=== PATIENT | male | born 1955 | race Caucasian/White ===

== ENCOUNTER 2021-01-24 12:06 | Outpatient (CLI) | payer MEDICARE, SELFPAY ==
[2021-01-24 12:15] VITALS: BP 146/75; PULSE 91; RESP 24; TEMP 37.7; O2SAT 93
[2021-01-24 12:38] VITALS: BP 128/84; PULSE 89; RESP 28; TEMP 37.8; O2SAT 79; BMI 38.6
--- NOTE | 2021-01-24 13:42 | PC.NURSE ---
Pt was SOB upon arriving to [facility]. Pt states he had been SOB for several days. Vitals 99.9, 91 HR, 24 RR, 146/75 BP, 93% RA. Lungs diminished. After infusion, patient remained SOB with vitals 100.1, 28 RR, 89 HR, 128/84, 79% RA. Patient placed on 8 L oxygen mask and taken via gurney to ER. Report given to CONNER Perez charge nurse. Registration notified.
== END 2021-01-24 12:07 | disposition home or self-care (01) ==
LOC: OPS 12:09
PROVIDERS: PCP Family Medicine; Visit Provider Nurse Practitioner
DX: U07.1 COVID-19 (principal)
CPT/HCPCS: 96365

== ENCOUNTER 2021-01-24 13:15 | Inpatient (IN) | payer MEDICARE, SELFPAY ==
[2021-01-24 13:16] VITALS: BP 129/70; PULSE 82; RESP 26; TEMP 37.9; O2SAT 96; BMI 38.6
--- NOTE | 2021-01-24 13:22 | ED_ITS ---
HPI - COVID General: Chief Complaint: COVID symptoms Stated Complaint: RESP DISTRESS, COVID Time Seen by Provider: 01/24/21 13:22 History of Present Illness: HPI Narrative: Mr. Shafer is a 65-year-old gentleman without significant past medical history presents emerged department due to hypoxemia. He has had fairly typical Covid symptoms for approximately 7 days and tested positive for Covid on 01/19. He was at monoclonal antibody infusion clinic today and completed the infusion without apparent complication. Routine vital signs subsequent to this he was found to be hypoxemic with 77% oxygen saturation on room air. He has not had significant changes in his symptoms which are moderate intensity aches, pains, shortness of breath, and weakness, and generalized malaise. He denies any typical allergic reaction or anaphylaxis symptoms at this time. He denies other changes to health, history of similar, exacerbating, provoking, or alleviating factors that he identifies. He presents on 5 L of oxygen via nasal cannula. COVID Results: No Data to Display Review of Systems General: Reports: 10 or more systems reviewed and unremarkable except in HPI and below PFSH ED PFSH: Medical History Coronary artery disease History of 2 stents, does not use any medications other than aspirin No pertinent past medical history Surgical History H/O hemorrhoidectomy History of appendectomy History of heart artery stent Hx laparoscopic cholecystectomy Family History Denies family history of Diabetes Clotting disorder Dementia Social History History of recent travel: No Physical Exam Narrative: EXAM NARRATIVE: GENERAL/CONSTITUTIONAL -somewhat ill-appearing. Eyes - PERRL, no conjunctival injection ENMT - Atraumatic external nose and ears. Moist mucous membranes NECK - supple. trachea midline CARDIOVASCULAR - regular rate and rhythm. RESPIRATORY -coarse to auscultation bilaterally. Mild respiratory distress with tachypnea. Supplemental oxygen in place. ABDOMEN/GI - Nontender/Nondistended. No tenderness to percussion or evidence of peritonitis MSK - Extremities without obvious deformity or tenderness to palpation SKIN - Warm, Dry NEURO - alert and appropriately oriented. Moves all extremities equally. Course ED course: - Patient was seen and evaluated by me at bedside - Patient placed on cardiac monitors, IV access obtained - Initial evaluation notable for somewhat ill appearance, respiratory distress as noted above with supplemental oxygen in place. - Labs notable for no leukocytosis. Metabolic panel consistent with likely dehydration. ABG with compensatory respiratory alkalosis and low PO2. Procalcitonin is elevated raising concern for superimposed bacterial infection, antibiotics given. - Imaging notable for pulmonary infiltrates - Upon serial reexamination after treatment the patient was mildly improved - Based on patient history, evaluation, labs, and imaging as interpreted the most likely cause of the patient's condition is COVID-19 pneumonia with superimposed bacterial pneumonia - The results of ED evaluation were discussed with the patient including plan for admission due to requirement for level of care not available if discharged to prevent significant worsening/deterioration. -Hospitalist service contacted and agreed admit the patient. - Patient was admitted without further deterioration or significant events. Vital Signs: Vital signs: Vital Signs Temperature 98.0 F 01/27/21 20:00 Pulse Rate 59 L 01/27/21 20:00 Respiratory Rate 18 01/27/21 20:00 Blood Pressure 134/80 01/27/21 20:00 Pulse Oximetry 90 01/27/21 20:00 MDM - COVID Medical Records: Attestation: I reviewed the patient's medical records. Lab Data: Attestation: I reviewed the patient's lab results. Labs: Lab Results 01/24/21 01/24/21 01/24/21 14:08 14:11 14:11 WBC 5.3 10^3/uL 10^3/ uL (4.0-10.0) RBC 4.97 10^6/uL 10^6 /uL (4.1-5.3) Hgb 13.6 g/dL g/dL (11.7-16.6) Hct 42.4 % % (42.0-52.0) MCV 85.3 fl fl (80-94) MCH 27.4 pg L pg (28.0-34.0) MCHC 32.1 g/dL g/dL (30.0-36.0) RDW 14.3 % % (12.1-15.1) Plt Count 130 10^3/cmm 10^3 /cmm (130-400) MPV 11.6 fL H fL (7.4-10.4) Lymph % (Auto) Not Reportable [place] % (Auto) Not Reportable Lymph # (Auto) Not Reportable [place] # (Auto) Not Reportable Total Counted 100 (0-100) Atypical Lymphs % 1.0 % % (0-5) Absolute Neutrophi ls 4.0 10^3/cmm 10^3 /cmm (1.4-6.5) Segmented Neutroph ils 74 % % Abs Segm Neuts (Ma n) 3.9 10/cmm 10/cmm (1.6-7.1) Band Neutrophils 1.0 % % Abs Band Neuts (Ma n) 0.1 10^3/cmm 10^3 /cmm (0.0-1.2) Absolute Lymphocyt es 1.1 10^3/cmm L 10 ^3/cmm (1.2-3.4) Lymphocytes (Manua l) 20 % % Monocytes (Manual) 4.0 % % Absolute Monocytes 0.2 10^3/cmm 10^3 /cmm (0.1-0.6) Eosinophils (Manua l) 0 % % Absolute Eosinophi ls 0.0 10^3/cmm 10^3 /cmm (0.0-0.7) Basophils (Manual) 0.0 % % Absolute Basophils 0.0 10^3/cmm 10^3 /cmm (0.0-0.2) Platelet Estimate Normal (Normal) Specimen Type Arterial Sample Site Radial, left ABG pH 7.49 H (7.35-7.45) ABG pCO2 32.2 mmHg L mmHg (35-45) ABG pO2 72.6 mmHg L mmHg (80.0-100.0) ABG HCO3 24.6 mmol/L mmol/ L (22-26) ABG Base Excess 1.9 mmol/L mmol/L (-2.0-2.0) Tc Test Pos Hematocrit 43.6 % % (42-52) O2 Delivery Device Nc O2 Liters/Min 5.0 % % FiO2 40.0 % % Nuclear Licensing Engineer ID [place] Sodium 131 mmol/L L mmol /L (136-145) Potassium 4.1 mmol/L mmol/L (3.5-5.1) Chloride 93 mmol/L L mmol/ L (98-107) Carbon Dioxide 20 mmol/L L mmol/ L (22-29) Anion Gap 22.1 H (5-19) BUN 16 mg/dL mg/dL (8-23) Creatinine 1.2 mg/dL mg/dL (0.7-1.2) GFR Calculation 60.8 mL/min L mL/ min (90-130) Glucose 81 mg/dL mg/dL (65-115) Calculated Osmolal ity 272 mOsm/kg L mOs m/kg (285-295) Lactic Acid Calcium 7.4 mg/dL L mg/dL (8.5-10.5) Total Bilirubin 0.5 mg/dL mg/dL (0.15-1.2) AST 30 U/L U/L (0-40) ALT 13 U/L U/L (0-41) Alkaline Phosphata se 57 IU/L IU/L (40-130) Troponin T Baselin e C-Reactive Protein 127.7 mg/L H mg/L (0.0-4.9) NT-Pro-B Natriuret Pep 357 pg/mL H pg/mL (0-125) Total Protein 6.1 g/dL L g/dL (6.6-8.7) Albumin 3.5 g/dL g/dL (3.5-5.2) Globulin 2.6 g/dL g/dL (1.3-4.6) Procalcitonin 0.69 ng/mL H ng/m L (0-0.5) 01/24/21 01/24/21 14:11 14:11 WBC RBC Hgb Hct MCV MCH MCHC RDW Plt Count MPV Lymph % (Auto) [place] % (Auto) Lymph # (Auto) [place] # (Auto) Total Counted Atypical Lymphs % Absolute Neutrophi ls Segmented Neutroph ils Abs Segm Neuts (Ma n) Band Neutrophils Abs Band Neuts (Ma n) Absolute Lymphocyt es Lymphocytes (Manua l) Monocytes (Manual) Absolute Monocytes Eosinophils (Manua l) Absolute Eosinophi ls Basophils (Manual) Absolute Basophils Platelet Estimate Specimen Type Sample Site ABG pH ABG pCO2 ABG pO2 ABG HCO3 ABG Base Excess Tc Test Hematocrit O2 Delivery Device O2 Liters/Min FiO2 Nuclear Licensing Engineer ID Sodium Potassium Chloride Carbon Dioxide Anion Gap BUN Creatinine GFR Calculation Glucose Calculated Osmolal ity Lactic Acid 1.4 mmol/L mmol/L (0.5-2.2) Calcium Total Bilirubin AST ALT Alkaline Phosphata se Troponin T Baselin e 20 ng/L H ng/L (0-15) C-Reactive Protein NT-Pro-B Natriuret Pep Total Protein Albumin Globulin Procalcitonin EKG Data: EKG 1: Attestation: I personally reviewed and interpreted this EKG as follows: EKG interpretation date: 01/24/21 EKG interpretation time: 13:52 Interpretation: Twelve-lead EKG shows a regular rhythm at a rate of 83. IL interval 172, QRS duration 103, QTc 385. Normal axis. Interpretation sinus rhythm EKG 2: Attestation: I personally reviewed and interpreted this EKG as follows: EKG interpretation date: 01/24/21 EKG interpretation time: 18:12 Interpretation: Twelve-lead EKG shows a regular rhythm at a rate of 73. IL interval 191, QRS duration 90, Qtc 360 Normal axis Interpretation: Sinus rhythm. Limited interpretation due to baseline wander. COVID Results: No Data to Display Discharge Plan Discharge Admit Provider: Toñito Caldwell Coding Level of Care Code ED Upsetter Setter Up for g Edwar
--- NOTE | 2021-01-24 13:30 | XR_ITS ---
WS: [id number] Exam: XR chest 1V portable [id number] Date/Time of Exam: 01/24/2021 1:32 PM Reason For Exam: covid hypoxemia Comparison 04/18/2013. Bilateral widespread patchy infiltrates throughout both lungs suggesting pneumonia. Cardiomediastinal structures are unremarkable in appearance. No pleural effusions or pneumothorax. A right-sided opaqu e line is noted and may represent a PICC line. The line extends below the level of the diaphragm. Exa ct location is unclear. The line may extend into the IVC. Regional bony structures are intact. Surgic al clips along the left axilla. XR/XR chest 1V portable [id number] IMPRESSION: 1. Widespread bilateral pulmonary infiltrates suggesting active pneumonia.
--- NOTE | 2021-01-24 13:31 | ECG_ITS ---
[facility] Test Date: 2021-01-24 Pat Name: Darrell Shafer Department: Room: Gender: Male Manager Fire: : 1955 Requested By: Manuel Wiggins Order Number: [id number] Jony MD: Tess Silva M.D. Measurements Intervals [place] Rate: 83 P: 10 IN: 172 QRS: 3 QRSD: 103 T: -14 QT: 345 QTc: 408 Interpretive Statements SINUS RHYTHM WITH OCCASIONAL SUPRAVENTRICULAR PREMATURE COMPLEXES LOW QRS VOLTAGE IN PRECORDIAL LEADS [QRS DEFLECTION < 1.0 mV IN CHEST LEADS] POSSIBLE RIGHT VENTRICULAR CONDUCTION DELAY [RSR (QR) IN V1/V2] ANTEROLATERAL MYOCARDIAL INFARCTION , OF INDETERMINATE AGE Compared to ECG 02/16/2014 05:32:22 Low QRS voltage now present Myocardial infarct finding still present Electronically Signed On 01-25-2021 12:39:51 LADDERMAN by Tess Silva M.D. [id number]
[2021-01-24 14:22] LABS: ABG PCO2 32.2 mmHg (35-45); ABG PH Result 7.49 (7.35-7.45); Arterial Blood Gas Hematocrit 43.6 % (42-52); Base Excess ABG 1.9 mmol/L (-2.0-2.0); Blood Gas Allen Test Pos; Blood Gas Operator Identificat MONRO; Blood Gas Sample Site Radial, left; Blood Gas Sample Type Arterial; HCO3 ABG 24.6 mmol/L (22-26); Oxygen Device NC; PO2 ABG 72.6 mmHg (80.0-100.0)
[2021-01-24 14:27] LABS: Hematocrit 42.4 % (42.0-52.0); Hemoglobin 13.6 g/dL (11.7-16.6); Mean Corpuscular HGB Conc 32.1 g/dL (30.0-36.0); Mean Corpuscular Hemoglobin 27.4 pg (28.0-34.0); Mean Corpuscular Volume 85.3 fl (80-94); Mean Platelet Volume 11.6 fL (7.4-10.4); Platelet Count 130 10^3/cmm (130-400); Red Blood Count 4.97 10^6/uL (4.1-5.3); Red Cell Distribution Width 14.3 % (12.1-15.1); White Blood Count 5.3 10^3/uL (4.0-10.0)
[2021-01-24 14:48] LABS: Lactic Sepsis W/Reflex 1.4 mmol/L (0.5-2.2)
[2021-01-24 14:49] LABS: Troponin(5th) Baseline 20 ng/L (0-15)
[2021-01-24 14:58] LABS: NT Pro B Type Natriuretic Pept 357 pg/mL (0-125); Procalcitonin 0.69 ng/mL (0-0.5)
[2021-01-24 15:09] LABS: Alanine Aminotransferase 13 U/L (0-41); Albumin Level 3.5 g/dL (3.5-5.2); Alkaline Phosphatase 57 IU/L (40-130); Anion Gap 22.1 (5-19); Aspartate Amino Transferase 30 U/L (0-40); Blood Urea Nitrogen 16 mg/dL (8-23); C Reactive Protein 127.7 mg/L (0.0-4.9); Calcium 7.4 mg/dL (8.5-10.5); Carbon Dioxide 20 mmol/L (22-29); Chloride 93 mmol/L (98-107); Globulin 2.6 g/dL (1.3-4.6); Glomerular Filtration Rate 60.8 mL/min (90-130); Glucose 81 mg/dL (65-115); Osmolality Calculated 272 mOsm/kg (285-295); Potassium 4.1 mmol/L (3.5-5.1); Sodium 131 mmol/L (136-145); Total Bilirubin 0.5 mg/dL (0.15-1.2); Total Protein 6.1 g/dL (6.6-8.7)
--- NOTE | 2021-01-24 15:31 | ECG_ITS ---
[facility] Test Date: 2021-01-24 Pat Name: Darrell Shafer Department: Room: Gender: Male Associate Trainer: : 1955 Requested By: Manuel Wiggins Order Number: [id number] Jony MD: Tess Silva M.D. Measurements Intervals [place] Rate: 73 P: 26 NE: 191 QRS: -2 QRSD: 90 T: -18 QT: 334 QTc: 370 Interpretive Statements SINUS RHYTHM WITH OCCASIONAL VENTRICULAR PREMATURE COMPLEXES WITH OCCASIONAL SUPRAVENTRICULAR PREMATURE COMPLEXES LOW QRS VOLTAGE IN PRECORDIAL LEADS [QRS DEFLECTION < 1.0 mV IN CHEST LEADS] POSSIBLE ANTERIOR MYOCARDIAL INFARCTION , OF INDETERMINATE AGE [30 ms Q WAVE IN V3/V4, OR R < 0.2 mV IN V4] Compared to ECG 01/24/2021 13:49:36 Ventricular premature complex(es) now present Myocardial infarct finding still present Electronically Signed On 01-25-2021 12:57:23 TELEPHONE AD TAKER by Tess Silva M.D. [id number]
[2021-01-24 15:40] LABS: Absolute Segmented Neutrophil 3.9 10/cmm (1.6-7.1); Band Neutrophils Absolute 0.1 10^3/cmm (0.0-1.2); Eosinophils 0 %; Lymphocytes 20 %; Lymphocytes Absolute 1.1 10^3/cmm (1.2-3.4); Monocytes Absolute 0.2 10^3/cmm (0.1-0.6); Platelet Estimate Normal (Normal); Segmented Neutrophils 74 %; Total Cells Counted 100 (0-100)
[2021-01-24] MEDS: acetaminophen 325 mg Tablet 650 MG PO (15:41)
[2021-01-24] MEDS: cefTRIAXone 1,000 MG in sodium chloride 0.9% (plus) 50 ML 100 MG IV (15:41)
[2021-01-24] MEDS: doxycycline 100 MG in sodium chloride 0.9% (plus) 100 ML IV (15:46)
[2021-01-24] MEDS: sodium chloride 0.9% 500 ML 999 ML IV (15:46)
--- NOTE | 2021-01-24 16:41 | PC.PHAR ---
PT STATES HE TAKES CARE OF HIS OWN MEDICATIONS-PT STATES HE TAKES NO RX MEDICATIONS PT STATES HE ONLY TAKES OTC MEDS THAT ARE ENTERED
[2021-01-24 16:59] LABS: Troponin 5 2HR 24.34 ng/L (0-15); Troponin 5 2HR Delta 4.34 ABS# (0-10)
--- NOTE | 2021-01-24 17:52 | P.HP_ITS ---
Providers/Chief Complaint Primary Care Provider: Shadi Borja MD Chief Complaint: RESP DISTRESS, COVID History of Present Illness Darrell Shafer is a 65 year old male who has history of coronary disease, does not take any medication at home presented from monoclonal antibody infusion clinic for hypoxia. After his monoclonal antibody fusion he was sent to the ER when his pulse ox was showing saturation 77% on room air. Patient is stating that his symptoms started on Sunday with diarrhea, fatigue, lethargy chills. He has not noticed any fevers. He has been gradually getting short of breath, on Friday 01/19 he was diagnosed with COVID-19 infection. In the ER he was diagnosed with fever, hypoxia was requiring 5 nasal cannula, no leukocytosis, hypoxia evident on ABG, mild hyponatremia He was given remdesivir and Decadron loading dose Patient's brother should be notified in case of any emergencies Review of Systems Const: Reports: chills, body aches, change in appetite, fatigue, malaise and diaphoresis Eyes: Denies: change in vision ENMT: Denies: throat pain Card: Reports: dyspnea on exertion; Denies: chest pain or orthopnea Resp: Reports: dyspnea and non-productive cough GI: Reports: diarrhea; Denies: abdominal pain : Denies: flank pain Musc: Reports: muscle cramps; Denies: neck pain Skin/Breast: Denies: rash Neuro: Denies: headache(s) Psych: Denies: anxiety Endo: Denies: polyuria Arron/Lymph: Denies: easy bruising All/Imm: Denies: urticaria Medications/Allergies Home Medications Medication Instructions Recorded Confirmed Last Taken Type Fish Oil 2 cap PO DAILY 01/24/21 01/24/21 Unknown History Vitamin B-12 1 tab PO DAILY 01/24/21 01/24/21 Unknown History ascorbic acid (vitamin C) [Vitamin 500 mg PO DAILY 01/24/21 01/24/21 Unknown His tory C] aspirin [Aspir-81] 81 mg PO QAM 01/24/21 01/24/21 Unknown History cholecalciferol (vitamin D3) 25 mcg PO DAILY 01/24/21 01/24/21 Unknown History [Vitamin D3] garlic 2 tab PO DAILY 01/24/21 01/24/21 Unknown History multivitamin 1 tab PO QAM 01/24/21 01/24/21 Unknown History turmeric 400 mg PO DAILY 01/24/21 01/24/21 Unknown History zinc 50 mg PO DAILY 01/24/21 01/24/21 Unknown History Allergies Allergy/AdvReac Type Severity Reaction Status Date / Time No Known Allergies Allergy Verified 01/24/21 16:41 PFSH Acute PFSH: Medical History Coronary artery disease History of 2 stents, does not use any medications other than aspirin No pertinent past medical history Surgical History H/O hemorrhoidectomy History of appendectomy History of heart artery stent Hx laparoscopic cholecystectomy Family History Denies family history of Diabetes Clotting disorder Dementia Social History History of recent travel: No Vitals/I&O/Wt Last Vital Signs Temp 100.2 F H 01/24/21 13:16 Pulse 82 01/24/21 13:16 Resp 26 H 01/24/21 13:16 BP 129/70 01/24/21 13:16 Pulse Ox 96 01/24/21 13:16 Weight last 48 hrs Weight 129.274 kg Physical Exam Narrative: EXAM NARRATIVE: Obese male Saturating well on 4 L nasal cannula No acute respiratory distress Bilateral breath sounds with mild fusion rhonchi S1, S2 Abdomen distended with obesity Lower symmetry no edema EOMI, PERRLA Nonfocal neuro exam Does not look dehydrated or fluid overloaded Data : 01/24/21 14:11 01/24/21 14:11 A&P Assessment and plan (1) COVID-19 determined by clinical diagnostic criteria: Status: Acute Additional A&P Information COVID-19 infection Acute hypoxia Febrile, requiring 4 to 5 L of nasal cannula Start remdesivir and Decadron Start multivitamins Check inflammatory markers every 48 hours Procalcitonin 0.6 if it trends down in next 48 hours will discontinue Levaquin His symptoms started on 01/17, today came from monoclonal antibody infusion cli [facility]ad, In case of worsening of hyponatremia might benefit from gentle fluid hydration considering diarrheal episodes Regular diet DVT prophylaxis we will keep him on Eliquis for now Full code Attestations Medical Necessity Statement*: More than 2 midnights in the hospital expected due to COVID-19 infection Time Spent in Patient Care: Greater than 35 minutes Coding Level of Care Code Acute Plastics And Composites Inspector for Chg Fwd Diagnoses COVID-19 determined by clinical diagnostic criteria U07.1
[2021-01-24] MEDS: dexamethasone 10 mg/mL INJ IVP (17:55)
[2021-01-24] MEDS: remdesivir 200 MG in sodium chloride 0.9% (100 ml) 60 ML 100 MG IV (17:59)
[2021-01-24 19:23] VITALS: BP 118/76; PULSE 108; RESP 20; O2SAT 98
--- NOTE | 2021-01-24 19:31 | ECG_ITS ---
[facility] Test Date: 2021-01-24 Pat Name: Darrell Shafer Department: Room: 270 Gender: Male Surety Bond Agent: : 1955 Requested By: Manuel Wiggins Order Number: [id number] Jony MD: Wesly Bragg M.D. Measurements Intervals [place] Rate: 72 P: 19 [place]: 213 QRS: 2 QRSD: 78 T: -33 QT: 362 QTc: 399 Interpretive Statements SINUS RHYTHM WITH SINUS ARRHYTHMIA WITH FIRST DEGREE AV BLOCK LOW QRS VOLTAGE IN PRECORDIAL LEADS [QRS DEFLECTION < 1.0 mV IN CHEST LEADS] NONSPECIFIC ST & T-WAVE ABNORMALITY Compared to ECG 01/24/2021 18:03:19 First degree AV block now present T-wave abnormality now present Ventricular premature complex(es) no longer present Myocardial infarct finding no longer present Electronically Signed On 01-25-2021 22:00:22 PAIRER SUBSTANDARD by Wesly Bragg M.D. [id number]
[2021-01-24 19:48] VITALS: BMI 5253.0
[2021-01-24] MEDS: levoFLOXacin 750 mg Tablet PO (20:31)
[2021-01-24] MEDS: apixaban 5 mg Tablet 2.5 MG PO (20:31)
[2021-01-24 21:38] LABS: Troponin 5 6HR 18.37 ng/L (0-15)
[2021-01-24 21:40] LABS: Troponin 5 6HR Delta -1.63 ng/L (0-12)
[2021-01-25] VITALS (7 sets, daily range): BP systolic 118–138; BP diastolic 71–82; PULSE 66–78; RESP 16–18; TEMP 36.4–37.1; O2SAT 92–97
[2021-01-25 06:45] LABS: D Dimer 1.32 ug/mIFEU (0-0.59)
--- NOTE | 2021-01-25 06:46 | PC.NURSE ---
Patient arrived to floor via stretcher, denies pain, on sufficient oxygen at this time. VSS, AAOx4, denies being incontinent of BB, OOBTC and bathroom, voiding without difficulty but urine is tea colored. Patient rested well throughout night. Room clutter free and call light in reach.
[2021-01-25 06:53] LABS: Lactate Dehydrogenase 658 U/L (135-225); Magnesium 2.3 mg/dL (1.7-2.3); Phosphorus 2.8 mg/dL (2.5-4.5)
[2021-01-25 06:55] LABS: Procalcitonin 0.45 ng/mL (0-0.5)
[2021-01-25 07:04] LABS: Creatine Phosphokinase 625 U/L (39-308)
--- NOTE | 2021-01-25 07:20 | CT_ITS ---
WS: [id number] CTA OF THE CHEST WITH PULMONARY EMBOLISM PROTOCOL TECHNIQUE: High-resolution contrast enhanced CTA of the chest with coronal and sagittal reformatted i mages with pulmonary embolism protocol. MIP images are also reviewed. CLINICAL INFORMATION: PE hypoxia covid COMPARISON: CT 10 DLP: 617.[address] scans at [facility] use at least one of these dose optimization techniques: automated e xposure control; mA and/or kV adjustment per patient size (includes targeted exams where dose is matc hed to clinical indication); or iterative reconstruction. FINDINGS: Proximal main pulmonary arteries are normal. Normal segmental and subsegmental pulmonary arteries. No filling defects to suggest pulmonary embolus. Coronary calcification. Diffuse patchy hazy groundglas s infiltrates throughout both lungs suspicious for COVID 19 pneumonia. No focal pneumonia or pleural fluid. Reactive anterior mediastinal, hilar, and peribronchial lymph nodes. Small pericardial effusio n. No axillary lymphadenopathy. Adrenal glands are normal. Cholelithiasis. Normal GE junction. Fatty atrophy of the pancreas. CT/CT angio chest PE protcl [id number] IMPRESSION: 1. Proximal main pulmonary arteries are normal. No filling defects to suggest pulmonary embolus. 2. Diffuse patchy hazy groundglass infiltrates suspicious for COVID 19 pneumon ia. 3. Reactive mediastinal, hilar, and peribronchial lymph nodes.
--- NOTE | 2021-01-25 07:20 | USCV_ITS ---
Darrell Shafer Age: 65 Gender: M : 1955 Exam Date: 01/25/2021 12:17 Ordering Phys: Toñito Caldwell MD Technologist: GUTIERREZ Exam Location: [facility] [place] Indication: DIMER HIGH, HYPOXIA, SWELLING HISTORY: Hypoxia PROCEDURES: Venous duplex imaging was performed in bilateral lower extremities. The following venous structures were evaluated: common femoral vein, profunda vein, proximal portion of the greater saphenous vein, superficial femoral vein, and the popliteal vein. In addition, the posterior tibial and peroneal trunk were evaluated. FINDINGS: Normal 2-D Doppler and augmentation and compressibility throughout the lower extremity venous structures. Additional imaging through the proximal calf veins also reveals no thrombus. Limited evaluation of the greater saphenous vein is patent with no thrombus.. CONCLUSIONS No evidence of right lower extremity DVT. No evidence of left lower extremity DVT. Frandy Gallegos MD (Electronically Signed) Final Date: 25 January 2021 17:05 S
[2021-01-25] MEDS: iohexol 350 mg/mL 100 mL Btl IV (09:04)
[2021-01-25] MEDS: tocilizumab 800 MG in sodium chloride 0.9% (100 ml) 100 ML 100 MG IV (10:35)
[2021-01-25] MEDS: apixaban 5 mg Tablet 2.5 MG PO ×2 (10:36→21:58)
[2021-01-25] MEDS: zinc gluconate 50 mg Tablet PO (10:36)
[2021-01-25] MEDS: ascorbic acid 500 mg Tablet PO (10:36)
[2021-01-25] MEDS: cholecalciferol (vitamin D3) 1,000 unit Tablet 1000 UNIT PO (10:36)
[2021-01-25] MEDS: aspirin 81 mg EC Tablet PO (10:36)
--- NOTE | 2021-01-25 12:11 | P.PN_ITS ---
Subjective Subjective: Interval history: Patient seen and examined this morning patient is doing well on 5 L nasal cannula CTA chest requested to rule out PE Patient experiencing multiple bouts of dry cough Tried to call the next of kin listed on the chart it is stating that voicemail set up not available, patient has been updating his family on his own Patient endorsing feeling slightly better than admission Requested Actemra 01/25 Vitals/I&O/Wt Last Vital Signs Temp 97.5 F L 01/25/21 11:58 Pulse 73 01/25/21 11:58 Resp 17 01/25/21 11:58 BP 134/79 01/25/21 11:58 Pulse Ox 94 01/25/21 11:58 01/24/21 01/25/21 01/25/21 22:59 06:59 14:59 Intake Total 910 / 910 120 / 1030 480 / 480 Output Total 600 / 600 Balance 910 / 910 -480 / 430 480 / 480 Weight last 48 hrs Weight 122.016 kg Weight 129.274 kg Physical Exam Narrative: EXAM NARRATIVE: Patient was eating breakfast Multiple bouts of dry cough Bilateral breath sound with rhonchi at the bases Soft abdomen S1, S2 Nonfocal neuro exam No joint swelling Lower extremity no edema Saturating well on 5 L nasal cannula Appropriate mood and affect Data : 01/24/21 14:11 01/24/21 14:11 Micro: Microbiology 01/25/21 05:35 Bacterial Antigens - Final Urine,Clean Catch A&P Assessment and plan (1) COVID-19 determined by clinical diagnostic criteria: Status: Acute (2) Acute respiratory failure with hypoxia: Status: Acute Additional A&P Information Acute hypoxia related to COVID-19 Actemra dose 01/25 Procalcitonin 0.4 Discontinue antibiotics Negative delta troponin CTA ruled out PE Doing well on 5 L nasal cannula Continue IV Decadron and steroids and multivitamins Monitor for next 72 hours Regular diet Full code DVT prophylaxis Eliquis 2.5 twice daily Attestations Medical Necessity Statement*: Monitor for next 72 hours Time Spent in Patient Care: less than 15 minutes Coding Level of Care Code Acute Synthetic Plasterer for Chg Fwd Diagnoses COVID-19 determined by clinical diagnostic criteria U07.1 Acute respiratory failure with hypoxia J96.01
[2021-01-25] MEDS: remdesivir 100 MG in sodium chloride 0.9% (100 ml) 100 ML IV (17:29)
[2021-01-25] MEDS: guaiFENesin 100 mg/5 mL UDC 10 mL 400 MG PO (17:29)
[2021-01-25] MEDS: dexamethasone 4 mg/mL INJ 6 MG IVP (17:29)
[2021-01-26] VITALS (8 sets, daily range): BP systolic 108–137; BP diastolic 65–85; PULSE 59–87; RESP 16–20; TEMP 36.3–36.6; O2SAT 91–95
[2021-01-26 05:36] LABS: Basophils % 0.1 %; Hematocrit 44.6 % (42.0-52.0); Hemoglobin 14.5 g/dL (11.7-16.6); Lymphocytes % 12.1 %; Mean Corpuscular HGB Conc 32.5 g/dL (30.0-36.0); Mean Corpuscular Hemoglobin 27.4 pg (28.0-34.0); Mean Corpuscular Volume 84.3 fl (80-94); Monocytes # 0.4 10^3/uL (0.2-0.9); Monocytes % 4.3 %; Neutrophils # 6.85 10^3/uL (1.8-7.7); Neutrophils % 82.8 %; Nucleated Red Blood Cells % 0 %; Platelet Count 177 10^3/cmm (130-400); Red Blood Count 5.29 10^6/uL (4.1-5.3); Red Cell Distribution Width 14.2 % (12.1-15.1); White Blood Count 8.3 10^3/uL (4.0-10.0)
[2021-01-26 06:06] LABS: Alanine Aminotransferase 16 U/L (0-41); Albumin Level 3.2 g/dL (3.5-5.2); Alkaline Phosphatase 59 IU/L (40-130); Anion Gap 16.3 (5-19); Aspartate Amino Transferase 27 U/L (0-40); Blood Urea Nitrogen 24 mg/dL (8-23); Calcium 8.3 mg/dL (8.5-10.5); Carbon Dioxide 22 mmol/L (22-29); Chloride 105 mmol/L (98-107); Globulin 3.3 g/dL (1.3-4.6); Glucose 145 mg/dL (65-115); Osmolality Calculated 295 mOsm/kg (285-295); Potassium 4.3 mmol/L (3.5-5.1); Sodium 139 mmol/L (136-145); Total Bilirubin 0.3 mg/dL (0.15-1.2); Total Protein 6.5 g/dL (6.6-8.7)
[2021-01-26] MEDS: aspirin 81 mg EC Tablet PO (06:43)
[2021-01-26] MEDS: cholecalciferol (vitamin D3) 1,000 unit Tablet 1000 UNIT PO (10:50)
[2021-01-26] MEDS: apixaban 5 mg Tablet 2.5 MG PO ×2 (10:50→20:12)
[2021-01-26] MEDS: benzonatate 100 mg Capsule PO (10:51)
[2021-01-26] MEDS: zinc gluconate 50 mg Tablet PO (10:51)
[2021-01-26] MEDS: ascorbic acid 500 mg Tablet PO (10:52)
--- NOTE | 2021-01-26 13:02 | PM.PN ---
Subjective Subjective: Interval history: Patient was seen and examined this morning, he is complaining of dry cough otherwise his shortness of breath has improved, he is having regular bowel movement, afebrile no leukocytosis eager to return home Vitals/I&O/Wt Last Vital Signs Temp 97.8 F 01/26/21 12:00 Pulse 70 01/26/21 12:00 Resp 18 01/26/21 12:00 BP 137/81 01/26/21 12:00 Pulse Ox 94 01/26/21 12:00 01/25/21 01/26/21 01/26/21 22:59 06:59 14:59 Intake Total 460 / 1320 360 / 360 Output Total 1000 / 1000 Balance -540 / 320 360 / 360 Weight last 48 hrs Weight 122.016 kg Weight 129.274 kg Physical Exam Narrative: EXAM NARRATIVE: Patient came out of bathroom, he was saturating well on 5 L nasal cannula No acute respite distress no conversational dyspnea S1, S2 Clinically looks euvolemic Nonfocal neuro exam Abdomen soft Bilateral breath sounds without adventitious rhonchi Data : 01/26/21 04:59 01/26/21 04:59 Micro: Microbiology 01/25/21 05:35 Sputum Culture - Preliminary Sputum - Expectorated Sputum 01/24/21 21:35 MRSA Culture - Final Nose 01/25/21 05:35 Bacterial Antigens - Final Urine,Clean Catch A&P Assessment and plan (1) Acute respiratory failure with hypoxia: Status: Acute (2) COVID-19 determined by clinical diagnostic criteria: Status: Acute (3) Dry cough: Status: Acute Additional A&P Information Acute hypoxia related to COVID-19 D-dimer high no signs of PE or DVT Patient is saturating well on 5 L nasal cannula Regular bowel movement Eating his meals Able to walk to the bathroom, shortness of breath has not worsened I am hopeful that he might be able to go home on Sunday after home O2 evaluation Continue IV Decadron and remdesivir, he did get 1 dose of Actemra Full code DVT prophylaxis Eliquis Regular diet Attestations Medical Necessity Statement*: Continue medical management Time Spent in Patient Care: less than 15 minutes Coding Level of Care Code Acute Nutritional Assistant for [facility] Fwd Diagnoses Acute respiratory failure with hypoxia J96.01 COVID-19 determined by clinical diagnostic criteria U07.1 Dry cough R05.8
[2021-01-26] MEDS: dexamethasone 4 mg/mL INJ 6 MG IVP (18:16)
[2021-01-26] MEDS: remdesivir 100 MG in sodium chloride 0.9% (100 ml) 100 ML IV (18:59)
[2021-01-27] VITALS (8 sets, daily range): BP systolic 120–134; BP diastolic 73–80; PULSE 58–68; RESP 16–20; TEMP 36.4–36.7; O2SAT 87–95
[2021-01-27 06:19] LABS: Basophils % 0.2 %; Hematocrit 43.5 % (42.0-52.0); Hemoglobin 14.2 g/dL (11.7-16.6); Lymphocytes # 1.1 10^3/uL (0.8-4.8); Mean Corpuscular HGB Conc 32.6 g/dL (30.0-36.0); Mean Corpuscular Hemoglobin 28.1 pg (28.0-34.0); Mean Platelet Volume 11.5 fL (7.4-10.4); Monocytes # 0.4 10^3/uL (0.2-0.9); Monocytes % 3.8 %; Neutrophils # 9.14 10^3/uL (1.8-7.7); Neutrophils % 84.8 %; Nucleated Red Blood Cells % 0 %; Platelet Count 201 10^3/cmm (130-400); Red Blood Count 5.06 10^6/uL (4.1-5.3); Red Cell Distribution Width 14.5 % (12.1-15.1); White Blood Count 10.8 10^3/uL (4.0-10.0)
[2021-01-27] MEDS: aspirin 81 mg EC Tablet PO (06:24)
[2021-01-27 06:48] LABS: Slide Review Slide Review Perform
[2021-01-27 06:50] LABS: Alanine Aminotransferase 17 U/L (0-41); Albumin Level 3.2 g/dL (3.5-5.2); Alkaline Phosphatase 67 IU/L (40-130); Anion Gap 17.5 (5-19); Aspartate Amino Transferase 25 U/L (0-40); Blood Urea Nitrogen 26 mg/dL (8-23); C Reactive Protein 42.8 mg/L (0.0-4.9); Calcium 8.1 mg/dL (8.5-10.5); Carbon Dioxide 22 mmol/L (22-29); Chloride 104 mmol/L (98-107); Glucose 136 mg/dL (65-115); Osmolality Calculated 295 mOsm/kg (285-295); Potassium 4.5 mmol/L (3.5-5.1); Sodium 139 mmol/L (136-145); Total Bilirubin 0.4 mg/dL (0.15-1.2); Total Protein 6.2 g/dL (6.6-8.7)
--- NOTE | 2021-01-27 07:54 | PC.NURSE ---
patient had removed 02 and went to the bathroom and back. he was sitting in bed with out the 02 on. 89%. he then put the 02 back on.
[2021-01-27] MEDS: benzonatate 100 mg Capsule PO (08:05)
[2021-01-27] MEDS: apixaban 5 mg Tablet 2.5 MG PO ×2 (08:05→20:21)
[2021-01-27] MEDS: zinc gluconate 50 mg Tablet PO (08:05)
[2021-01-27] MEDS: ascorbic acid 500 mg Tablet PO (08:05)
[2021-01-27] MEDS: cholecalciferol (vitamin D3) 1,000 unit Tablet 1000 UNIT PO (08:05)
--- NOTE | 2021-01-27 09:05 | PC.SOCIAL ---
IMM updated, IMM dated and initialed and copy given to patient.
--- NOTE | 2021-01-27 13:00 | PM.PN ---
Subjective Subjective: Interval history: Patient was seen and examined this morning, he saturating well on 5 L cannula patient is stating that he try to walk in the room without oxygen and his O2 saturation dropped down to 89% after 5 minutes, however he is doing well on 5 L, he has been going to the bathroom on his own Feeling better, Afebrile no worsening of leukocytosis, inflammatory markers are trending down Vitals/I&O/Wt Last Vital Signs Temp 97.6 F 01/27/21 07:54 Pulse 68 01/27/21 07:54 Resp 20 H 01/27/21 07:54 BP 120/75 01/27/21 07:54 Pulse Ox 87 L 01/27/21 10:16 01/26/21 01/27/21 01/27/21 22:59 06:59 14:59 Intake Total 460 / 1300 580 / 1880 600 / 600 Balance 460 / 1300 580 / 1880 600 / 600 Physical Exam Narrative: EXAM NARRATIVE: Patient was sitting in his bed Bilateral breath sound without adventitious rhonchi or crackles Dry cough Abdomen soft S1, S2 Clinically looks euvolemic Nonfocal neuro exam Data : 01/27/21 05:33 01/27/21 05:33 Micro: Microbiology 01/25/21 05:35 Sputum Culture - Final Sputum - Expectorated Sputum A&P Assessment and plan (1) Dry cough: Status: Acute (2) Acute respiratory failure with hypoxia: Status: Acute (3) COVID-19 determined by clinical diagnostic criteria: Status: Acute Additional A&P Information COVID-19 related persistent hypoxia Doing well on 5 L nasal cannula Plan to discharge him tomorrow with home O2 evaluation, inflammatory markers trending down Doing well on 5 L nasal cannula No active shortness of breath or chest pain, for dry cough Robitussin and Tessalon Perles seem to help a little bit He does have used bedside flutter valve Continue multivitamins Full code DVT prophylaxis Eliquis Regular diet Discharge tomorrow Attestations Medical Necessity Statement*: Discharge tomorrow Time Spent in Patient Care: less than 15 minutes Coding Level of Care Code Acute Plastic Bubble Packer for Chg Fwd Diagnoses Dry cough R05.8 Acute respiratory failure with hypoxia J96.01 COVID-19 determined by clinical diagnostic criteria U07.1
[2021-01-27] MEDS: dexamethasone 4 mg/mL INJ 6 MG IVP (17:31)
[2021-01-27] MEDS: remdesivir 100 MG in sodium chloride 0.9% (100 ml) 100 ML IV (17:35)
--- NOTE | 2021-01-27 19:00 | PC.NURSE ---
Report to [facility] at this time.
[2021-01-28] VITALS: BP 138/82; PULSE 69; RESP 17; TEMP 36.6; O2SAT 92
[2021-01-28 04:00] VITALS: BP 138/78; PULSE 83; RESP 17; TEMP 36.6; O2SAT 91
[2021-01-28] MEDS: aspirin 81 mg EC Tablet PO (06:01)
[2021-01-28 06:51] LABS: Basophils % 0.1 %; Hematocrit 42.8 % (42.0-52.0); Lymphocytes # 1.4 10^3/uL (0.8-4.8); Lymphocytes % 14.4 %; Mean Corpuscular HGB Conc 32.7 g/dL (30.0-36.0); Mean Corpuscular Hemoglobin 28.1 pg (28.0-34.0); Mean Corpuscular Volume 85.9 fl (80-94); Mean Platelet Volume 11.3 fL (7.4-10.4); Monocytes # 0.4 10^3/uL (0.2-0.9); Monocytes % 4.5 %; Neutrophils # 7.76 10^3/uL (1.8-7.7); Neutrophils % 80.4 %; Nucleated Red Blood Cells % 0 %; Platelet Count 227 10^3/cmm (130-400); Red Blood Count 4.98 10^6/uL (4.1-5.3); Red Cell Distribution Width 14.5 % (12.1-15.1); White Blood Count 9.7 10^3/uL (4.0-10.0)
[2021-01-28 07:10] LABS: Alanine Aminotransferase 21 U/L (0-41); Alkaline Phosphatase 73 IU/L (40-130); Aspartate Amino Transferase 26 U/L (0-40); Chloride 104 mmol/L (98-107); Globulin 2.9 g/dL (1.3-4.6); Potassium 4.5 mmol/L (3.5-5.1); Sodium 140 mmol/L (136-145)
[2021-01-28 07:52] LABS: Albumin Level 3.3 g/dL (3.5-5.2); Anion Gap 16.5 (5-19); Blood Urea Nitrogen 24 mg/dL (8-23); Calcium 8.5 mg/dL (8.5-10.5); Carbon Dioxide 24 mmol/L (22-29); Glomerular Filtration Rate 84.7 mL/min (90-130); Glucose 121 mg/dL (65-115); Osmolality Calculated 291 mOsm/kg (285-295); Total Bilirubin 0.5 mg/dL (0.15-1.2); Total Protein 6.2 g/dL (6.6-8.7)
[2021-01-28 07:59] LABS: Slide Review Slide Review Perform
[2021-01-28 08:12] VITALS: BP 127/63; PULSE 54; RESP 16; TEMP 36.6; O2SAT 92
[2021-01-28 09:02] VITALS: PULSE 54; RESP 16; O2SAT 95
--- NOTE | 2021-01-28 09:09 | PM.DCS ---
Discharge Providers Date of Admission: 01/24/21 16:21 Date of Discharge: January 28, 2021 Attending Provider at Admission: oTñito Caldwell MD Attending Provider at Discharge: Toñito Caldwell MD Primary Care Provider: Shadi Borja MD Diagnoses at Discharge Discharge Diagnosis (1) Dry cough: Status: Acute (2) Acute respiratory failure with hypoxia: Status: Acute (3) COVID-19 determined by clinical diagnostic criteria: Status: Acute Reason for Visit Reason for Visit: RESP DISTRESS, COVID Hospital Course Hospital Course History of Present Illness Darrell Shafer is a 65 year old male who has history of coronary disease, does not take any medication at home presented from monoclonal antibody infusion clinic for hypoxia. After his monoclonal antibody fusion he was sent to the ER when his pulse ox was showing saturation 77% on room air. Patient is stating that his symptoms started on Sunday with diarrhea, fatigue, lethargy chills. He has not noticed any fevers. He has been gradually getting short of breath, on Friday 01/19 he was diagnosed with COVID-19 infection. In the ER he was diagnosed with fever, hypoxia was requiring 5 nasal cannula, no leukocytosis, hypoxia evident on ABG, mild hyponatremia He was given remdesivir and Decadron loading dos Hospital course Patient was admitted on 01/24 for management of hypoxia related to COVID-19. On 01/25 he was given Actemra. He was given multivitamins along IV Decadron and remdesivir. During his hospitalization he was able to walk in the room and go to the bathroom and keep his O2 saturation above 90% on 3 to 4 L, he did develop dry cough which improved with use of dextromethorphan and Tessalon Perles. He did use a flutter valve on a daily basis. Home O2 evaluation was done and he qualified for 3 L at the time of discharge 01/28. He will be discharged home on albuterol rescue inhaler, Medrol pack, he can continue his multivitamins. Procalcitonin unremarkable, he never spiked fever during his hospitalization.He is in negative he was counseled to get COVID-19 vaccine after 90 days of his infection. Quarantine for 20 days(till February 07). His D-dimer was high secondary to inflammation due to COVID-19 however CTA chest ruled out PE, no signs of clots on venous Dopplers. Physical Exam Narrative: EXAM NARRATIVE: Patient was sitting in his bed Bilateral breath sound without adventitious rhonchi or crackles Dry cough Abdomen soft S1, S2 Clinically looks euvolemic Nonfocal neuro exam Discharge Data Data Completed and Pending: Completed Studies During Hospitalization Category Date Time Status CT angio chest PE protcl [id number] Stat Cat Scan 01/25/21 07:20 Completed XR chest 1V kristen ble [id number] Urgent Exams 01/24/21 13:30 [place] [id number] Routin e Ultrasound 01/25/21 07:20 Completed Labs from last 24 hours 01/28/21 01/28/21 06:00 06:00 WBC 9.7 RBC 4.98 Hgb 14.0 Hct 42.8 MCV 85.9 MCH 28.1 MCHC 32.7 RDW 14.5 Plt Count 227 MPV 11.3 H Neut % (Auto) 80.4 Lymph % (Auto) 14.4 [place] % (Auto) 4.5 Eos % (Auto) 0.0 Baso % (Auto) 0.1 Neut # (Auto) 7.76 H Lymph # (Auto) 1.4 [place] # (Auto) 0.4 Eos # (Auto) 0.0 Baso # (Auto) 0.0 Nucleated RBC % (a uto) 0 Nucleated RBCs # 0.0 Sodium 140 Potassium 4.5 Chloride 104 Carbon Dioxide 24 Anion Gap 16.5 BUN 24 H Creatinine 0.9 GFR Calculation 84.7 L Glucose 121 H Calculated Osmolal ity 291 Calcium 8.5 Total Bilirubin 0.5 AST 26 ALT 21 Alkaline Phosphata se 73 Total Protein 6.2 L Albumin 3.3 L Globulin 2.9 Vitals: Last Vital Signs Temp 97.9 F 01/28/21 08:12 Pulse 54 L 01/28/21 09:02 Resp 16 01/28/21 09:02 BP 127/63 01/28/21 08:12 Pulse Ox 95 01/28/21 09:02 Discharge Plan Discharge Patient Disposition: Home Condition: Stable Prescriptions: New albuterol sulfate 90 mcg/actuation HFA aerosol inhaler 2 inh inhalation Q8H PRN (Reason: shortness of breath or wheezing) Qty: 8.5 RF: 1 Medrol (Danny) 4 mg tablets,dose pack See Rx Instructions .ROUTE .COMPLEX Qty: 21 RF: 0 Robitussin Long-Acting 1-7.5 mg/5 mL liquid 5 ml PO QID PRN (Reason: cough) Qty: 118 RF: 1 Continued multivitamin Tablet 1 tab PO QAM RF: 0 aspirin 81 mg Tablet,Delayed Release (Dr/Ec) 81 mg PO QAM RF: 0 Vitamin C 500 mg Tablet 500 mg PO DAILY RF: 0 zinc 50 mg Tablet 50 mg PO DAILY RF: 0 Vitamin D3 25 mcg (1,000 unit) Tablet 25 mcg PO DAILY RF: 0 turmeric 400 mg Capsule 400 mg PO DAILY RF: 0 Fish Oil 2 cap PO DAILY RF: 0 Vitamin B-12 1 tab PO DAILY RF: 0 garlic 2 tab PO DAILY RF: 0 Discharge Orders: Discharge Order (Routine); Ordered 01/28/21 Ordered By: Toñito Caldwell Other Ambulatory Orders: DME: Oxygen (Order) Location: None Selected Ordered By: Toñito Caldwell Referrals: Shadi Borja MD [Primary Care Provider] - 02/09/21 8:45 am Discharge Diet: Cardiac Discharge Activity: Increase activity as tolerated Patient Instructions: Albuterol (By breathing) (ProAir, AccuNeb, Proventil, Proventil..., Methylprednisolone (By mouth) (Medrol, Medrol Dosepak), COVID-19 (Coronavirus Disease 2019) (DC), Opioid Safety Discharge Attestations Time Spent in Discharge Care*: less than 30 min Quality Metrics Clinical Quality Measures During this hospital stay, did patient experience: None Coding Level of Care Code Acute g DC note Diagnoses Dry cough R05.8 Acute respiratory failure with hypoxia J96.01 COVID-19 determined by clinical diagnostic criteria U07.1
[2021-01-28] MEDS: zinc gluconate 50 mg Tablet PO (09:34)
[2021-01-28] MEDS: apixaban 5 mg Tablet 2.5 MG PO (09:34)
[2021-01-28] MEDS: cholecalciferol (vitamin D3) 1,000 unit Tablet 1000 UNIT PO (09:34)
[2021-01-28] MEDS: ascorbic acid 500 mg Tablet PO (09:34)
--- NOTE | 2021-01-28 14:13 | PC.NURSE ---
At approximately 1245, Patient was escorted out to the vehicle via wheelchair. Patient has all belongings including his three medications for [facility] pharmacy in a green bag. Patient has oxygen on at 4L via nasal cannula. He does not appear to be in acute distress. Denies any pain or sob at this time. Encouraged patient to take it easy and take frequent rests when completing chores and activities at home. IV was removed from right forearm prior to discharge. Minimal bleeding observed. Site held for five minutes. Educated patient on safety and how to use portable oxygen.
[2021-01-28 14:19] VITALS: BP 127/63; PULSE 54; RESP 16; TEMP 36.6; O2SAT 95
== END 2021-01-28 12:45 | disposition home or self-care (01) | DRG 177 ==
LOC: ER 13:49 → MEDSURG 18:13
PROVIDERS: Admitting Provider Internal Medicine; Emergency Provider Emergency Medicine; PCP Family Medicine; Visit Provider Internal Medicine
DX: U07.1 COVID-19 (principal); J96.01 Acute respiratory failure with hypoxia; E87.1 Hypo-osmolality and hyponatremia; Z99.81 Dependence on supplemental oxygen; I25.10 Atherosclerotic heart disease of native coronary artery without angina pectoris; Z95.5 Presence of coronary angioplasty implant and graft; Z79.82 Long term (current) use of aspirin
CPT/HCPCS: 36415; 36600; 71045; 71275; 80048; 80053; 82550; 82803; 83605; 83615; 83735; 83880; 84100; 84145; 84484; 85007; 85025; 85378; 86140; 86403; 87070; 87641; 93005; 93970; 94664; 96365; 96367; 96375; 99285; J0696; J1100; J3262; J3490; J7040; Q9967

== ENCOUNTER 2021-02-09 10:02 | Outpatient (CLI) | payer MEDICARE, SELFPAY ==
--- NOTE | 2021-02-09 | XR_ITS ---
WS: [id number] CHEST 2 VIEWS HISTORY: PNEUMONIA DUE TO COVID 19 COMPARISON: 01/24/2021 Lungs: Numerous scattered bilateral pulmonary opacifications without significant improvement since th e prior study. No lobar collapse. No pleural effusion or mediastinal air. Cardiac size: Normal. Mediastinum/Aorta: Normal mediastinum. Bones: Normal. XR/XR chest 2V* [id number] IMPRESSION: Moderate to severe bilateral pulmonary opacifications and pneumonia. No improve ment since 01/24/2021.
[2021-02-09 10:21] LABS: D Dimer 4.11 ug/mIFEU (0-0.59)
== END 2021-02-09 10:03 | disposition home or self-care (01) ==
LOC: RADOUTREAD 10:09
PROVIDERS: PCP Family Medicine; Visit Provider Family Medicine
DX: Z09 Encounter for follow-up examination after completed treatment for conditions other than malignant neoplasm (principal); U07.1 COVID-19; J12.82 Pneumonia due to coronavirus disease 2019
CPT/HCPCS: 85378

== ENCOUNTER 2021-02-10 14:00 | Outpatient (CLI) | payer MEDICARE, SELFPAY ==
--- NOTE | 2021-02-10 | CT_ITS ---
WS: [id number] CT CHEST ANGIOGRAPHY WITH REFORMATS HISTORY: ELEVATED D-DIMER, DYSPNEA, HX OF COVID TECHNIQUE: Contiguous axial images are obtained through the chest during arterial injection of intrav enous contrast. Images are reconstructed to evaluate the pulmonary arteries. MIP imaging also reviewe d. All CT scans at [facility] use at least one of these dose optimization techniques: automat ed exposure control; mA and/or kV adjustment per patient size (includes targeted exams where dose is matched to clinical indication); or iterative reconstruction. CONTRAST: Omnipaque 350; 95 mL IV. DLP: 909.18 mGycm COMPARISON: 01/25/2021 Excellent opacification of the pulmonary arteries. No filling defect or pulmonary emboli identified. There is extensive bilateral irregular shaped patchy opacifications throughout all lobes. The extent of the opacifications have improved although the density of the consolidations has increased. Consist ent with Covid 19 diagnosis. No pneumothorax or pleural effusions. Moderate enlargement of the LEFT h eart with no RIGHT heart strain. Mild atherosclerosis of aorta. Mediastinal and hilar lymphadenopathy is probably reactive. The largest lymph node is subcarinal with a maximum diameter of 2.7 cm. Additi onal significantly enlarged hilar and mediastinal lymph nodes. Hepatic steatosis. Cholelithiasis without acute cholecystitis. Mild hepatic steatosis. CT/CT angio chest PE protcl [id number] IMPRESSION: 1. No pulmonary embolism. 2. Continued bilateral extensive pulmonary opacifications from Covid 19. Mild improvement in the over all volume of consolidations. 3. Continued significant reactive lymphadenopathy. 4. Cholelithiasis.
== END 2021-02-10 14:01 | disposition home or self-care (01) ==
PROVIDERS: PCP Family Medicine; Visit Provider Family Medicine
DX: R79.89 Other specified abnormal findings of blood chemistry (principal); Z86.16 Personal history of COVID-19; R06.00 Dyspnea, unspecified; K80.20 Calculus of gallbladder without cholecystitis without obstruction; R59.1 Generalized enlarged lymph nodes
CPT/HCPCS: 71275; Q9967

== ENCOUNTER 2022-04-16 18:26 | Emergency (ER) | payer MEDICARE, SELFPAY ==
[2022-04-16 18:29] VITALS: BMI 39.2
[2022-04-16 18:31] VITALS: BP 149/90; PULSE 100; RESP 19; TEMP 37.2; O2SAT 90
--- NOTE | 2022-04-16 18:47 | W.ED.WEAKNES ---
HPI - Weakness General: Chief complaint: Weakness Stated complaint: WEAKNESS; HX OF GOUT Time Seen by Provider: 04/16/22 18:30 History of Present Illness: This 66-year-old male with a history of gout arthritis presents to the ER with worsening pain in both knees and both ankles making it difficult for him to stand on his feet or walk. Symptoms have been going on for few weeks now and about 3 weeks ago, patient was seen by his primary care physician who started him on colchicine and prednisone. However in the last 2 days, pain has progressively worsened patient now has difficulty ambulating. At baseline, he is able to get around without support. The last time he was able to do that was 2 days ago. He denies fever, nausea, vomiting or any new concerning symptoms. Review of Systems General: Reports: 10 or more systems reviewed and unremarkable except in HPI and below Musc: Reports: joint pain (Bilateral knee and bilateral ankle pain) and joint swelling (Bilateral ankle) PFSH ED PFSH: Medical History (Updated 04/16/22 @ 22:41 by David Engel MD) Acute respiratory failure with hypoxia Coronary artery disease History of 2 stents, does not use any medications other than aspirin COVID-19 determined by clinical diagnostic criteria History of malignant melanoma History of nonmelanoma skin cancer No pertinent past medical history Surgical History H/O hemorrhoidectomy History of appendectomy History of heart artery stent Hx laparoscopic cholecystectomy Family History Denies family history of Diabetes Clotting disorder Dementia Social History Smoking and tobacco status: never smoked History of recent travel: No Physical Exam Const: COMMON NORMALS: patient oriented x3, no limitations and alert OTHER: Moderate distress due to pain HENMT: COMMON NORMALS: normocephalic HEAD & SCALP: normocephalic Neck/C-Spine: COMMON NORMALS: full ROM and supple Chest: COMMONS NORMALS: normal inspection of the chest Resp: COMMON NORMALS: normal respiratory effort, No retractions, No use of accessory muscles and clear to auscultation bilaterally AUSCULTATION: clear to auscultation bilaterally Cardio: COMMON NORMALS: regular rate, regular rhythm and No murmurs present (Cardio) RATE: regular rate RHYTHM: regular rhythm GI: COMMON NORMALS: Normal to inspection, nondistended, normoactive bowel sounds present and non-tender : COMMON NORMALS: Yes no CVA tenderness BLADDER/KIDNEY EXAM: Yes no CVA tenderness Back/Pelvis: COMMON NORMALS: no CVA tenderness and no thoracic nor lumbar tenderness Extremity: GENERAL: Yes normal exam except as noted OTHER: Limited range of movement in both ankles and knees due to pain. Minimal swelling in both ankles. No erythema in the joints or sign of septic joint. No distal neurovascular deficit. Neuro: COMMON NORMALS: patient oriented x3 and no focal motor deficits SENSORIUM/ORIENTATION: Yes alert Psych: COMMON NORMALS: mental status grossly normal and cooperative Course Vital Signs: Vital signs: Vital Signs Temperature 98.9 F 04/16/22 18:31 Pulse Rate 83 04/16/22 21:23 Respiratory Rate 20 H 04/16/22 21:23 Blood Pressure 118/72 04/16/22 21:23 Pulse Oximetry 92 04/16/22 21:23 Oxygen Delivery Me thod 04/16/22 21:23 MDM - Weakness Medical Decision Making Medical decision making: Patient has worsening gout affecting both ankles and knees. After receiving pain medications, he felt considerably better. He will be discharged home with steroids and pain medication and was advised to take the colcichine he already has at home. He will follow-up with his primary care physician. Return instructions provided. Lab Data 04/16/22 19:00 04/16/22 19:00 Laboratory Results WBC 11.3 10^3/uL (4.0-10.0) H 04/16/22 19:00 RBC 5.17 10^6/uL (4.1-5.3) 04/16/22 19:00 Hgb 14.2 g/dL (11.7-16.6) 04/16/22 19:00 Hct 44.4 % (42.0-52.0) 04/16/22 19:00 MCV 85.9 fl (80-94) 04/16/22 19:00 MCH 27.5 pg (28.0-34.0) L 04/16/22 19:00 MCHC 32.0 g/dL (30.0-36.0) 04/16/22 19:00 RDW 13.4 % (12.1-15.1) 04/16/22 19:00 Plt Count 182 10^3/cmm (130-400) 04/16/22 19:00 MPV 10.3 fL (7.4-10.4) 04/16/22 19:00 Neut % (Auto) 81.2 % 04/16/22 19:00 Lymph % (Auto) 9.4 % 04/16/22 19:00 [place] % (Auto) 8.5 % 04/16/22 19:00 Eos % (Auto) 0.1 % 04/16/22 19:00 Baso % (Auto) 0.4 % 04/16/22 19:00 Neut # (Auto) 9.19 10^3/uL (1.8-7.7) H 04/16/22 19:00 Lymph # (Auto) 1.1 10^3/uL (0.8-4.8) 04/16/22 19:00 [place] # (Auto) 1.0 10^3/uL (0.2-0.9) H 04/16/22 19:00 Eos # (Auto) 0.0 10^3/uL (0.0-0.8) 04/16/22 19:00 Baso # (Auto) 0.0 10^3/uL (0.0-0.1) 04/16/22 19:00 Nucleated RBC % (auto) 0 % 04/16/22 19:00 Nucleated RBCs # 0.0 /100WBC 04/16/22 19:00 Sodium 134 mmol/L (136-145) L 04/16/22 19:00 Potassium 4.1 mmol/L (3.5-5.1) 04/16/22 19:00 Chloride 99 mmol/L (98-107) 04/16/22 19:00 Carbon Dioxide 24 mmol/L (22-29) 04/16/22 19:00 Anion Gap 15.1 (5-19) 04/16/22 19:00 BUN 13 mg/dL (8-23) 04/16/22 19:00 Creatinine 0.9 mg/dL (0.7-1.2) 04/16/22 19:00 GFR Calculation 84.4 mL/min (90-130) L 04/16/22 19:00 Glucose 117 mg/dL (65-115) H 04/16/22 19:00 Calculated Osmolality 279 mOsm/kg (285-295) L 04/16/22 19:00 Uric Acid 7.9 mg/dL (3.4-7.0) H 04/16/22 19:00 Calcium 9.2 mg/dL (8.5-10.5) 04/16/22 19:00 Total Bilirubin 0.7 mg/dL (0.15-1.2) 04/16/22 19:00 AST 8 U/L (0-40) 04/16/22 19:00 ALT 9 U/L (0-41) 04/16/22 19:00 Alkaline Phosphatase 69 U/L (40-130) 04/16/22 19:00 Total Protein 6.4 g/dL (6.6-8.7) L 04/16/22 19:00 Albumin 3.3 g/dL (3.5-5.2) L 04/16/22 19:00 Globulin 3.1 g/dL (1.3-4.6) 04/16/22 19:00 Discharge Plan Discharge Patient Disposition: Home Clinical Impression: Exacerbation of gout Condition: Stable Prescriptions: New prednisone 20 mg tablet 20 mg PO BID 5 Days Qty: 10 0RF hydrocodone-acetaminophen 5-325 mg tablet 1 tab PO Q6H PRN (Reason: pain) Qty: 20 0RF No Action multivitamin Tablet 1 tab PO QAM aspirin 81 mg Tablet,Delayed Release (Dr/Ec) 81 mg PO QAM Vitamin C 500 mg Tablet 500 mg PO DAILY zinc 50 mg Tablet 50 mg PO DAILY Vitamin D3 25 mcg (1,000 unit) Tablet 25 mcg PO DAILY turmeric 400 mg Capsule 400 mg PO DAILY Fish Oil 2 cap PO DAILY Vitamin B-12 1 tab PO DAILY garlic 2 tab PO DAILY Discharge Orders: Discharge ED (Routine); Ordered 04/16/22 Ordered By: David Engel Referrals: Shadi Borja MD [Primary Care Provider] - Discharge Diet: Usual diet Discharge Activity: Resume usual activity Patient Instructions: Opioid Safety, Pain Management Activity Restrictions/Additional Instructions: Continue taking Colchicine you already have. Take prednisone as prescribed. Take Wagoner as needed for pain. Follow-up with your primary care physician in 3 to 5 days for reevaluation. Return with new or worsening symptoms. Coding Level of Care Code ED Vest Front Presser for Chg Fwd Exam Comprehensive
[2022-04-16] MEDS: sodium chloride 0.9% 1,000 ML 999 ML IV (18:59)
[2022-04-16] MEDS: ketorolac 30 mg/mL INJ IVP (19:07)
[2022-04-16 19:11] LABS: Basophils % 0.4 %; Eosinophils % 0.1 %; Hematocrit 44.4 % (42.0-52.0); Hemoglobin 14.2 g/dL (11.7-16.6); Lymphocytes # 1.1 10^3/uL (0.8-4.8); Lymphocytes % 9.4 %; Mean Corpuscular Hemoglobin 27.5 pg (28.0-34.0); Mean Corpuscular Volume 85.9 fl (80-94); Mean Platelet Volume 10.3 fL (7.4-10.4); Monocytes % 8.5 %; Neutrophils # 9.19 10^3/uL (1.8-7.7); Neutrophils % 81.2 %; Nucleated Red Blood Cells % 0 %; Platelet Count 182 10^3/cmm (130-400); Red Blood Count 5.17 10^6/uL (4.1-5.3); Red Cell Distribution Width 13.4 % (12.1-15.1); White Blood Count 11.3 10^3/uL (4.0-10.0)
[2022-04-16 19:31] LABS: Alanine Aminotransferase 9 U/L (0-41); Albumin Level 3.3 g/dL (3.5-5.2); Alkaline Phosphatase 69 U/L (40-130); Chloride 99 mmol/L (98-107); Potassium 4.1 mmol/L (3.5-5.1); Sodium 134 mmol/L (136-145); Uric Acid 7.9 mg/dL (3.4-7.0)
[2022-04-16 19:50] LABS: Anion Gap 15.1 (5-19); Aspartate Amino Transferase 8 U/L (0-40); Blood Urea Nitrogen 13 mg/dL (8-23); Calcium 9.2 mg/dL (8.5-10.5); Carbon Dioxide 24 mmol/L (22-29); Globulin 3.1 g/dL (1.3-4.6); Glomerular Filtration Rate 84.4 mL/min (90-130); Glucose 117 mg/dL (65-115); Osmolality Calculated 279 mOsm/kg (285-295); Total Bilirubin 0.7 mg/dL (0.15-1.2); Total Protein 6.4 g/dL (6.6-8.7)
[2022-04-16 20:12] LABS: Slide Review Slide Review Perform
[2022-04-16 21:21] VITALS: RESP 20; O2SAT 92
[2022-04-16] MEDS: morphine 4 mg/mL SDV 1 mL IVP (21:21)
[2022-04-16 21:23] VITALS: BP 118/72; PULSE 83; RESP 20; O2SAT 92
[2022-04-16 23:46] VITALS: BP 115/76; PULSE 84; RESP 19; O2SAT 94
== END 2022-04-16 23:49 | disposition home or self-care (01) ==
PROVIDERS: Emergency Provider Family Medicine; PCP Family Medicine
DX: M10.9 Gout, unspecified (principal); Z79.82 Long term (current) use of aspirin; I25.10 Atherosclerotic heart disease of native coronary artery without angina pectoris
CPT/HCPCS: 80053; 84550; 85025; 96361; 96374; 96375; 99284; J1885; J2270; J2930; J7030

== ENCOUNTER 2022-04-21 02:28 | Inpatient (IN) | payer MEDICARE, SELFPAY ==
[2022-04-21] VITALS (11 sets, daily range): BP systolic 104–182; BP diastolic 66–97; PULSE 66–101; RESP 15–22; TEMP 36.4–36.9; O2SAT 93–97; BMI 39.2
--- NOTE | 2022-04-21 02:42 | ECG_ITS ---
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 Measurements Intervals [place] Rate: 74 P: 8 NC: 156 QRS: -14 QRSD: 117 T: -4 QT: 382 QTc: 426 Interpretive Statements SINUS RHYTHM WITH OCCASIONAL VENTRICULAR PREMATURE COMPLEXES POSSIBLE RIGHT VENTRICULAR CONDUCTION DELAY [RSR (QR) IN V1/V2] LATERAL MYOCARDIAL INFARCTION , OF INDETERMINATE AGE [40+ ms Q WAVE AND/OR ST/T ABNORMALITY IN I/aVL/V5/V6] INTERPRETATION BASED ON A DEFAULT AGE OF 40 YEARS Compared to ECG 01/24/2021 22:04:06 Ventricular premature complex(es) now present Myocardial infarct finding now present Sinus arrhythmia no longer present First degree AV block no longer present T-wave abnormality no longer present Electronically Signed On 04-21-2022 16:18:07 SENIOR WINDOWS SYSTEMS ADMINISTRATOR by Randy Reynolds M.D. [email or web address]
--- NOTE | 2022-04-21 02:42 | XRR_ITS ---
PROCEDURE INFORMATION: Exam: XR Chest Exam date and time: 04/21/2022 2:45 AM Age: 66 years old Clinical indication: Shortness of breath; Prior surgery; Surgery type: Coronary stent. Gb; Patient HX: C/O SOB; Additional info: Cp TECHNIQUE: Imaging protocol: Radiologic exam of the chest. Views: 1 view. COMPARISON: CR XR chest 2V* [id number] 06/29/2021 10:47 AM FINDINGS: Lungs: Mild COPD. Lung base atelectasis or scarring, [id number]. Pleural spaces: Unremarkable. No pleural effusion. No pneumothorax. Heart/Mediastinum: Heart is mildly enlarged. Bones/joints: Unremarkable. Soft tissues: Left axillary clips. XR/XR chest 1V portable [id number] IMPRESSION: Large heart with lung base scarring. No change from 06/29/2021.
--- NOTE | 2022-04-21 02:48 | ED_ITS ---
HPI - SOB/Dyspnea General: Chief Complaint: Shortness of Breath/Dyspnea Stated Complaint: SOB Time Seen by Provider: 04/21/22 02:32 Source: patient Mode of arrival: ambulatory Limitations: no limitations History of Present Illness: HPI Narrative: 66-year-old male who states that he has been feeling short of breath tonight. He denies any chest pain he states he just feels like he cannot get breath and that he had mild cough as well and a low-grade fever he states he is also having right knee pain with known gout he is being treated for that currently with hydrocodone and steroids. Associated symptoms: Reports extremity pain; Deny abdominal pain, chest pain, fever(s), nausea or vomiting Review of Systems Const: Denies: fever(s), chills, body aches or change in appetite Eyes: Denies: blurry vision or eye discomfort ENMT: Denies: throat pain or dental pain Card: Denies: chest pain Resp: Reports: dyspnea GI: Denies: abdominal pain, nausea, vomiting or diarrhea : Denies: dysuria Musc: Reports: extremity pain Skin/Breast: Denies: rash Neuro: Denies: headache(s) Psych: Denies: depression Arron/Lymph: Denies: easy bruising All/Imm: Denies: urticaria PFSH ED PFSH: Medical History (Updated 04/21/22 @ 04:33 by Gregorio Rodriguez MD) Acute respiratory failure with hypoxia Coronary artery disease History of 2 stents, does not use any medications other than aspirin COVID-19 determined by clinical diagnostic criteria History of malignant melanoma History of nonmelanoma skin cancer No pertinent past medical history Surgical History H/O hemorrhoidectomy History of appendectomy History of heart artery stent Hx laparoscopic cholecystectomy Family History Denies family history of Diabetes Clotting disorder Dementia Social History Smoking and tobacco status: never smoked History of recent travel: No Physical Exam Const: COMMON NORMALS: no acute distress, patient oriented x3 and healthy appearing HENMT: COMMON NORMALS: normocephalic and atraumatic HEAD & SCALP: normocephalic and atraumatic Eye: COMMON NORMALS: Equal, round and reactive pupils present and EOMs intact bilaterally PUPIL: Yes Equal, round and reactive pupils present Neck/C-Spine: COMMON NORMALS: full ROM and supple Chest: COMMONS NORMALS: normal inspection of the chest and normal palpation of entire chest wall Resp: COMMON NORMALS: normal respiratory effort, No retractions, No use of accessory muscles and clear to auscultation bilaterally AUSCULTATION: clear to auscultation bilaterally Cardio: COMMON NORMALS: regular rate, regular rhythm and No murmurs present (Cardio) RATE: regular rate RHYTHM: regular rhythm GI: COMMON NORMALS: Normal to inspection, nondistended, normoactive bowel sounds present, Soft to palpation, non-tender and no masses PALPATION: Yes Soft to palpation Extremity: COMMON NORMALS: normal to inspection and full ROM Neuro: COMMON NORMALS: patient oriented x3, moves all extremities and no focal motor deficits Psych: COMMON NORMALS: mental status grossly normal, Normal thought process present and cooperative THOUGHT PROCESS: Normal thought process present Skin: COMMON NORMALS: no rashes or lesions noted and no wounds GENERAL SKIN EXAM: no rashes or lesions noted Course Vital Signs: Vital signs: Vital Signs Temperature 97.5 F L 04/21/22 02:34 Pulse Rate 78 04/21/22 02:34 Respiratory Rate 22 H 04/21/22 02:34 Blood Pressure 165/94 04/21/22 02:34 Pulse Oximetry 97 04/21/22 02:34 Oxygen Delivery Me thod 04/21/22 02:34 MDM - SOB/Dyspnea Medical Decision Making Patient presents here with a pulmonary embolism no signs of right heart strain he is not requiring oxygen but he states he feels short of breath and does not feel comfortable going home we will give him Lovenox spoke to the hospitalist and will admit at this time. Lab Data 04/21/22 02:45 04/21/22 02:45 Labs/Radiology: Radiology Impressions Chest X-Ray 04/21/22 02:42 IMPRESSION: Large heart with lung base scarring. No change from 06/29/2021. Chest CTA 04/21/22 03:26 IMPRESSION: 1. At least mild burden bilateral PE with no strong evidence of RV strain or lung infarct. 2. Large heart with hazy areas of lung atelectasis or scarring with [id number] mediastinal and hilar lymphadenopathy. For these nodes, a six-month follow-up is reasonable. There is likely mild chronic CHF as well. 3. Multiple chronic findings above, including cholelithiasis. THIS REPORT CONTAINS FINDINGS THAT MAY BE CRITICAL TO PATIENT CARE. The findings were verbally communicated via telephone conference at 03:58 AM INSTALLATION DRAFTER on 04/21/[address] Rodriguez. The findings were acknowledged and understood. Laboratory Results WBC 9.9 10^3/uL (4.0-10.0) 04/21/22 02:45 RBC 5.47 10^6/uL (4.1-5.3) H 04/21/22 02:45 Hgb 15.0 g/dL (11.7-16.6) 04/21/22 02:45 Hct 46.3 % (42.0-52.0) 04/21/22 02:45 MCV 84.6 fl (80-94) 04/21/22 02:45 MCH 27.4 pg (28.0-34.0) L 04/21/22 02:45 MCHC 32.4 g/dL (30.0-36.0) 04/21/22 02:45 RDW 13.5 % (12.1-15.1) 04/21/22 02:45 Plt Count 210 10^3/cmm (130-400) 04/21/22 02:45 MPV 9.5 fL (7.4-10.4) 04/21/22 02:45 Neut % (Auto) 68.9 % 04/21/22 02:45 Lymph % (Auto) 22.6 % 04/21/22 02:45 [place] % (Auto) 6.0 % 04/21/22 02:45 Eos % (Auto) 0.8 % 04/21/22 02:45 Baso % (Auto) 0.3 % 04/21/22 02:45 Neut # (Auto) 6.80 10^3/uL (1.8-7.7) 04/21/22 02:45 Lymph # (Auto) 2.2 10^3/uL (0.8-4.8) 04/21/22 02:45 [place] # (Auto) 0.6 10^3/uL (0.2-0.9) 04/21/22 02:45 Eos # (Auto) 0.1 10^3/uL (0.0-0.8) 04/21/22 02:45 Baso # (Auto) 0.0 10^3/uL (0.0-0.1) 04/21/22 02:45 Nucleated RBC % (auto) 0 % 04/21/22 02:45 Nucleated RBCs # 0.0 /100WBC 04/21/22 02:45 PT 13.80 SECONDS (12.1-14.9) 04/21/22 02:45 INR 1.03 (0.8-1.2) 04/21/22 02:45 D-Dimer 6.37 ug/mIFEU (0-0.59) H 04/21/22 02:45 Sodium 137 mmol/L (136-145) 04/21/22 02:45 Potassium 4.6 mmol/L (3.5-5.1) 04/21/22 02:45 Chloride 97 mmol/L (98-107) L 04/21/22 02:45 Carbon Dioxide 26 mmol/L (22-29) 04/21/22 02:45 Anion Gap 18.6 (5-19) 04/21/22 02:45 BUN 17 mg/dL (8-23) 04/21/22 02:45 Creatinine 1.1 mg/dL (0.7-1.2) 04/21/22 02:45 GFR Calculation 67.0 mL/min (90-130) L 04/21/22 02:45 Glucose 90 mg/dL (65-115) 04/21/22 02:45 Calculated Osmolality 285 mOsm/kg (285-295) 04/21/22 02:45 Calcium 8.9 mg/dL (8.5-10.5) 04/21/22 02:45 Total Bilirubin 0.6 mg/dL (0.15-1.2) 04/21/22 02:45 AST 17 U/L (0-40) 04/21/22 02:45 ALT 28 U/L (0-41) 04/21/22 02:45 Alkaline Phosphatase 84 U/L (40-130) 04/21/22 02:45 Troponin T Baseline 22 ng/L (0-15) H 04/21/22 02:45 NT-Pro-B Natriuret Pep 1936 pg/mL (0-125) H 04/21/22 02:45 Total Protein 6.4 g/dL (6.6-8.7) L 04/21/22 02:45 Albumin 3.6 g/dL (3.5-5.2) 04/21/22 02:45 Globulin 2.8 g/dL (1.3-4.6) 04/21/22 02:45 Influenza Type A Ag negative (Negative) 04/21/22 02:45 Influenza Type B Ag negative (Negative) 04/21/22 02:45 SARS-CoV-2 Ag (Rapid) negative (Negative) 04/21/22 02:45 Discharge Plan Discharge Patient Disposition: Admitted As Inpatient Clinical Impression: Pulmonary embolism Condition: Stable Prescriptions: No Action multivitamin Tablet 1 tab PO QAM aspirin 81 mg Tablet,Delayed Release (Dr/Ec) 81 mg PO QAM Vitamin C 500 mg Tablet 500 mg PO DAILY zinc 50 mg Tablet 50 mg PO DAILY Vitamin D3 25 mcg (1,000 unit) Tablet 25 mcg PO DAILY turmeric 400 mg Capsule 400 mg PO DAILY Fish Oil 2 cap PO DAILY Vitamin B-12 1 tab PO DAILY garlic 2 tab PO DAILY hydrocodone-acetaminophen 5-325 mg tablet 1 tab PO Q6H PRN (Reason: pain) Qty: 20 0RF Referrals: Shadi Borja MD [Primary Care Provider] - Coding Level of Care Code ED Entry Engineer for Faustino Vann
[2022-04-21 02:51] LABS: Basophils % 0.3 %; Eosinophils # 0.1 10^3/uL (0.0-0.8); Eosinophils % 0.8 %; Hematocrit 46.3 % (42.0-52.0); Lymphocytes # 2.2 10^3/uL (0.8-4.8); Lymphocytes % 22.6 %; Mean Corpuscular HGB Conc 32.4 g/dL (30.0-36.0); Mean Corpuscular Hemoglobin 27.4 pg (28.0-34.0); Mean Corpuscular Volume 84.6 fl (80-94); Mean Platelet Volume 9.5 fL (7.4-10.4); Monocytes # 0.6 10^3/uL (0.2-0.9); Neutrophils % 68.9 %; Nucleated Red Blood Cells % 0 %; Platelet Count 210 10^3/cmm (130-400); Red Blood Count 5.47 10^6/uL (4.1-5.3); Red Cell Distribution Width 13.5 % (12.1-15.1); White Blood Count 9.9 10^3/uL (4.0-10.0)
[2022-04-21 03:08] LABS: Influenza A by IFA negative (Negative); Influenza B by IFA negative (Negative); SARS Covid-2 Antigen negative (Negative)
[2022-04-21 03:14] LABS: INR 1.03 (0.8-1.2)
[2022-04-21 03:24] LABS: D Dimer 6.37 ug/mIFEU (0-0.59)
--- NOTE | 2022-04-21 03:26 | CTR_ITS ---
PROCEDURE INFORMATION: Exam: CTA Chest With Contrast Exam date and time: 04/21/2022 3:35 AM Age: 66 years old Clinical indication: Abnormal findings; Abnormal diagnostic tests; Elevated d-dimer; Shortness of breath; Prior surgery; Surgery type: Coronary stent; Patient HX: SOB with tachycardia. Elevated d dimer. TECHNIQUE: Imaging protocol: Computed tomographic angiography of the chest with contrast. 3D rendering (Not supervised by radiologist): MIP and/or 3D reconstructed images were created by the technologist. Radiation optimization: All CT scans at this facility use at least one of these dose optimization techniques: automated exposure control; mA and/or kV adjustment per patient size (includes targeted exams where dose is matched to clinical indication); or iterative reconstruction. Contrast material: OMNI 350; Contrast volume: 86 ml; Contrast route: INTRAVENOUS (IV); Other protocol: This patient has received 0 known CTs and 0 known cardiac nuclear medicine studies in the 12 months prior to the current study. COMPARISON: CT angio chest PE prot [id number] 02/10/2021 2:18 PM RADIATION DOSE METRICS: Total DLP (mGy-cm): 566.81 FINDINGS: Pulmonary arteries: RUL lobar and segmental nonocclusive PE. Some lower RUL segmental occlusive PE on series 6, image 27. Small amount of JENNY segmental nonocclusive PE. Small amount of RLL segmental occlusive and nonocclusive PE. Aorta: Advanced diffuse vascular calcification noted. No aortic aneurysm. No aortic dissection. Veins: Udcr-uc-tmhvyhpj venous congestion. Lungs: Scattered areas of diffuse hazy atelectasis or scarring. This is most pronounced in the bilateral lung bases where there is some air trapping. Compared to 02/10/2021, the bilateral infiltrates have considerably improved. Pleural spaces: No pneumothorax. No pleural effusion noted. Heart: The heart is large. No pericardial effusion. Heart RV/LV ratio: The RV/LV ratio is normal at 0.7. Lymph nodes: Moderate bulky mediastinal lymphadenopathy. Mild bilateral hilar lymphadenopathy. Gallbladder and bile ducts: Partially assessed cholelithiasis. Bones/joints: Moderate spine DJD. Soft tissues: Unremarkable. Other findings: Partially assessed hepatosplenomegaly. Hepatic steatosis. Atrophic pancreas. CT/CT angio chest PE protcl [id number] IMPRESSION: 1. At least mild burden bilateral PE with no strong evidence of RV strain or lung infarct. 2. Large heart with hazy areas of lung atelectasis or scarring with avrl-xe-xvoryhae mediastinal and hilar lymphadenopathy. For these nodes, a six-month follow-up is reasonable. There is likely mild chronic CHF as well. 3. Multiple chronic findings above, including cholelithiasis. THIS REPORT CONTAINS FINDINGS THAT MAY BE CRITICAL TO PATIENT CARE. The findings were verbally communicated via telephone conference at 03:58 AM DRIVER'S EDUCATION INSTRUCTOR on 04/21/[address] Rodriguez. The findings were acknowledged and understood.
[2022-04-21 03:30] LABS: Troponin(5th) Baseline 22 ng/L (0-15)
[2022-04-21 03:32] LABS: Alanine Aminotransferase 28 U/L (0-41); Albumin Level 3.6 g/dL (3.5-5.2); Alkaline Phosphatase 84 U/L (40-130); Anion Gap 18.6 (5-19); Aspartate Amino Transferase 17 U/L (0-40); Blood Urea Nitrogen 17 mg/dL (8-23); Calcium 8.9 mg/dL (8.5-10.5); Carbon Dioxide 26 mmol/L (22-29); Chloride 97 mmol/L (98-107); Globulin 2.8 g/dL (1.3-4.6); Glucose 90 mg/dL (65-115); Osmolality Calculated 285 mOsm/kg (285-295); Potassium 4.6 mmol/L (3.5-5.1); Sodium 137 mmol/L (136-145); Total Bilirubin 0.6 mg/dL (0.15-1.2); Total Protein 6.4 g/dL (6.6-8.7)
[2022-04-21 03:37] LABS: NT Pro B Type Natriuretic Pept 1936 pg/mL (0-125)
[2022-04-21] MEDS: iohexol 350 mg/mL 500 mL Btl (per mL) IV (03:47)
--- NOTE | 2022-04-21 04:27 | ECG_ITS ---
[facility] Test Date: 2022-04-21 Pat Name: Darrell Shafer Department: Room: Gender: Male Rehabilitation Case Coordinator: : 1955 Requested By: Gregorio Rodriguez Order Number: [id number] Jony MD: Randy Reynolds M.D. Measurements Intervals [place] Rate: 67 P: 43 WI: 168 QRS: -6 QRSD: 106 T: 11 QT: 375 QTc: 397 Interpretive Statements SINUS RHYTHM WITH OCCASIONAL SUPRAVENTRICULAR PREMATURE COMPLEXES POSSIBLE LEFT ATRIAL ENLARGEMENT [-0.1mV P-WAVE IN V1/V2] POSSIBLE RIGHT VENTRICULAR CONDUCTION DELAY [RSR (QR) IN V1/V2] LATERAL MYOCARDIAL INFARCTION Compared to ECG 04/21/2022 02:45:16 Ventricular premature complex(es) no longer present Myocardial infarct finding still present Electronically Signed On 04-21-2022 16:22:26 SILVERSMITH APPRENTICE by Randy Reynolds M.D. [id number]
[2022-04-21] MEDS: enoxaparin 120 mg/0.8 mL Syringe 130 MG SUBCUT (04:28)
--- NOTE | 2022-04-21 04:38 | ECG_ITS ---
[facility] Test Date: 2022-04-21 Pat Name: Darrell Shafer Department: Room: 256 Gender: Male It Infrastructure Architect: : 1955 Requested By: Gregorio Rodriguez Order Number: [id number] Jony MD: Randy Reynolds M.D. Measurements Intervals [place] Rate: 71 P: 22 [place]: 183 QRS: -15 QRSD: 102 T: -19 QT: 359 QTc: 392 Interpretive Statements SINUS RHYTHM WITH OCCASIONAL SUPRAVENTRICULAR PREMATURE COMPLEXES POSSIBLE RIGHT VENTRICULAR CONDUCTION DELAY [RSR (QR) IN V1/V2] ANTERIOR MYOCARDIAL INFARCTION , OF INDETERMINATE AGE [40+ ms Q WAVE AND/OR ST/T ABNORMALITY IN V3/V4] Compared to ECG 04/21/2022 04:27:27 No significant changes Electronically Signed On 04-21-2022 16:22:34 BUILDING ATTENDANT by Randy Reynolds M.D. [id number]
[2022-04-21 05:20] LABS: Troponin 5 2HR 21.73 ng/L (0-15)
[2022-04-21 05:28] LABS: Troponin 5 2HR Delta -0.27 ABS# (0-10)
--- NOTE | 2022-04-21 06:02 | USCV_ITS ---
Darrell Shafer Age: 66 Gender: M : 1955 Exam Date: 04/21/2022 07:32 Ordering Phys: Shirley Fishman MD Technologist: JUAN DANIEL Exam Location: [facility] – [place], [place] Indication: pe BP: / HR: 69 Rhythm: Sinus Technical Quality: Adequate MEASUREMENTS (Male / Female) Normal Values 2D ECHO LV Diastolic Diameter PLAX 6.1 cm 4.2 - 5.9 / 3.9 - 5.3 cm LV Systolic Diameter PLAX 4.1 cm IVS Diastolic Thickness 0.7 cm 0.6 - 1.0 / 0.6 - 0.9 cm IVS Systolic Thickness 1.1 cm LVPW Diastolic Thickness 0.8 cm 0.6 - 1.0 / 0.6 - 0.9 cm LVPW Systolic Thickness 1.5 cm LVOT Diameter 2.5 cm LV Ejection Fraction 2D Teich 60.4 % LA Diameter 3.7 cm IVC Diameter 2.4 cm M-MODE Aortic Annulus Diameter 3.4 cm LA Ao Ratio MM 1.2 MV E Point Septal Separation 1.5 cm DOPPLER AV Peak Velocity 127.0 cm/s LVOT Peak Velocity 106.0 cm/s AV Area Cont Eq vti 3.8 cm squared AV Area Cont Eq pk 4.1 cm squared MV Area PHT 3.9 cm squared Mitral E to A Ratio 1.2 MV E' Velocity 50.0 cm/s Mitral E to MV E' Ratio 12.8 Mitral E to LV E' Lateral Ratio 9.7 Mitral E to LV E' Septal Ratio 19.0 TV Peak E Velocity 50.0 cm/s PV Peak Velocity 95.0 cm/s FINDINGS Left Ventricle The ventricle is not well seen. It is probably normal in size. In the apical view there appears to be some mild hypokinesis of the apex and lateral wall though this is not confirmed on other views. The overall ejection fraction is probably lower limit of normal may be 50%. Grade 1 diastolic dysfunction. Right Ventricle Normal right ventricular size and systolic function. Right Atrium Mildly increased right atrial size. Left Atrium Mildly increased left atrial size. Mitral Valve Mitral valve not well visualized. Trace mitral valve regurgitation. Aortic Valve Structurally normal aortic valve without significant sclerosis or stenosis. There is no aortic regurgitation. Tricuspid Valve Structurally normal tricuspid valve. Trace to mild tricuspid valve regurgitation. Pulmonic Valve Pulmonic valve not well visualized. Pericardium Normal pericardium without effusion. Aorta Normal ascending aorta dimension. IVC Inferior vena cava not visualized. CONCLUSIONS The ventricle is not well seen. It is probably normal in size. In the apical view there appears to be some mild hypokinesis of the apex and lateral wall though this is not confirmed on other views. The overall ejection fraction is probably lower limit of normal may be 50%. Grade 1 diastolic dysfunction. Mildly increased right atrial size. Mildly increased left atrial size. Mitral valve not well visualized. Trace mitral valve regurgitation. The previous study was done 04/01/[address] Randy Reynolds MD (Electronically Signed) Final Date: 21 April 2022 15:50 S
--- NOTE | 2022-04-21 06:04 | P.HP_ITS ---
Providers/Chief Complaint Admitting Physician: Shirley Fishman MD Primary Care Provider: Shadi Borja MD Chief Complaint: SOB History of Present Illness Darrell Shafer is a 66 year old male with a medical history significant for gout, most recently had an acute attack of gout 1 month ago involving multiple joints of the lower extremity including knees ankle and toes. He has been taking colchicine and prednisone and opiates at home with only partial relief. He has not been able to ambulate as a result of his gout attack. 2 days ago he started to experience sudden onset shortness of breath. With minimal movement within the home such as moving from bed into bedside chair or commode is causing him to be short of breath. He denies any chest pain palpitations or syncope. Presented to the emergency room with persistence of symptoms over the past 2 days. Denies any fevers or chills or cough. CT of his chest today found him to have a pulmonary embolism. He denies any past medical history of DVT or PE. Review of Systems General: Reports: 10 or more systems reviewed and unremarkable except in HPI and below Const: Denies: fever(s), chills or body aches Eyes: Denies: change in vision, blurry vision or photophobia ENMT: Reports: hoarseness; Denies: throat pain, enlarged tonsils, odynophagia or nasal congestion Card: Denies: chest pain, palpitations, irregular heart rhythm, edema, swelling of feet/ankles, lightheadedness, pre-syncope, dyspnea on exertion or orthopnea Resp: Denies: dyspnea, productive cough, non-productive cough, wheezing, stridor, pain on inspiration, change in phlegm color, hemoptysis or chest congestion GI: Denies: abdominal pain, nausea, vomiting, hematemesis, coffee ground chica sis, dysphagia, heartburn, diarrhea, constipation, GI cramping, change in stool character, hematochezia or melena : Denies: flank pain, dysuria, urinary frequency, urinary urgency, urinary hesitancy or hematuria Musc: Denies: neck pain, back pain, extremity pain, joint swelling, joint warmth or deformity Neuro: Denies: headache(s), numbness in extremities, weakness in extremities, sensory changes, difficulty walking, frequent falls, dizziness, vertigo, behavioral changes, Slurred speech present or seizure-like activity Psych: Denies: anxiety, depression, suicidal ideation or homicidal ideation Endo: Denies: polyuria, polydipsia, tired all the time, cold intolerance or hot flashes Arron/Lymph: Denies: easy bruising or easy bleeding Medications/Allergies Home Medications Medication Instructions Recorded Confirmed Last Taken Type Fish Oil 2 cap PO DAILY 01/24/21 05/17/21 Unknown History Vitamin B-12 1 tab PO DAILY 01/24/21 05/17/21 Unknown History ascorbic acid (vitamin C) 500 mg 500 mg PO DAILY 01/24/21 05/17/21 Unknown History tablet (Vitamin C) aspirin 81 mg tablet,delayed 81 mg PO QAM 01/24/21 05/17/21 Unknown History release cholecalciferol (vitamin D3) 25 25 mcg PO DAILY 01/24/21 05/17/21 Unknown History mcg (1,000 unit) tablet (Vitamin D3) garlic 2 tab PO DAILY 01/24/21 05/17/21 Unknown History multivitamin 1 tab PO QAM 01/24/21 05/17/21 Unknown History turmeric 400 mg capsule 400 mg PO DAILY 01/24/21 05/17/21 Unknown History zinc 50 mg tablet 50 mg PO DAILY 01/24/21 05/17/21 Unknown History hydrocodone 5 mg-acetaminophen 325 1 tab PO Q6H PRN pain #20 tabs 04/16/22 04/21/22 04/20/22 08:00 Rx mg tablet Allergies Allergy/AdvReac Type Severity Reaction Status Date / Time No Known Allergies Allergy Verified 04/21/22 02:37 PFSH Acute PFSH: Medical History Acute respiratory failure with hypoxia Coronary artery disease History of 2 stents, does not use any medications other than aspirin COVID-19 determined by clinical diagnostic criteria History of malignant melanoma History of nonmelanoma skin cancer No pertinent past medical history Surgical History H/O hemorrhoidectomy History of appendectomy History of heart artery stent Hx laparoscopic cholecystectomy Family History Denies family history of Diabetes Clotting disorder Dementia Social History Smoking and tobacco status: never smoked History of recent travel: No Vitals/I&O/Wt Last Vital Signs Temp 97.9 F 04/21/22 05:18 Pulse 78 04/21/22 05:18 Resp 20 H 04/21/22 05:18 BP 127/73 04/21/22 05:18 Pulse Ox 96 04/21/22 05:18 O2 Del Method 04/21/22 05:18 Weight last 48 hrs Weight 131.088 kg Physical Exam Narrative: General: No acute distress, AO x3 HEENT: PERRLA, pupils bilaterally equal and reactive, pallors not present Chest: Normal vesicular breath sounds, no added sounds, equal good air entry bilaterally CVS: S1-S2 regular, no murmurs, no tachycardia, no gallops, no rubs Abdomen: Soft, nontender, no organomegaly, bowel sounds present Neuro: No focal deficits, no facial deformity, AO x3, power 5/5 in all limbs Data 04/21/22 02:45 04/21/22 02:45 Other Labs: Radiology Impressions Chest X-Ray 04/21/22 02:42 IMPRESSION: Large heart with lung base scarring. No change from 06/29/2021. Chest CTA 04/21/22 03:26 IMPRESSION: 1. At least mild burden bilateral PE with no strong evidence of RV strain or lung infarct. 2. Large heart with hazy areas of lung atelectasis or scarring with [id number] mediastinal and hilar lymphadenopathy. For these nodes, a six-month follow-up is reasonable. There is likely mild chronic CHF as well. 3. Multiple chronic findings above, including cholelithiasis. THIS REPORT CONTAINS FINDINGS THAT MAY BE CRITICAL TO PATIENT CARE. The findings were verbally communicated via telephone conference at 03:58 AM LEAD SECTION SUPERVISOR on 04/21/[address] Rodriguez. The findings were acknowledged and understood. Laboratory Results WBC 9.9 10^3/uL (4.0-10.0) 04/21/22 02:45 RBC 5.47 10^6/uL (4.1-5.3) H 04/21/22 02:45 Hgb 15.0 g/dL (11.7-16.6) 04/21/22 02:45 Hct 46.3 % (42.0-52.0) 04/21/22 02:45 MCV 84.6 fl (80-94) 04/21/22 02:45 MCH 27.4 pg (28.0-34.0) L 04/21/22 02:45 MCHC 32.4 g/dL (30.0-36.0) 04/21/22 02:45 RDW 13.5 % (12.1-15.1) 04/21/22 02:45 Plt Count 210 10^3/cmm (130-400) 04/21/22 02:45 MPV 9.5 fL (7.4-10.4) 04/21/22 02:45 Neut % (Auto) 68.9 % 04/21/22 02:45 Lymph % (Auto) 22.6 % 04/21/22 02:45 [place] % (Auto) 6.0 % 04/21/22 02:45 Eos % (Auto) 0.8 % 04/21/22 02:45 Baso % (Auto) 0.3 % 04/21/22 02:45 Neut # (Auto) 6.80 10^3/uL (1.8-7.7) 04/21/22 02:45 Lymph # (Auto) 2.2 10^3/uL (0.8-4.8) 04/21/22 02:45 [place]ander # (Auto) 0.6 10^3/uL (0.2-0.9) 04/21/22 02:45 Eos # (Auto) 0.1 10^3/uL (0.0-0.8) 04/21/22 02:45 Baso # (Auto) 0.0 10^3/uL (0.0-0.1) 04/21/22 02:45 Nucleated RBC % (auto) 0 % 04/21/22 02:45 Nucleated RBCs # 0.0 /100WBC 04/21/22 02:45 PT 13.80 SECONDS (12.1-14.9) 04/21/22 02:45 INR 1.03 (0.8-1.2) 04/21/22 02:45 D-Dimer 6.37 ug/mIFEU (0-0.59) H 04/21/22 02:45 Sodium 137 mmol/L (136-145) 04/21/22 02:45 Potassium 4.6 mmol/L (3.5-5.1) 04/21/22 02:45 Chloride 97 mmol/L (98-107) L 04/21/22 02:45 Carbon Dioxide 26 mmol/L (22-29) 04/21/22 02:45 Anion Gap 18.6 (5-19) 04/21/22 02:45 BUN 17 mg/dL (8-23) 04/21/22 02:45 Creatinine 1.1 mg/dL (0.7-1.2) 04/21/22 02:45 GFR Calculation 67.0 mL/min (90-130) L 04/21/22 02:45 Glucose 90 mg/dL (65-115) 04/21/22 02:45 Calculated Osmolality 285 mOsm/kg (285-295) 04/21/22 02:45 Calcium 8.9 mg/dL (8.5-10.5) 04/21/22 02:45 Total Bilirubin 0.6 mg/dL (0.15-1.2) 04/21/22 02:45 AST 17 U/L (0-40) 04/21/22 02:45 ALT 28 U/L (0-41) 04/21/22 02:45 Alkaline Phosphatase 84 U/L (40-130) 04/21/22 02:45 Troponin T Baseline 22 ng/L (0-15) H 04/21/22 02:45 Troponin T 120 Minute 21.73 ng/L (0-15) H 04/21/22 05:00 Delta Troponin T -0.27 ABS# (0-10) L 04/21/22 05:00 NT-Pro-B Natriuret Pep 1936 pg/mL (0-125) H 04/21/22 02:45 Total Protein 6.4 g/dL (6.6-8.7) L 04/21/22 02:45 Albumin 3.6 g/dL (3.5-5.2) 04/21/22 02:45 Globulin 2.8 g/dL (1.3-4.6) 04/21/22 02:45 Influenza Type A Ag negative (Negative) 04/21/22 02:45 Influenza Type B Ag negative (Negative) 04/21/22 02:45 SARS-CoV-2 Ag (Rapid) negative (Negative) 04/21/22 02:45 A&P Assessment and plan (1) Pulmonary embolism: mild burden bilateral PE Suspect this may be a provoked episode related to additional DVT in the lower extremities considering that patient states he has been essentially nonambulatory over the past month due to an acute gout flare. We will obtain lower extremity duplex Start anticoagulation with Lovenox 1 mg/kg subcutaneously every 12 hours. Patient is currently saturating 94% on room air. He is able to complete sentences. Echocardiogram to assess for right heart strain (2) Exacerbation of gout: Gout exacerbation over the past month for which patient has been taking colchicine and prednisone along with opiates at home. We will continue prednisone and opiates while he is here in the hospital. Patient has been referred to orthopedics by his primary care provider to consider arthroscopy for symptomatic relief. Attestations Medical Necessity Statement*: > 2 midnight admission anticipated for above defined care Coding Level of Care Code Acute Code for Chg Fwd Moderate MDM includes number and complexity of problems actively addressed during encounter, amount and/or complexity of data reviewed/ordered and described risk of complication, morbidity or mortality of management as documented Diagnoses Pulmonary embolism I26.99 Exacerbation of gout M10.9
--- NOTE | 2022-04-21 06:43 | USCV_ITS ---
Darrell Shafer Age: 66 Gender: M : 1955 Exam Date: 04/21/2022 07:57 Ordering Phys: Shirley Fishman MD Technologist: JUAN DANIEL Exam Location: [facility] [place] Indication: pe HISTORY: PE PROCEDURES: Venous duplex imaging was performed in bilateral lower extremities. CONCLUSIONS No evidence of right lower extremity DVT. No evidence of left lower extremity DVT. Frandy Gallegos MD (Electronically Signed) Final Date: 21 April 2022 12:27 S
[2022-04-21] MEDS: pantoprazole DR 40 mg Tablet PO (08:37)
[2022-04-21] MEDS: predniSONE 20 mg Tablet 40 MG PO (08:42)
[2022-04-21] MEDS: HYDROcodone-acetaminophen 5-325 mg Tablet 1 TAB PO ×3 (08:43→23:40)
[2022-04-21 09:33] LABS: Troponin 5 6HR 21.33 ng/L (0-15)
[2022-04-21 09:34] LABS: Troponin 5 6HR Delta -0.67 ng/L (0-12)
--- NOTE | 2022-04-21 10:30 | PM.PN ---
Subjective Subjective: Patient is still experiencing pain in the joints Currently on room air Awake and alert Chest pain-free Vitals/I&O/Wt Last Vital Signs Temp 98.5 F 04/21/22 08:00 Pulse 66 04/21/22 08:00 Resp 16 04/21/22 08:00 BP 141/85 04/21/22 08:00 Pulse Ox 94 04/21/22 08:00 O2 Del Method 04/21/22 08:00 04/20/22 04/21/22 04/21/22 22:59 06:59 14:59 Output Total 525 / 525 Balance -525 / -525 Weight last 48 hrs Weight 131.088 kg Physical Exam Narrative: Fatigued and lethargic Awake and alert GCS 15 S1, S2 Doing well on room air Abdomen soft Pleasant and cooperative Appears stated age Euvolemic no Active signs of septic joint Data 04/21/22 02:45 04/21/22 02:45 A&P Assessment and plan (1) Exacerbation of gout: (2) Pulmonary embolism: (3) History of malignant melanoma: Plan Provoked pulmonary embolism We will give him Eliquis therapeutic dose at the time of discharge Currently chest pain-free No active bleed or oxygen supplementation We will follow-up with echo report No significant troponin delta High BNP noted Blood pressure is stable Exacerbation of gout Continue colchicine Patient is on prednisone taper at home which I would continue for now We will give him 1 dose of ketorolac Hypertension: Adjust antihypertensive regimen Full code Cardiac diet DVT prophylaxis covered with therapeutic anticoagulating agent Labs reviewed, high D-dimer, normal kidney function, CTA showing pulmonary embolism, test results explained to the patient Attestations Medical Necessity Statement*: Discharge tomorrow Coding Level of Care Code Acute Code for Chg Fwd Diagnoses Exacerbation of gout M10.9 Pulmonary embolism I26.99 History of malignant melanoma Z85.820
--- NOTE | 2022-04-21 11:16 | PC.CHAP ---
Pastoral Care Encounter/Spiritual Assessment Type of Contact [] Declined braiding operator visit [] Patient/Family/Request visit [] Outpatient visit [] Follow-up visit [] Physician referral [] Code/Alert [x] Routine visit [] Staff referral [] Actively dying [] Patient sleeping [x] Family support [] [] Out of room [] Palliative care [] [] Receiving care in room [] Pre-surgical visit [] Trauma [] Long length of stay [] ICU visit [] Other: Relational/Emotional Strength [x] Patient feels connected with others/family/visitors/staff [] Distress [] Loneliness/isolation [] Abandonment Spirituality of Patient [] Person of Bethany [] Attends Presybeterian of their [place] [] Believes in Prayer [] Reads Bible or Oriental Orthodox materials [] There are Spiritual issues to be addressed Radiologic Technologist Mammogram Interventions [x] Prayer [] Active listening [] Non-anxious presence [] Spiritual/emotional support [] Crisis/trauma care [] Spiritual counseling [] Bereavement support [] Provided bereavement packet [x] Provided Bible/devotional materials [] Provided toy/stuffed animal, coloring book to patient or family member [] Provided Communion [] Anointing/[place] [] Salvation [x] Completed spiritual assessment [] Other: Impact on Illness or Injury [] Angry [] Fearful [] Anxious [] Often cries [] Exhaustion [] Unable to work [] Unable to attend oriental orthodox [] Unable to walk/stand [] Unable to read [] Unable to drive [] Unable to eat/drink [] Unable to sleep [] Unable to be with family [] Patient intubated [] Other: Summary Time spent with patient 10min
[2022-04-21] MEDS: enoxaparin 150 mg/mL Syringe 130 MG SUBCUT (16:05)
[2022-04-22 03:32] VITALS: BP 144/83; PULSE 68; RESP 19; TEMP 36.9; O2SAT 95
[2022-04-22] MEDS: enoxaparin 150 mg/mL Syringe 130 MG SUBCUT (04:20)
[2022-04-22 05:11] VITALS: PULSE 64
[2022-04-22 08:00] VITALS: BP 148/85; PULSE 66; RESP 16; TEMP 36.5; O2SAT 94
[2022-04-22] MEDS: predniSONE 20 mg Tablet 40 MG PO (09:10)
[2022-04-22] MEDS: pantoprazole DR 40 mg Tablet PO (09:10)
[2022-04-22] MEDS: HYDROcodone-acetaminophen 5-325 mg Tablet 1 TAB PO (09:13)
--- NOTE | 2022-04-22 10:13 | P.DS_ITS ---
Discharge Providers Date of Admission: 04/21/22 04:21 Date of Discharge: April 22, 2022 Attending Provider at Admission: Shirley Fishman MD Attending Provider at Discharge: Toñito Caldwell MD Primary Care Provider: Shadi Borja MD Diagnoses at Discharge Discharge Diagnosis (1) Exacerbation of gout: Status: Acute (2) Pulmonary embolism: Status: Acute (3) History of malignant melanoma: Status: Acute Reason for Visit Reason for Visit: SOB Hospital Course Hospital Course 66-year-old male who was admitted for management of acute pulmonary embolism. Patient has not been very active because of flareup of gout. During hospitalization he responded very well to ketorolac, joint pains improved, he remained hemodynamically stable, no sign of right heart strain, echo did not show right ventricular strain, no significant delta troponin, EKG without signs of ischemia or infarction, patient will be discharged home on Eliquis therapeutic dose, he has been instructed to take Eliquis for at least 6 to 9 months, after repeat scans his PCP will decide on anticoagulating agent duration. Physical Exam Narrative: Awake and alert Nonfocal neuro exam Euvolemic S1, S2 Doing well on room air No active signs of septic joint Discharge Data Studies Completed and Pending Completed Studies During Hospitalization Category Date Time Status CTA chest [CT angio chest PE protcl [id number]] Stat Cat Scan 04/21/22 03:26 Completed XR chest 1V portable [id number] Stat Exams 04/21/22 02:42 [place] [id number] Routine Ultrasound 04/21/22 06:43 Completed CV. echo complete* [id number] Routine Ultrasound 04/21/22 06:02 Completed Radiology Impressions Chest X-Ray 04/21/22 02:42 IMPRESSION: Large heart with lung base scarring. No change from 06/29/2021. Chest CTA 04/21/22 03:26 IMPRESSION: 1. At least mild burden bilateral PE with no strong evidence of RV strain or lung infarct. 2. Large heart with hazy areas of lung atelectasis or scarring with [id number] mediastinal and hilar lymphadenopathy. For these nodes, a six-month follow-up is reasonable. There is likely mild chronic CHF as well. 3. Multiple chronic findings above, including cholelithiasis. THIS REPORT CONTAINS FINDINGS THAT MAY BE CRITICAL TO PATIENT CARE. The findings were verbally communicated via telephone conference at 03:58 AM CEMENT DESPATCH OPERATOR on 04/21/[address] Rodriguez. The findings were acknowledged and understood. Laboratory Results WBC 9.9 10^3/uL (4.0-10.0) 04/21/22 02:45 RBC 5.47 10^6/uL (4.1-5.3) H 04/21/22 02:45 Hgb 15.0 g/dL (11.7-16.6) 04/21/22 02:45 Hct 46.3 % (42.0-52.0) 04/21/22 02:45 MCV 84.6 fl (80-94) 04/21/22 02:45 MCH 27.4 pg (28.0-34.0) L 04/21/22 02:45 MCHC 32.4 g/dL (30.0-36.0) 04/21/22 02:45 RDW 13.5 % (12.1-15.1) 04/21/22 02:45 Plt Count 210 10^3/cmm (130-400) 04/21/22 02:45 MPV 9.5 fL (7.4-10.4) 04/21/22 02:45 Neut % (Auto) 68.9 % 04/21/22 02:45 Lymph % (Auto) 22.6 % 04/21/22 02:45 [place] % (Auto) 6.0 % 04/21/22 02:45 Eos % (Auto) 0.8 % 04/21/22 02:45 Baso % (Auto) 0.3 % 04/21/22 02:45 Neut # (Auto) 6.80 10^3/uL (1.8-7.7) 04/21/22 02:45 Lymph # (Auto) 2.2 10^3/uL (0.8-4.8) 04/21/22 02:45 [place] # (Auto) 0.6 10^3/uL (0.2-0.9) 04/21/22 02:45 Eos # (Auto) 0.1 10^3/uL (0.0-0.8) 04/21/22 02:45 Baso # (Auto) 0.0 10^3/uL (0.0-0.1) 04/21/22 02:45 Nucleated RBC % (auto) 0 % 04/21/22 02:45 Nucleated RBCs # 0.0 /100WBC 04/21/22 02:45 PT 13.80 SECONDS (12.1-14.9) 04/21/22 02:45 INR 1.03 (0.8-1.2) 04/21/22 02:45 D-Dimer 6.37 ug/mIFEU (0-0.59) H 04/21/22 02:45 Sodium 137 mmol/L (136-145) 04/21/22 02:45 Potassium 4.6 mmol/L (3.5-5.1) 04/21/22 02:45 Chloride 97 mmol/L (98-107) L 04/21/22 02:45 Carbon Dioxide 26 mmol/L (22-29) 04/21/22 02:45 Anion Gap 18.6 (5-19) 04/21/22 02:45 BUN 17 mg/dL (8-23) 04/21/22 02:45 Creatinine 1.1 mg/dL (0.7-1.2) 04/21/22 02:45 GFR Calculation 67.0 mL/min (90-130) L 04/21/22 02:45 Glucose 90 mg/dL (65-115) 04/21/22 02:45 Calculated Osmolality 285 mOsm/kg (285-295) 04/21/22 02:45 Calcium 8.9 mg/dL (8.5-10.5) 04/21/22 02:45 Total Bilirubin 0.6 mg/dL (0.15-1.2) 04/21/22 02:45 AST 17 U/L (0-40) 04/21/22 02:45 ALT 28 U/L (0-41) 04/21/22 02:45 Alkaline Phosphatase 84 U/L (40-130) 04/21/22 02:45 Troponin T Baseline 22 ng/L (0-15) H 04/21/22 02:45 Troponin T 120 Minute 21.73 ng/L (0-15) H 04/21/22 05:00 Delta Troponin T -0.27 ABS# (0-10) L 04/21/22 05:00 Troponin T Hi Sens 6Hr 21.33 ng/L (0-15) H 04/21/22 09:00 Troponin T Hi Sens 6Hr Delta -0.67 ng/L (0-12) L 04/21/22 09:00 NT-Pro-B Natriuret Pep 1936 pg/mL (0-125) H 04/21/22 02:45 Total Protein 6.4 g/dL (6.6-8.7) L 04/21/22 02:45 Albumin 3.6 g/dL (3.5-5.2) 04/21/22 02:45 Globulin 2.8 g/dL (1.3-4.6) 04/21/22 02:45 Influenza Type A Ag negative (Negative) 04/21/22 02:45 Influenza Type B Ag negative (Negative) 04/21/22 02:45 SARS-CoV-2 Ag (Rapid) negative (Negative) 04/21/22 02:45 Vitals Last Vital Signs Temp 97.7 F 04/22/22 08:00 Pulse 66 04/22/22 08:00 Resp 16 04/22/22 08:00 BP 148/85 04/22/22 08:00 Pulse Ox 94 04/22/22 08:00 O2 Del Method 04/22/22 08:00 Discharge Plan Discharge Patient Disposition: Home Condition: Stable Prescriptions: New Eliquis DVT-PE Treat 30D Start 5 mg (74 tabs) tablets,dose pack See Rx Instructions .ROUTE .COMPLEX Qty: 74 0RF Rx Instructions: orally per package directions Eliquis 5 mg tablet 5 mg PO BID Qty: 60 6RF Rx Instructions: after finish initial dvt oral pack take 5 mg bid for 6-9 months Continued hydrocodone-acetaminophen 5-325 mg tablet 1 tab PO Q6H PRN (Reason: pain) Qty: 20 0RF prednisone 20 mg tablet 20 mg PO BID Discharge Orders: Discharge Order (Routine); Ordered 04/22/22 Ordered By: Toñito Caldwell Referrals: Shadi Borja MD [Primary Care Provider] - Patient Instructions: Opioid Safety Discharge Attestations Time Spent in Discharge Care*: less than 30 min Quality Metrics Clinical Quality Measures [ No reported AMI, CVA or VTE this stay] Coding Level of Care Code Acute Code for Chg Fwd Diagnoses Exacerbation of gout M10.9 Pulmonary embolism I26.99 History of malignant melanoma Z85.820
[2022-04-22 12:00] VITALS: BP 139/87; PULSE 65; RESP 15; O2SAT 92
[2022-04-22 13:39] VITALS: BP 139/87; PULSE 65; RESP 15; TEMP 36.5; O2SAT 92
--- NOTE | 2022-04-22 13:41 | PC.NURSE ---
1230 discharge instructions given to patient and grandson. Both voiced understanding, questions answered. 1330 patient given coupon from Pharmacy for Eliquis. Discharged to home with family, patient in stable condition, taken to private car per wheel chair. Patient in stable condition
== END 2022-04-22 13:30 | disposition home or self-care (01) | DRG 176 ==
LOC: ER 04:33 → MEDSURG 04:37
PROVIDERS: Admitting Provider Student in an Organized Health Care Education/Training Program; Emergency Provider Emergency Medicine; PCP Family Medicine; Visit Provider Internal Medicine
DX: I26.99 Other pulmonary embolism without acute cor pulmonale (principal); M10.9 Gout, unspecified; Z79.891 Long term (current) use of opiate analgesic; Z79.52 Long term (current) use of systemic steroids; Z85.820 Personal history of malignant melanoma of skin; I25.10 Atherosclerotic heart disease of native coronary artery without angina pectoris; Z95.5 Presence of coronary angioplasty implant and graft; I10 Essential (primary) hypertension
CPT/HCPCS: 36415; 71045; 71275; 80053; 83880; 84484; 85025; 85378; 85610; 87426; 87804; 93005; 93306; 93970; 96372; 99285; J1650; J7512; Q9967

== ENCOUNTER → 2022-04-26 10:30 | Outpatient (BNVA) | payer MEDICARE, SELFPAY | PROVIDERS: PCP Family Medicine; Referring Provider Family Medicine; Visit Provider Orthopaedic Surgery | DX: M17.0 Bilateral primary osteoarthritis of knee (principal); M10.9 Gout, unspecified | CPT/HCPCS: 73560; 73565; 99203 ==

== ENCOUNTER 2022-06-23 10:13 | Emergency (ER) | payer MEDICARE, SELFPAY ==
--- NOTE | 2022-06-23 10:23 | CT_ITS ---
WS: [id number] CT HEAD TECHNIQUE: Noncontrast and contrast-enhanced CT of the head. CLINICAL INFORMATION: R sided weakness, L brain mass COMPARISON: 2010 DLP: [address] scans at [facility] use at least one of these dose optimization techniques: automated e xposure control; mA and/or kV adjustment per patient size (includes targeted exams where dose is matc hed to clinical indication); or iterative reconstruction. FINDINGS: Enhancing lesion in the LEFT frontal parietal junction measuring 1.8 x 1.4 CM. Moderate surrounding e luca. Moderate localized mass effect on the LEFT frontal horn and LEFT lateral ventricle. No signific ant midline shift. Additional smaller enhancing lesion today RIGHT posterior parietal lobe measuring 0.65cm with a smal l amount of surrounding edema. No other visualized enhancing lesions. No hydrocephalus. Mild small ve ssel changes with mild to moderate parenchymal volume loss. Mild mucosal thickening in the paranasal sinuses. Mastoid air cells well aerated. Vascular calcification. IMPRESSION: 1. 1.8 x 1.4 cm enhancing LEFT frontal parietal intraparenchymal lesion near the vertex with moderat e surrounding edema. Localized mass effect LEFT frontal horn and LEFT lateral ventricle. No significa nt midline shift. No hydrocephalus. 2. Additional smaller enhancing lesion RIGHT parietal lobe measuring 0.65cm with a small amount surr ounding edema. 3. No other visualized enhancing lesions. Findings suspicious for metastatic disease. MRI without an d with gadolinium would be more sensitive in further evaluation of additional lesions. 4. Lesions demonstrate a small amount of increased attenuation on the precontrast imaging due to pritesh cification or small amount of petechial hemorrhage Notified Tom Jeter DO at 06/23/2022 10:41 AM.
--- NOTE | 2022-06-23 10:24 | ED_ITS ---
HPI - Neuro Symptoms/Deficit General: Chief Complaint: Neuro Symptoms/Deficit Stated Complaint: possible stroke Time Seen by Provider: 06/23/22 10:20 Source: patient Mode of arrival: ambulatory History of Present Illness: 66-year-old male presents emergency room as a stroke alert. Around 9:00 this morning he was tying his shoes noticed some right arm weakness like sitting his chair and also began to notice some right leg weakness he denies difficulty speech swallowing or vision the arm and leg weakness have persisted. He is usually on Eliquis. No recent falls or trauma no previous stroke. He was diagnosed approximately 2 months ago with a PE and started on the Eliquis. Onset (ago): minute(s) Timing confirmed by: spouse Severity: moderate Quality: weak Relieving factors: none Exacerbating factors: none Associated symptoms: Deny chest pain, cough, diaphoresis, fevers/chills, headache(s), anorexia, malaise, nausea, seizures, short of breath, syncope, tingling, vertigo, vomiting or weakness Review of Systems Const: Denies: fever(s), chills, fatigue, malaise or diaphoresis ENMT: Denies: throat pain, ear or mastoid pain, nasal discharge or nasal congestion Card: Denies: chest pain or syncope Resp: Denies: dyspnea, productive cough or non-productive cough GI: Denies: nausea or vomiting : Denies: flank pain, dysuria, urinary frequency or urinary urgency Skin/Breast: Denies: rash or pruritus Neuro: Denies: headache(s) or vertigo PFSH ED PFSH: Medical History Acute respiratory failure with hypoxia Coronary artery disease History of 2 stents, does not use any medications other than aspirin COVID-19 determined by clinical diagnostic criteria Exacerbation of gout History of malignant melanoma History of nonmelanoma skin cancer No pertinent past medical history Pulmonary embolism Surgical History H/O hemorrhoidectomy History of appendectomy History of heart artery stent Hx laparoscopic cholecystectomy Family History Mother Malignant melanoma Denies family history of Diabetes Clotting disorder Dementia Social History Smoking and tobacco status: never smoked NIH stroke score NIHSS: Level Of Consciousness - 1a: 0 Level Of Consciousness Questions - 1b: Both Correct Level Of Consciousness Commands - 1c: Both Correct Best Gaze - 2: Normal Visual Bridges - 3: No Visual Loss Facial Palsy - 4: Normal Motor Arm Right - 5: Drift Motor Arm Left - 5: No Drift Motor Leg Right - 6: Drift Motor Leg Left - 6: No Drift Limb Ataxia - 7: Present In Two Limbs Sensory - 8: Mild To Moderate Loss Best Language - 9: No Aphasia Dysarthia - 10: Normal Extinction And Inattention - 11: 0 Score: Total Score: 5 Physical Exam Const: GENERAL APPEARANCE: cooperative and comfortable ORIENTATION/CONSCIOUSNESS: Yes awake, Yes oriented to person, Yes oriented to place and Yes oriented to time HENMT: COMMON NORMALS: normocephalic, atraumatic and hearing grossly normal bilaterally HEAD & SCALP: normocephalic and atraumatic Resp: COMMON NORMALS: normal respiratory effort, No retractions, No use of accessory muscles and clear to auscultation bilaterally AUSCULTATION: clear to auscultation bilaterally Cardio: COMMON NORMALS: regular rate, regular rhythm and No murmurs present (Cardio) RATE: regular rate RHYTHM: regular rhythm GI: COMMON NORMALS: Soft to palpation and No hepatosplenomegaly present AUSCULTATION: Yes normoactive bowel sounds PALPATION: Yes Soft to palpation, No Tenderness to palpation present (GI), No Guarding due to palpation present (GI) and Yes No hepatosplenomegaly present Extremity: COMMON NORMALS: normal to inspection, capillary refill normal, no clubbing, cyanosis or edema, no calf tenderness and no pedal edema Neuro: SENSORIUM/ORIENTATION: Yes oriented to person, Yes oriented to place and Yes oriented to time Skin: COMMON NORMALS: no rashes or lesions noted GENERAL SKIN EXAM: no rashes or lesions noted Course Vital Signs: Vital signs: Vital Signs Temperature 97.9 F 06/23/22 10:34 Pulse Rate 97 06/23/22 12:22 Respiratory Rate 14 06/23/22 10:34 Blood Pressure 149/101 06/23/22 12:22 Pulse Oximetry 69 L 06/23/22 12:22 Oxygen Delivery Me thod Room Air 06/23/22 11:48 MDM - Neuro Symptoms/Deficit Medical Decision Making Brain metastasis with small amount of petechial hemorrhaging. Patient is awake and alert his symptoms of actually improved already. Initially we had contacted neurosurgery to discuss possible transfer. Films were uploaded to [facility] and neurosurgery at [facility] discussed with me via phone after they had reviewed them. At this point he does not feel that the patient needs to be emergently transferred he does require further work-up and asked that we arrange for appropriate scan including MRI of the head and CT of the test abdomen pelvis to evaluate for primary source. Discussed with the patient. He is comfortable with going home at this point we will start him on dexamethasone 4 mg 4 times daily. If contacted case management for expedited scheduling of the testing. Note that the patient had a CT in April that showed a nonocclusive PEs for which she was started on Eliquis. He is continue his Eliquis for now discussed that with neurosurgery as well. Suspect this PEs were precipitated by his underlying tumor. If he has any worsening or recurrence of symptoms she should return. We are making arrangements for follow-up with neurosurgery as well. Also called Dr. Shadi Borja patient's primary. Was concerned there is enough follow-up that needs to be arranged on this and this should be monitored to make sure it is completed. Dr. Borja will make other outpatient arrangements and assist the patient with reestablishing with his previous oncologist. We discussed the findings of today's labs and imaging today. Medical Records I reviewed the patient's medical records. Lab Data I reviewed the patient's lab results. 06/23/22 11:11 06/23/22 11:11 Laboratory Results WBC 6.1 10^3/uL (4.0-10.0) 06/23/22 11:11 RBC 5.41 10^6/uL (4.1-5.3) H 06/23/22 11:11 Hgb 14.9 g/dL (11.7-16.6) 06/23/22 11:11 Hct 45.5 % (42.0-52.0) 06/23/22 11:11 MCV 84.1 fl (80-94) 06/23/22 11:11 MCH 27.5 pg (28.0-34.0) L 06/23/22 11:11 MCHC 32.7 g/dL (30.0-36.0) 06/23/22 11:11 RDW 14.7 % (12.1-15.1) 06/23/22 11:11 Plt Count 198 10^3/cmm (130-400) 06/23/22 11:11 MPV 9.8 fL (7.4-10.4) 06/23/22 11:11 Neut % (Auto) 66.3 % 06/23/22 11:11 Lymph % (Auto) 22.3 % 06/23/22 11:11 [place] % (Auto) 8.7 % 06/23/22 11:11 Eos % (Auto) 1.8 % 06/23/22 11:11 Baso % (Auto) 0.7 % 06/23/22 11:11 Neut # (Auto) 4.02 10^3/uL (1.8-7.7) 06/23/22 11:11 Lymph # (Auto) 1.4 10^3/uL (0.8-4.8) 06/23/22 11:11 [place] # (Auto) 0.5 10^3/uL (0.2-0.9) 06/23/22 11:11 Eos # (Auto) 0.1 10^3/uL (0.0-0.8) 06/23/22 11:11 Baso # (Auto) 0.0 10^3/uL (0.0-0.1) 06/23/22 11:11 Nucleated RBC % (auto) 0 % 06/23/22 11:11 Nucleated RBCs # 0.0 /100WBC 06/23/22 11:11 Sodium 137 mmol/L (136-145) 06/23/22 11:11 Potassium 4.7 mmol/L (3.5-5.1) 06/23/22 11:11 Chloride 105 mmol/L (98-107) 06/23/22 11:11 Carbon Dioxide 21 mmol/L (22-29) L 06/23/22 11:11 Anion Gap 15.7 (5-19) 06/23/22 11:11 BUN 16 mg/dL (8-23) 06/23/22 11:11 Creatinine 1.0 mg/dL (0.7-1.2) 06/23/22 11:11 GFR Calculation 74.8 mL/min (90-130) L 06/23/22 11:11 Glucose 94 mg/dL (65-115) 06/23/22 11:11 POC Glucose 96 mg/dL (70-110) 06/23/22 10:35 Calculated Osmolality 285 mOsm/kg (285-295) 06/23/22 11:11 Calcium 8.6 mg/dL (8.5-10.5) 06/23/22 11:11 Total Bilirubin 0.5 mg/dL (0.15-1.2) 06/23/22 11:11 AST 18 U/L (0-40) 06/23/22 11:11 ALT 14 U/L (0-41) 06/23/22 11:11 Alkaline Phosphatase 74 U/L (40-130) 06/23/22 11:11 Total Protein 6.9 g/dL (6.6-8.7) 06/23/22 11:11 Albumin 4.0 g/dL (3.5-5.2) 06/23/22 11:11 Globulin 2.9 g/dL (1.3-4.6) 06/23/22 11:11 Discharge Plan Discharge Patient Disposition: Home Clinical Impression: Brain tumor, Pulmonary embolism, History of malignant melanoma Condition: Stable Prescriptions: New dexamethasone 4 mg tablet 4 mg PO QID Qty: 120 0RF ondansetron HCl 4 mg tablet 4 mg PO Q6H PRN (Reason: nausea and vomiting) Qty: 20 0RF No Action ibuprofen 200 mg Tablet 400 mg PO BID Eliquis 5 mg tablet 5 mg PO BID Discharge Orders: Discharge ED (Routine); Ordered 06/23/22 Ordered By: Tom Jeter Referrals: Shadi Borja MD [Primary Care Provider] - Discharge Diet: Usual diet Discharge Activity: Increase activity as tolerated Patient Instructions: Opioid Safety, Pain Management Activity Restrictions/Additional Instructions: You were seen today for concern of stroke CT shows masses in the brain with some adjacent swelling. Recommend he continue Eliquis, do not take any nonsteroidal anti-inflammatories. We also recommend he start on Decadron 4 mg 4 times a day. We will make arrangements for outpatient testing to include a CT of your chest abdomen pelvis as well and MRI of your head. Dr. Lubin the neurosurgeon will see you in [place] we also recommend that you reestablish with a previous oncologist that took care of your malignant melanoma several years ago to complete help complete the work-up for these masses in the brain. If you have any recurrence of symptoms return to the emergency room. Coding Level of Care Code ED Data Entry Assistant for Faustino Vann
[2022-06-23] MEDS: iohexol 350 mg/mL 500 mL Btl (per mL) IV (10:30)
[2022-06-23 10:34] VITALS: BP 154/102; PULSE 63; RESP 14; TEMP 36.6; O2SAT 96; BMI 36.6
[2022-06-23 10:40] LABS: Glucose Point of Care 96 mg/dL (70-110)
--- NOTE | 2022-06-23 11:11 | PM.CONSULT ---
Providers/Reason For Consult Consulting Physician/Specialty*: Gutierrez hampton MD Neurology Reason for Consult*: Right upper and right lower extremity weakness, focal motor seizure involving the right arm and right leg and metastatic brain lesions Primary Care Provider: Shadi Borja MD History of Present Illness History of Present Illness Darrell Shafer is a 66 year old male with a history of coronary atherosclerotic heart disease status post stent placements with recurrent clotting of the cardiac stents despite being on Plavix, Brilinta and heparin drip. Patient was recently diagnosed with a pulmonary embolus and was started on Eliquis less than 60 days prior to this emergency room visit. The patient also has a history of melanoma involving the left forearm treated and removed in 2014. He also has a history of gouty arthritis. The patient reports that along with the Eliquis he has been taking ibuprofen for his arthritic pain. The patient reports being in his usual state of health until approximately 9 AM this morning. He was getting ready to go fishing and stated that he leaned over to put on his sandals and experienced a trembling like sensation in his hand which marched up his arm and then down the right side of his body followed by jerking of his right arm and right leg for approximately 20 minutes. The event was witnessed by family members and according to the family the patient did not experience any altered awareness, or speech difficulty or visual difficulty or headaches or nausea vomiting. The patient stated that the jerking episode was followed by weakness of the right arm and right leg and he was having trouble using his right arm and right leg. As a result he was brought to the [facility] emergency room for evaluation. Code stroke was initiated while the patient was in route. I presented to the emergency room shortly after receiving the code stroke alert. Upon arrival I spoke with the emergency room physician who informing the patient's NIH score was 5. Patient underwent head CT scan with and without contrast which revealed a left frontal brain tumor as well as most a metastatic lesion in the right hemisphere. Currently the patient remains alert. According to the patient he has been experiencing recurrent episodes described as trembling and jerking of the right arm and right leg for the past 4 years. He reports that the episodes were mild and did not last very long and therefore he ignored the symptoms. According to the patient all of the right-sided jerking episodes have been acute in onset without warning and resolve quickly with no alteration of consciousness. But today, the episode of trembling and jerking in the right arm and right leg was severe and lasted for approximately 20 minutes. According to the patient he has not experienced any altered awareness with any of the right-sided jerking episodes he also denied any speech difficulty, visual difficulty, headaches, nausea or vomiting with the episodes. In view of the brain tumors reported on CT scan with contrast and the fact the patient is on Eliquis, he was not a candidate for tPA. The patient reports that his right arm and right leg weakness has improved since he presented to the emergency room and there is concerned that his weakness may have been secondary to Aidan's paralysis from a may focal motor seizure originating in the motor strip of the left hemisphere and manifested as right upper and right lower extremity trembling and jerking. The patient and family who was present in the emergency room bed 11 were all informed of the head CT findings and the patient will be transferred to neurosurgery at another facility as well as recommendation that the patient be evaluated by oncology and that he undergo a neurological evaluation at the other facility and undergo EEG since the patient experienced what clinically sounds like a focal motor seizure originating in the left motor strip and the frontal region. Past medical history Myocardial infarct Coronary atherosclerotic heart disease status post stent placement x2 with reports of recurrent clotting of the stents Pulmonary embolus patient currently on Eliquis started less than 60 days prior to this neurological evaluation History of melanoma involving the left forearm status post surgery 2015 Gouty arthritis (patient reports that he has been taking Advil for the pain. The patient was informed today to not take any nonsteroidal anti-inflammatory medications since he is on Eliquis. The patient can speak with the other physicians regarding his cardiac stents to determine if he is a candidate for aspirin, if needed after further evaluation of the brain lesions and after hemorrhage has been ruled out) Drug allergies: None Current medications Eliquis 5 mg p.o. twice daily Ibuprofen 400 mg p.o. twice daily Habits: None Family history: Remarkable for a mother who experienced a myocardial infarct. There is no family history of seizures, or cancer Review of Systems General: Reports: 10 or more systems reviewed and unremarkable except in HPI and below and Other (Trembling and jerking of the right upper and right lower extremities) Card: Reports: other (Cardiac stent placements x2) Resp: Reports: other (Pulmonary embolus on Eliquis) Musc: Reports: joint pain and muscle weakness Neuro: Reports: numbness in extremities, weakness in extremities and other (Numbness in the left hand and left arm since the melanoma surgery) Medications/Allergies Home Medications Medication Instructions Recorded Confirmed Last Taken Type apixaban 5 mg tablet (Eliquis) 5 mg PO BID 06/23/22 06/23/22 06/23/22 History ibuprofen 200 mg tablet 400 mg PO BID 06/23/22 06/23/22 06/23/22 History Allergies Allergy/AdvReac Type Severity Reaction Status Date / Time No Known Allergies Allergy Verified 06/23/22 11:06 PFSH Acute PFSH: Medical History Acute respiratory failure with hypoxia Coronary artery disease History of 2 stents, does not use any medications other than aspirin COVID-19 determined by clinical diagnostic criteria Exacerbation of gout History of malignant melanoma History of nonmelanoma skin cancer No pertinent past medical history Pulmonary embolism Surgical History H/O hemorrhoidectomy History of appendectomy History of heart artery stent Hx laparoscopic cholecystectomy Family History Denies family history of Diabetes Clotting disorder Dementia Social History Smoking and tobacco status: never smoked Vitals/I&O/Wt Last Vital Signs Temp 97.9 F 06/23/22 10:34 Pulse 63 06/23/22 10:34 Resp 14 06/23/22 10:34 BP 154/102 06/23/22 10:34 Pulse Ox 96 06/23/22 10:34 O2 Del Method Room Air 06/23/22 10:34 Weight last 48 hrs Weight 270 lb Physical Exam Narrative: NIH stroke score NIHSS:?? Level Of Conscious ness - 1a: 0? Leve l Of Consciousness Questions - 1b: B oth Correct? Level Of Consciousness Commands - 1c: Bot h Correct? Best Ga ze - 2: Normal? Vi sual Bridges - 3: N o Visual Loss? Fac ial Palsy - 4: Nor mal? Motor Arm Rig ht - 5: Drift? Mot or Arm Left - 5: N o Drift? Motor Leg Right - 6: Drift? Motor Leg Left - 6: No Drift? Limb Ataxia - 7: Presen t In Two Limbs? Se nsory - 8: Mild To Moderate Loss? Be st Language - 9: N o Aphasia? Dysarth ia - 10: Normal? E xtinction And Inat tention - 11: 0 Score:?? Total Score: 5 Currently the patient is alert and oriented x3. Speech is fluent. Head atraumatic. Neck supple. Cranial nerves II through XII intact pupils 3 mm round and reactive to light and accommodation. Extraocular movements intact. There were no nystagmus. Disc appeared to be sharp. Visual bridges appear to be full via confrontation. Neck supple without bruits. Motor testing reveals 3/5 strength in the right upper extremity and right lower extremity. Motor testing of the left arm and left leg were 5/5 bilaterally. Sensory examination revealed decreased pinprick in the hands and fingers of the left hand up to his proximal arm since the melanoma surgery in 2014. Proprioception was intact in all extremities. Deep tendon reflexes 1-2+ bilaterally. Plantar responses were flexor bilaterally there was no clonus. Gait was not tested secondary to the right-sided weakness. Throat clear. Lungs clear. Heart regular rhythm and rate extremities were negative for clubbing cyanosis or edema. There were signs of surgery from his melanoma on the left forearm. There was no sign of infection Data 06/23/22 11:11 06/23/22 11:11 A&P Assessment and plan (1) Brain tumor: (2) Seizure disorder, focal motor: (3) Weakness: Plan Assessment: 1. Left frontal brain lesion and reports of questionable right hemisphere lesion suggestive of possible metastatic cancer 2. 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 Right arm and right leg weakness most likely related to the left hemispheric brain lesion with reported edema as well as the possibility of superimposed symptoms secondary to Aidan's paralysis related to the focal motor seizure involving the right arm and right leg that occurred today lasting for 20 minutes witnessed by the family. 4. History of pulmonary embolus patient started on Eliquis less than 60 days prior to this emergency room evaluation 5. History of coronary atherosclerotic heart disease status post stent placements x2 in the past 6. Ibuprofen use for chronic pain 7. History of melanoma involving the left forearm requiring surgery in 2014 Plan: 1. Recommend transfer to neurosurgery for brain lesions with some mass effect 2. Agree with starting Decadron for reported edema/mass effect 3. Recommend patient be evaluated by neurology when he arrives at the other facility regarding the clinical history suggestive of focal motor jacksonian march seizures involving the right upper and right lower extremity suggestive of left frontal hemisphere lesion involving the left motor and to have patient undergo EEG to assess for any subclinical seizure activity and to assist in determining if anticonvulsant medications are required. 4. While in the emergency room the patient was instructed to stop using nonsteroidal anti-inflammatory medications (other than the possibility of aspirin if needed) since nonsteroidal anti-inflammatory medications have been reported to be associated with increased risk for strokes and myocardial infarctions as well as blood clots Consult Attestations Medical Necessity Statement: Patient was evaluated by neurology since code stroke was initiated and patient was experiencing right-sided weakness involving his arm and leg as well as reports of focal motor seizures involving the right side of his body and findings of brain lesions on noncontrast and contrast head CT Time Spent in Patient Care: Time: 10:15 AM to 11:05 AM Coding Level of Care Code 58936 Diagnoses Brain tumor D49.6 Seizure disorder, focal motor G40.109 Weakness R53.1 Time Spent (min) 50
[2022-06-23] MEDS: dexamethasone 10 mg/mL INJ IVP (11:15)
[2022-06-23 11:25] LABS: Basophils % 0.7 %; Eosinophils # 0.1 10^3/uL (0.0-0.8); Eosinophils % 1.8 %; Hematocrit 45.5 % (42.0-52.0); Hemoglobin 14.9 g/dL (11.7-16.6); Lymphocytes # 1.4 10^3/uL (0.8-4.8); Lymphocytes % 22.3 %; Mean Corpuscular HGB Conc 32.7 g/dL (30.0-36.0); Mean Corpuscular Hemoglobin 27.5 pg (28.0-34.0); Mean Corpuscular Volume 84.1 fl (80-94); Mean Platelet Volume 9.8 fL (7.4-10.4); Monocytes # 0.5 10^3/uL (0.2-0.9); Monocytes % 8.7 %; Neutrophils # 4.02 10^3/uL (1.8-7.7); Neutrophils % 66.3 %; Nucleated Red Blood Cells % 0 %; Platelet Count 198 10^3/cmm (130-400); Red Blood Count 5.41 10^6/uL (4.1-5.3); Red Cell Distribution Width 14.7 % (12.1-15.1); White Blood Count 6.1 10^3/uL (4.0-10.0)
[2022-06-23 11:38] LABS: Alanine Aminotransferase 14 U/L (0-41); Alkaline Phosphatase 74 U/L (40-130); Anion Gap 15.7 (5-19); Aspartate Amino Transferase 18 U/L (0-40); Blood Urea Nitrogen 16 mg/dL (8-23); Calcium 8.6 mg/dL (8.5-10.5); Carbon Dioxide 21 mmol/L (22-29); Chloride 105 mmol/L (98-107); Globulin 2.9 g/dL (1.3-4.6); Glomerular Filtration Rate 74.8 mL/min (90-130); Glucose 94 mg/dL (65-115); Osmolality Calculated 285 mOsm/kg (285-295); Potassium 4.7 mmol/L (3.5-5.1); Sodium 137 mmol/L (136-145); Total Bilirubin 0.5 mg/dL (0.15-1.2); Total Protein 6.9 g/dL (6.6-8.7)
[2022-06-23 11:48] VITALS: BP 168/101; PULSE 68; O2SAT 96
[2022-06-23 12:22] VITALS: BP 149/101; PULSE 97; O2SAT 69
--- NOTE | 2022-06-23 13:53 | DCPLANNER ---
Addendum entered by Kailyn Fierro 06/28/22 07:38: Patient had an MRI head and CT abd/pelvis scheduled - patient did attend appointments. Original Note: credit analysis manager had message to schedule an outpatient MRI head and CT abd/pelvis. credit analysis manager faxed signed order to centralized scheduling, who will call patient with appointment information.
== END 2022-06-23 12:25 | disposition home or self-care (01) ==
PROVIDERS: Emergency Provider Family Medicine; PCP Family Medicine
DX: D49.6 Neoplasm of unspecified behavior of brain (principal); I26.99 Other pulmonary embolism without acute cor pulmonale; Z85.820 Personal history of malignant melanoma of skin
CPT/HCPCS: 36415; 36416; 70470; 80053; 82962; 85025; 96374; 99285; J1100; Q9967

== ENCOUNTER 2022-06-24 09:23 | Outpatient (CLI) | payer MEDICARE, SELFPAY ==
--- NOTE | 2022-06-24 | CT_ITS ---
WS: [id number] CT CHEST, ABDOMEN AND PELVIS WITH CONTRAST HISTORY: MELANOMA WITH METS TECHNIQUE: Contiguous 5 mm axial imaging performed through the chest, abdomen and pelvis with IV cont rast, oral contrast has been provided. Coronal and sagittal reformats chest. Coronal and sagittal ref ormats through the abdomen and pelvis. All CT scans at [facility] use at least one of these d ose optimization techniques: automated exposure control; mA and/or kV adjustment per patient size (in cludes targeted exams where dose is matched to clinical indication); or iterative reconstruction. CONTRAST: Omnipaque 350; 100 mL IV. DLP: 1601.63 mGy.cm COMPARISON: Chest CT 04/21/[address]: There are scattered irregular shaped opacities throughout the lungs. 3 mm nodule along the RIGHT major fissure. Additional nodule measuring 7 mm LEFT lower lobe. Mild interstitial thickening. 7 mm nodule in the anterior medial RIGHT upper lobe. Overall improvement in aeration since 04/21/2022. There is less hazy attenuation throughout both lungs. No significant axillary adenopathy. There is extensive mediastinal and hilar lymphadenopathy. Largest cluster of lymph nodes at the RIGHT hilum measures 2.9 x 3.5 cm. Bilateral hilar and proximal interl obar lymphadenopathy. Subcarinal lymph node is enlarged at 2.6 cm in diameter. Heart size is normal. Coronary artery calcifications. Abdomen CT: No liver metastases identified. Gallbladder is contracted. No bile duct dilatation. Fatty replacement and atrophy of the pancreas. Spleen is normal size but contains a mixed attenuation mass centrally measuring 6.4 x 7.0 cm. No adrenal metastasis. Mild atrophy of each kidney with a few area s of cortical thinning. No solid mass or change or obstruction. Atherosclerosis aorta. Stomach is well distended with oral contrast. No small bowel obstruction. No mesenteric implants. Lisa or appendectomy. There are a few scattered diverticula without acute diverticulitis. No ascites or adenopathy within the abdomen. Pelvic CT: No free fluid. No adenopathy. Urinary bladder is only minimally distended. Mild prominence of the seminal vesicles. No metastatic lymph nodes in the inguinal regions. Partial fusion RIGHT SI joint. No osteoblastic or osteolytic bone disease is appreciated. CT/CT chest abdpel w/*[id number] IMPRESSION: 1. Overall improvement in pulmonary aeration since the prior study of 3. There are a few scattered opacifications and a few nodules which are very no nspecific. Could represent early metastatic lesions or post inflammatory. 2. There is significant lymphadenopathy within the thorax including the hilar and mediastinal regions. Largest cluster of lymph nodes at the RIGHT hilum jigna ures 2.9 x 3.5 cm. Lymphadenopathy was also described on the prior study of 04/12. Neoplastic versus reactive. 3. Splenic mass suspicious for metastatic disease. Metastatic mass measures 6. 4 x 7.0 cm. 4. No hepatic or adrenal metastasis. 5. No significant adenopathy in the abdomen or pelvis. There are a few scatter ed small mesenteric and iliac chain lymph nodes but these are benign in appeara nce.
[2022-06-24] MEDS: iohexol 350 mg/mL 500 mL Btl (per mL) IV (09:54)
[2022-06-24] MEDS: iohexol 350 mg/mL 500 mL Btl (per mL) PO (09:54)
== END 2022-06-24 09:24 | disposition home or self-care (01) ==
PROVIDERS: PCP Family Medicine; Visit Provider Family Medicine
DX: C79.31 Secondary malignant neoplasm of brain (principal); Z85.820 Personal history of malignant melanoma of skin
CPT/HCPCS: 71260; 74177; Q9967

== ENCOUNTER 2022-06-27 11:29 | Outpatient (CLI) | payer MEDICARE, SELFPAY ==
--- NOTE | 2022-06-27 11:37 | MR_ITS ---
WS: [id number] MRI HEAD WITH CONTRAST TECHNIQUE: Sagittal T1, T2 axial, T2 axial FLAIR, axial susceptibility weighted imaging, axial diffus ion weighted images, and coronal T2 images were obtained. Pre and post-T1 axial and post T1 coronal i mages. ADC and FSPGR images. CLINICAL INFORMATION: DISORDER OF BRAIN COMPARISON: None. FINDINGS: No evidence restricted diffusion to suggest acute ischemia. Ventricular system and basal cisterns are patent. Enhancing LEFT posterior parietal lesion measuring 1.5 x 1.2 cm with moderate surrounding ed jennifer. Mild mass effect on the LEFT frontal horn and LEFT lateral ventricle. Mass effect is similar to the recent CT. No hydrocephalus. Additional enhancing lesion in the RIGHT parietal lobe posteriorly m easuring 7 x 8 mm. Mild surrounding edema. No other visualized enhancing parenchymal lesions. No visu alized infratentorial lesions. Normal visualized dural venous sinuses. Normal posterior fossa. Normal vascular flow voids at the skull base. No extra-axial fluid collection s. Paranasal sinuses are well aerated. Mastoid air cells well aerated. Hemosiderin associated with th e LEFT parietal lesion. Normal optic chiasm and pituitary infundibulum. Temporal lobes and hippocampal formations are normal in appearance. MR/MR head wo/w con [id number] IMPRESSION: 1. Enhancing intraparenchymal LEFT parietal lesion with hemosiderin and modera te surrounding edema suspicious for metastatic disease. This is stable since th e recent CT. 2. Stable mass effect on the LEFT posterior lateral ventricle and LEFT frontal horn. No hydrocephalus. 3. Smaller RIGHT posterior parietal lesion is stable since the recent CT measu ring 7 x 8 mm. Mild surrounding edema. 4. No other visualized enhancing intracranial lesions. 5. Mild small vessel changes. Mild parenchymal volume loss. 6. Paranasal sinuses and mastoid air cells well aerated. 7. No other acute findings.
[2022-06-27] MEDS: gadobenate dimeglumine 20 mL vial IV (13:08)
== END 2022-06-27 11:30 | disposition home or self-care (01) ==
LOC: RAD 11:32
PROVIDERS: PCP Family Medicine; Visit Provider Family Medicine
DX: G93.9 Disorder of brain, unspecified (principal)
CPT/HCPCS: 70553; A9577

== ENCOUNTER → 2022-07-12 14:28 | Outpatient (BNVA) | payer MEDICARE, SELFPAY | PROVIDERS: PCP Family Medicine; Visit Provider Dermatology | DX: L57.0 Actinic keratosis (principal); C79.89 Secondary malignant neoplasm of other specified sites; L81.4 Other melanin hyperpigmentation; L82.1 Other seborrheic keratosis; L57.8 Other skin changes due to chronic exposure to nonionizing radiation | CPT/HCPCS: 17004; 99213 ==

== ENCOUNTER 2022-07-31 17:43 | Emergency (ER) | payer MEDICARE, SELFPAY ==
[2022-07-31 17:54] VITALS: BP 160/99; PULSE 86; RESP 18; TEMP 36.4; O2SAT 98; BMI 37.0
[2022-07-31 18:00] LABS: Glucose Point of Care 520 mg/dL (70-110)
--- NOTE | 2022-07-31 18:15 | W.ED.RECABL ---
HPI - Recheck/Abnormal Lab/Rx General: Chief Complaint: Recheck/Abnormal Lab/Rx Stated Complaint: abnormal labs, glucose high Time Seen by Provider: 07/31/22 18:03 Source: patient Mode of arrival: ambulatory Limitations: no limitations History of Present Illness: 67-year-old male has a history of recent diagnosis of a brain tumor 6 weeks ago he has been on steroids ever since then he states that he has been having high blood sugar over the last week he saw his PCP last week was started on 10 units of insulin daily but states it is continue to be high and he has had some weakness fatigue and increased thirst blood sugar here is 520 denies any fevers denies any worsening improving factors. Review of Systems Const: Reports: fatigue; Denies: fever(s), chills, body aches or change in appetite Eyes: Denies: blurry vision ENMT: Denies: throat pain or dental pain Card: Denies: chest pain Resp: Denies: dyspnea GI: Denies: abdominal pain, nausea, vomiting or diarrhea : Denies: dysuria Musc: Denies: neck pain or back pain Skin/Breast: Denies: rash Neuro: Denies: headache(s) Psych: Denies: depression Arron/Lymph: Denies: easy bruising All/Imm: Denies: urticaria PFSH ED PFSH: Medical History Acute respiratory failure with hypoxia Coronary artery disease History of 2 stents, does not use any medications other than aspirin COVID-19 determined by clinical diagnostic criteria Exacerbation of gout History of malignant melanoma History of nonmelanoma skin cancer No pertinent past medical history Pulmonary embolism Surgical History H/O hemorrhoidectomy History of appendectomy History of heart artery stent Hx laparoscopic cholecystectomy Family History Mother Malignant melanoma Denies family history of Diabetes Clotting disorder Dementia Social History Smoking and tobacco status: never smoked Physical Exam Const: COMMON NORMALS: no acute distress, patient oriented x3 and healthy appearing HENMT: COMMON NORMALS: normocephalic and atraumatic HEAD & SCALP: normocephalic and atraumatic Eye: COMMON NORMALS: Equal, round and reactive pupils present and EOMs intact bilaterally PUPIL: Yes Equal, round and reactive pupils present Neck/C-Spine: COMMON NORMALS: full ROM and supple Chest: COMMONS NORMALS: normal inspection of the chest and normal palpation of entire chest wall Resp: COMMON NORMALS: normal respiratory effort, No retractions, No use of accessory muscles and clear to auscultation bilaterally AUSCULTATION: clear to auscultation bilaterally Cardio: COMMON NORMALS: regular rate, regular rhythm and No murmurs present (Cardio) RATE: regular rate RHYTHM: regular rhythm GI: COMMON NORMALS: Normal to inspection, nondistended, normoactive bowel sounds present, Soft to palpation, non-tender and no masses PALPATION: Yes Soft to palpation Extremity: COMMON NORMALS: normal to inspection and full ROM Neuro: COMMON NORMALS: patient oriented x3, moves all extremities and no focal motor deficits Psych: COMMON NORMALS: mental status grossly normal, Normal thought process present and cooperative THOUGHT PROCESS: Normal thought process present Skin: COMMON NORMALS: no rashes or lesions noted and no wounds GENERAL SKIN EXAM: no rashes or lesions noted Course Vital Signs: Vital signs: Vital Signs Temperature 97.5 F L 07/31/22 17:54 Pulse Rate 71 07/31/22 20:00 Respiratory Rate 18 07/31/22 17:54 Blood Pressure 135/91 07/31/22 20:00 Pulse Oximetry 96 07/31/22 20:00 Oxygen Delivery Me thod Nasal Cannula 07/31/22 20:00 MDM - Recheck/Abnormal Lab/Rx Medical Decision Making Patient presents with hyperglycemia likely due to his steroids his blood sugars came down here he is to continue the insulin but we will start him on metformin as well he is to follow-up with his PCP and 47 days and return if worsening he understands agrees to plan. Medical Records I reviewed the patient's medical records. Lab Data I reviewed the patient's lab results. 07/31/22 18:39 07/31/22 18:39 Laboratory Results WBC 9.1 10^3/uL (4.0-10.0) 07/31/22 18:39 RBC 5.11 10^6/uL (4.1-5.3) 07/31/22 18:39 Hgb 14.2 g/dL (11.7-16.6) 07/31/22 18:39 Hct 42.0 % (42.0-52.0) 07/31/22 18: MCV 82.2 fl (80-94) 07/31/22 18:39 MCH 27.8 pg (28.0-34.0) L 07/31/22 18: MCHC 33.8 g/dL (30.0-36.0) 07/31/22 18: RDW 14.2 % (12.1-15.1) 07/31/22 18: Plt Count 148 10^3/cmm (130-400) 07/31/22 18: MPV 9.7 fL (7.4-10.4) 07/31/22 18:39 Neut % (Auto) 79.3 % 07/31/22 18:39 Lymph % (Auto) 11.1 % 07/31/22 18:39 [place] % (Auto) 6.1 % 07/31/22 18: Eos % (Auto) 0.0 % 07/31/22 18:39 Baso % (Auto) 0.3 % 07/31/22 18:39 Neut # (Auto) 7.23 10^3/uL (1.8-7.7) 07/31/22 18:39 Lymph # (Auto) 1.0 10^3/uL (0.8-4.8) 07/31/22 18:39 [place] # (Auto) 0.6 10^3/uL (0.2-0.9) 07/31/22 18:39 Eos # (Auto) 0.0 10^3/uL (0.0-0.8) 07/31/22 18: Baso # (Auto) 0.0 10^3/uL (0.0-0.1) 07/31/22 18: Nucleated RBC % (auto) 0 % 07/31/22 18: Nucleated RBCs # 0.0 /100WBC 07/31/22 18:39 Sodium 132 mmol/L (136-145) L 07/31/22 18: Potassium 4.1 mmol/L (3.5-5.1) 07/31/22 18: Chloride 92 mmol/L (98-107) L 07/31/22 18:39 Carbon Dioxide 21 mmol/L (22-29) L 07/31/22 18:39 Anion Gap 23.1 (5-19) H 07/31/22 18:39 BUN 32 mg/dL (8-23) H 07/31/22 18:39 Creatinine 0.9 mg/dL (0.7-1.2) 07/31/22 18:39 GFR Calculation 84.2 mL/min (90-130) L 07/31/22 18:39 Glucose 535 mg/dL (65-115) H* 07/31/22 18:39 POC Glucose 295 mg/dL (70-110) H 07/31/22 20:47 Estimat Average Glucose 226 07/31/22 18:39 Hemoglobin A1c 9.5 % (4.0-6.0) H 07/31/22 18:39 Calculated Osmolality 305 mOsm/kg (285-295) H 07/31/22 18:39 Calcium 8.3 mg/dL (8.5-10.5) L 07/31/22 18:39 Total Bilirubin 0.5 mg/dL (0.15-1.2) 07/31/22 18:39 AST 35 U/L (0-40) 07/31/22 18:39 ALT 126 U/L (0-41) H 07/31/22 18:39 Alkaline Phosphatase 86 U/L (40-130) 07/31/22 18:39 Total Protein 5.1 g/dL (6.6-8.7) L 07/31/22 18:39 Albumin 3.4 g/dL (3.5-5.2) L 07/31/22 18:39 Globulin 1.7 g/dL (1.3-4.6) 07/31/22 18:39 Urine Color Yellow (Yellow) 07/31/22 18:44 Urine Appearance Clear (CLEAR) 07/31/22 18:44 Urine pH 5 (5-7) 07/31/22 18:44 Ur Specific [place] 1.015 (1.005-1.030) 07/31/22 18:44 Urine Protein Neg (Negative) 07/31/22 18:44 Urine Glucose (UA) 4+ (Normal) H 07/31/22 18:44 Urine Ketones 1+ (Negative) H 07/31/22 18:44 Urine Blood Neg (Negative) 07/31/22 18:44 Urine Nitrate Negative (Negative) 07/31/22 18:44 Urine Bilirubin Neg (Negative) 07/31/22 18:44 Urine Urobilinogen Norm mg/dL (Negative) 07/31/22 18:44 Ur Leukocyte Esterase Negative (Negative) 07/31/22 18:44 Discharge Plan Discharge Patient Disposition: Home Clinical Impression: Hyperglycemia Condition: Stable Prescriptions: New metformin 500 mg tablet 500 mg PO BID Qty: 60 0RF No Action ibuprofen 200 mg Tablet 400 mg PO BID Eliquis 5 mg tablet 5 mg PO BID dexamethasone 4 mg tablet 4 mg PO QID Qty: 120 0RF ondansetron HCl 4 mg tablet 4 mg PO Q6H PRN (Reason: nausea and vomiting) Qty: 20 0RF Discharge Orders: Discharge ED (Routine); Ordered 07/31/22 Ordered By: Gregorio Rodriguez Referrals: Shadi Borja MD [Primary Care Provider] - 1-3 days Discharge Diet: Advance as tolerated Discharge Activity: Resume usual activity Patient Instructions: Hyperglycemia Coding Level of Care Code ED [employer]
[2022-07-31] MEDS: sodium chloride 0.9% 1,000 ML 999 ML IV (18:31)
[2022-07-31] MEDS: insulin regular-human 100 units/1 mL 10 UNIT IVP (18:35)
[2022-07-31 18:39] LABS: Glucose Point of Care 499 mg/dL (70-110)
[2022-07-31 18:47] LABS: Add Urine Microscopic? NO; Charge for UA Resulting for Rev
[2022-07-31 18:48] LABS: Bilirubin Urine Neg (Negative); Blood Urine Neg (Negative); Glucose Urine UA 4+ (Normal); Ketones Urine 1+ (Negative); Leukocyte Esterase Urine Negative (Negative); Nitrate Urine Negative (Negative); Protein Urine Neg (Negative); Specific Gravity, Urine 1.015 (1.005-1.030); Urine Appearance Clear (CLEAR); Urine Color Yellow (Yellow); Urobilinogen Urine Norm (Negative); pH Urine 5 (5-7)
[2022-07-31 18:49] LABS: Basophils % 0.3 %; Hemoglobin 14.2 g/dL (11.7-16.6); Lymphocytes % 11.1 %; Mean Corpuscular HGB Conc 33.8 g/dL (30.0-36.0); Mean Corpuscular Hemoglobin 27.8 pg (28.0-34.0); Mean Corpuscular Volume 82.2 fl (80-94); Mean Platelet Volume 9.7 fL (7.4-10.4); Monocytes # 0.6 10^3/uL (0.2-0.9); Monocytes % 6.1 %; Neutrophils # 7.23 10^3/uL (1.8-7.7); Neutrophils % 79.3 %; Nucleated Red Blood Cells % 0 %; Platelet Count 148 10^3/cmm (130-400); Red Blood Count 5.11 10^6/uL (4.1-5.3); Red Cell Distribution Width 14.2 % (12.1-15.1); White Blood Count 9.1 10^3/uL (4.0-10.0)
[2022-07-31 19:00] VITALS: BP 157/106; PULSE 88; O2SAT 97
[2022-07-31 19:00] LABS: Total Bilirubin 0.5 mg/dL (0.15-1.2)
[2022-07-31 19:16] LABS: Alanine Aminotransferase 126 U/L (0-41); Albumin Level 3.4 g/dL (3.5-5.2); Alkaline Phosphatase 86 U/L (40-130); Anion Gap 23.1 (5-19); Aspartate Amino Transferase 35 U/L (0-40); Blood Urea Nitrogen 32 mg/dL (8-23); Calcium 8.3 mg/dL (8.5-10.5); Carbon Dioxide 21 mmol/L (22-29); Chloride 92 mmol/L (98-107); Osmolality Calculated 305 mOsm/kg (285-295); Potassium 4.1 mmol/L (3.5-5.1); Sodium 132 mmol/L (136-145); Total Protein 5.1 g/dL (6.6-8.7)
[2022-07-31 19:17] LABS: Globulin 1.7 g/dL (1.3-4.6); Glomerular Filtration Rate 84.2 mL/min (90-130); Glucose 535 mg/dL (65-115)
[2022-07-31 19:26] LABS: Glucose Point of Care 357 mg/dL (70-110)
[2022-07-31 19:30] VITALS: BP 139/97; PULSE 85; O2SAT 96
[2022-07-31 20:00] VITALS: BP 135/91; PULSE 71; O2SAT 96
[2022-07-31 20:01] LABS: Glucose Point of Care 332 mg/dL (70-110)
[2022-07-31 20:32] LABS: Estmated Average Glucose 226; Hemoglobin A1C 9.5 % (4.0-6.0)
[2022-07-31] MEDS: insulin regular-human 100 units/1 mL 5 UNIT IVP (20:48)
[2022-07-31 20:54] LABS: Glucose Point of Care 295 mg/dL (70-110)
[2022-07-31 21:06] VITALS: BP 138/89; PULSE 80; RESP 20; O2SAT 97
== END 2022-07-31 21:09 | disposition home or self-care (01) ==
PROVIDERS: Emergency Provider Emergency Medicine; PCP Family Medicine
DX: R73.9 Hyperglycemia, unspecified (principal); I25.10 Atherosclerotic heart disease of native coronary artery without angina pectoris; Z86.711 Personal history of pulmonary embolism
CPT/HCPCS: 36416; 80053; 81003; 82962; 83036; 85025; 96361; 96374; 96376; 99284; J1815; J7030

== ENCOUNTER 2022-08-31 08:25 | Oncology outpatient (recurring) (ONCR) | payer MEDICARE, SELFPAY | END 2022-09-08 23:59 | disposition home or self-care (01) | PROVIDERS: PCP Family Medicine; Visit Provider Internal Medicine Hematology & Oncology | DX: C79.31 Secondary malignant neoplasm of brain (principal); C77.8 Secondary and unspecified malignant neoplasm of lymph nodes of multiple regions; C78.01 Secondary malignant neoplasm of right lung; C78.02 Secondary malignant neoplasm of left lung; C79.89 Secondary malignant neoplasm of other specified sites; Z85.820 Personal history of malignant melanoma of skin; I82.401 Acute embolism and thrombosis of unspecified deep veins of right lower extremity; Z79.01 Long term (current) use of anticoagulants; Z87.891 Personal history of nicotine dependence | CPT/HCPCS: 99204 ==

== ENCOUNTER 2022-09-19 13:42 | Outpatient (CLI) | payer MEDICARE, SELFPAY ==
--- NOTE | 2022-09-19 14:09 | CTR_ITS ---
PROCEDURE INFORMATION: Exam: CT Chest With Contrast; Diagnostic Exam date and time: 09/19/2022 3:14 PM Age: 67 years old Clinical indication: Condition or disease; Other: Melanoma left arm; known metastasis. The Prior surgery; Surgery date: 6+ months; Surgery type: Appy; Additional info: Follow up TECHNIQUE: Imaging protocol: Diagnostic computed tomography of the chest with contrast. Radiation optimization: All CT scans at this facility use at least one of these dose optimization techniques: automated exposure control; mA and/or kV adjustment per patient size (includes targeted exams where dose is matched to clinical indication); or iterative reconstruction. Contrast material: OMNI 350; Contrast volume: 95 ml; Contrast route: INTRAVENOUS (IV); REPORTING DATA: Count of CT and Cardiac NM exams in prior 12 months: This patient has received 3 known CTs and 0 known cardiac nuclear medicine studies in the 12 months prior to the current study. COMPARISON: CT chest abdpel w/*[id number] 06/24/2022 10:38 AM RADIATION DOSE METRICS: Total DLP (mGy-cm): 1711.26 FINDINGS: Lungs: Few small pulmonary nodules decreased in size from previous exam some of which are likely metastatic in nature. Minimal subpleural interstitial lung changes intermixed with scattered linear atelectasis improved from previous exam, nonspecific and may in part be secondary to drug induced pulmonary toxicity. Pleural spaces: Unremarkable. No pneumothorax. No pleural effusion. Heart: Heart is not enlarged. Moderate calcification of coronary arteries. Minimal pericardial effusion, stable. Lymph nodes: Mild mediastinal and hilar lymphadenopathy measuring up to 2 cm decreased in size from previous exam and presumed metastatic. No significant axillary lymphadenopathy. Vasculature: Unremarkable. No aortic aneurysm. Bones/joints: Mild degenerative changes throughout the thoracic spine. No suspicious bone lesions detected. Soft tissues: Unremarkable. PROCEDURE INFORMATION: Exam: CT Abdomen And Pelvis With Contrast Exam date and time: 09/19/2022 3:14 PM Age: 67 years old Clinical indication: Condition or disease; Other: Melanoma left arm; Prior surgery; Surgery date: 6+ months; Surgery type: Appy; Additional info: TECHNIQUE: Imaging protocol: Computed tomography of the abdomen and pelvis with contrast. Radiation optimization: All CT scans at this facility use at least one of these dose optimization techniques: automated exposure control; mA and/or kV adjustment per patient size (includes targeted exams where dose is matched to clinical indication); or iterative reconstruction. Contrast material: OMNI 350; Contrast volume: 95 ml; Contrast route: INTRAVENOUS (IV); REPORTING DATA: Count of CT and Cardiac NM exams in prior 12 months: This patient has received 3 known CTs and 0 known cardiac nuclear medicine studies in the 12 months prior to the current study. COMPARISON: CT chest abdpel w/*[id number] 06/24/2022 10:38 AM RADIATION DOSE METRICS: Total DLP (mGy-cm): 1711.26 FINDINGS: Lungs: Lung bases are clear. Liver: Liver is unremarkable. No mass or enlargement detected. Gallbladder and bile ducts: Gallbladder is again noted to be contracted with solitary small gallstone. Bile ducts not dilated. Pancreas: Unremarkable. Main pancreatic duct is not significantly dilated. Spleen: 7.4 x 6.0 cm circumscribed hypodense splenic mass inferior aspect of the spleen, stable. Adrenal glands: Normal. No mass. Kidneys and ureters: Tiny nonobstructing renal calculi bilaterally otherwise kidneys are unremarkable. Stomach and bowel: Unremarkable. No obstruction. No mucosal thickening. Appendix: No evidence of appendicitis. Intraperitoneal space: Unremarkable. No free air. No significant fluid collection. Vasculature: Unremarkable. No abdominal aortic aneurysm. Lymph nodes: Unremarkable. No enlarged lymph nodes. Urinary bladder: Unremarkable as visualized. Reproductive: Prostate gland is mildly enlarged. Bones/joints: Unremarkable. No acute fracture. Soft tissues: Unremarkable. CT/CT chest abdpel w/*[id number] IMPRESSION: 1. Improved mediastinal and bilateral hilar lymphadenopathy likely metastatic in nature and suggesting favorable response to therapy. 2. Few small pulmonary nodules decreased in size and also presumed metastatic in nature. 3. Mild interstitial changes and scattered linear atelectasis improved from earlier study. Follow up IMPRESSION: 1. Stable solitary splenic mass measuring 7.4 x 6.0 cm in diameter presumed metastatic in nature. 2. No other evidence of metastatic disease in the abdomen or pelvis. 3. Chronically contracted gallbladder with solitary gallstone unchanged.
[2022-09-19] MEDS: iohexol 350 mg/mL 500 mL Btl (per mL) PO (15:20)
[2022-09-19] MEDS: iohexol 350 mg/mL 500 mL Btl (per mL) IV (15:20)
== END 2022-09-19 13:43 | disposition home or self-care (01) ==
PROVIDERS: PCP Family Medicine; Visit Provider Internal Medicine Hematology & Oncology
DX: C79.31 Secondary malignant neoplasm of brain (principal); Z85.820 Personal history of malignant melanoma of skin; R59.0 Localized enlarged lymph nodes; R91.8 Other nonspecific abnormal finding of lung field; J98.11 Atelectasis; R16.1 Splenomegaly, not elsewhere classified; K80.20 Calculus of gallbladder without cholecystitis without obstruction
CPT/HCPCS: 71260; 74177; Q9967

== ENCOUNTER 2022-09-29 13:26 | Outpatient (CLI) | payer MEDICARE, SELFPAY ==
--- NOTE | 2022-09-29 13:45 | USCV_ITS ---
Darrell Shafer Age: 67 Gender: M : 1955 Exam Date: 09/29/2022 13:53 Ordering Phys: Vasquez New MD Technologist: Exam Location: [facility] [place] Indication: rt leg swelling PROCEDURES: Venous duplex imaging was performed in only the right lower extremity. The following venous structures were evaluated: common femoral vein, profunda vein, proximal portion of the greater saphenous vein, superficial femoral vein, and the popliteal vein. In addition, the posterior tibial and peroneal trunk were evaluated. FINDINGS: Normal 2-D Doppler and augmentation and compressibility throughout the lower extremity venous structures. Additional imaging through the proximal calf veins also reveals no thrombus. Limited evaluation of the greater saphenous vein is patent with no thrombus. CONCLUSIONS No DVT right lower extremity. Dr. Matilde Anderson DO (Electronically Signed) Final Date: 30 September 2022 09:08 S
== END 2022-09-29 13:27 | disposition home or self-care (01) ==
PROVIDERS: PCP Family Medicine; Visit Provider Internal Medicine Hematology & Oncology
DX: I82.401 Acute embolism and thrombosis of unspecified deep veins of right lower extremity (principal)
CPT/HCPCS: 93971

== ENCOUNTER 2022-10-03 13:19 | Oncology outpatient (recurring) (ONCR) | payer MEDICARE, SELFPAY ==
[2022-10-03 14:06] VITALS: BP 144/91; PULSE 64; RESP 18; TEMP 36.8; O2SAT 98
[2022-10-03 14:15] LABS: Basophils # 0.1 10^3/uL (0.0-0.1); Basophils % 0.8 %; Eosinophils # 0.2 10^3/uL (0.0-0.8); Eosinophils % 2.6 %; Hemoglobin 13.1 g/dL (11.7-16.6); Lymphocytes # 2.6 10^3/uL (0.8-4.8); Lymphocytes % 33.6 %; Mean Corpuscular HGB Conc 31.2 g/dL (30.0-36.0); Mean Corpuscular Hemoglobin 26.8 pg (28.0-34.0); Mean Corpuscular Volume 85.9 fl (80-94); Mean Platelet Volume 9.2 fL (7.4-10.4); Monocytes # 0.7 10^3/uL (0.2-0.9); Monocytes % 8.6 %; Neutrophils # 4.16 10^3/uL (1.8-7.7); Nucleated Red Blood Cells % 0 %; Platelet Count 277 10^3/cmm (130-400); Red Blood Count 4.89 10^6/uL (4.1-5.3); Red Cell Distribution Width 17.2 % (12.1-15.1); White Blood Count 7.7 10^3/uL (4.0-10.0)
[2022-10-03 14:28] LABS: D Dimer 1.58 ug/mIFEU (0-0.59)
[2022-10-03 14:37] LABS: Alanine Aminotransferase 10 U/L (0-41); Albumin Level 3.7 g/dL (3.5-5.2); Alkaline Phosphatase 70 U/L (40-130); Aspartate Amino Transferase 12 U/L (0-40); Blood Urea Nitrogen 12 mg/dL (8-23); Calcium 9.4 mg/dL (8.5-10.5); Carbon Dioxide 25 mmol/L (22-29); Chloride 104 mmol/L (98-107); Globulin 3.1 g/dL (1.3-4.6); Glomerular Filtration Rate 84.2 mL/min (90-130); Glucose 86 mg/dL (65-115); Osmolality Calculated 289 mOsm/kg (285-295); Sodium 140 mmol/L (136-145); Total Bilirubin 0.6 mg/dL (0.15-1.2); Total Protein 6.8 g/dL (6.6-8.7)
== END 2022-10-09 23:59 | disposition home or self-care (01) ==
PROVIDERS: PCP Family Medicine; Visit Provider Internal Medicine Hematology & Oncology
DX: I82.401 Acute embolism and thrombosis of unspecified deep veins of right lower extremity (principal); Z85.820 Personal history of malignant melanoma of skin
CPT/HCPCS: 36415; 80053; 85025; 85378; 99214

== ENCOUNTER → 2022-11-21 15:31 | Outpatient (BNVA) | payer MEDICARE, SELFPAY | PROVIDERS: PCP Family Medicine; Visit Provider Dermatology | DX: C79.89 Secondary malignant neoplasm of other specified sites (principal); L81.4 Other melanin hyperpigmentation; L82.1 Other seborrheic keratosis; L57.8 Other skin changes due to chronic exposure to nonionizing radiation; Z85.820 Personal history of malignant melanoma of skin; L57.0 Actinic keratosis | CPT/HCPCS: 17000; 17003; 99213 ==

== ENCOUNTER 2022-12-27 10:12 | Outpatient (CLI) | payer MEDICARE, SELFPAY ==
[2022-12-27] MEDS: iohexol 350 mg/mL 500 mL Btl (per mL) PO (10:50)
[2022-12-27 10:58] LABS: Blood Urea Nitrogen 14 mg/dL (8-23); Glomerular Filtration Rate 74.5 mL/min (90-130)
--- NOTE | 2022-12-27 11:00 | CT_ITS ---
WS: [id number] CT CHEST AND ABDOMEN TECHNIQUE: Contrast-enhanced CT of the chest and abdomen with coronal and sagittal reformatted images . CLINICAL INFORMATION: Follow up COMPARISON: CT 09/19/2022 DLP: 1344.[address] scans at [facility] use at least one of these dose optimization techniques: automated e xposure control; mA and/or kV adjustment per patient size (includes targeted exams where dose is matc hed to clinical indication); or iterative reconstruction. CT CHEST: Chronic emphysematous changes. No acute pulmonary infiltrates. Normal caliber thoracic aorta. Proxima l main pulmonary arteries are normal. LEFT hilar masslike lymphadenopathy appears slightly more promi nent today measuring 2.5 x 1.9 cm. Normal size anterior mediastinal and parabronchial lymph nodes. St able appearing subcarinal lymph nodes. A few prominent axillary lymph nodes not pathologically enlarg ed unchanged. Tiny pericardial effusion. No progressed or suspicious pulmonary parenchymal opacities. Interstitial thickening and parenchymal scarring in the lung bases. Largest nodule inferior LEFT upper lobe laterally measures 4 mm is unchan ged. CT ABDOMEN: Previously described metastatic splenic lesion has increased in size today measuring 7.2 x 8.4 x 6.1 cm. Adjacent tiny satellite nodule in the posterior spleen appears new from previous. Diffuse fatty filtration of the liver. Normal portal vein and splenic vein. Cholelithiasis. Normal GE junction. Fatty atrophy of the pancreas. Adrenal glands are normal. Normal renal parenchymal enhance ment. No hydronephrosis. Tiny LEFT renal cyst. Normal caliber abdominal aorta. Slightly aneurysmal di stal abdominal aorta measuring 2.5 x 2.7 cm unchanged. IMPRESSION: 1. Slightly progressed LEFT suprahilar lymphadenopathy today measuring 2.5 x 1.9 cm compared to prev ious measuring approximately 2.1 x 1.6 cm 2. Previously described metastatic splenic lesion has increased in size today measuring 7.2 x 8.4 x 6.1 cm. Adjacent tiny satellite nodule in the posterior spleen appears new from previous 3. No other significant changes.
[2022-12-27] MEDS: iohexol 350 mg/mL 500 mL Btl (per mL) IV (11:05)
== END 2022-12-27 10:13 | disposition home or self-care (01) ==
LOC: RAD 10:13
PROVIDERS: Internal Medicine Medical Oncology; PCP Family Medicine; Visit Provider Internal Medicine Hematology & Oncology
DX: Z85.820 Personal history of malignant melanoma of skin (principal); R59.0 Localized enlarged lymph nodes; C78.89 Secondary malignant neoplasm of other digestive organs
CPT/HCPCS: 71260; 74160; 82565; 84520; Q9967

== ENCOUNTER 2023-01-03 11:33 | Oncology outpatient (recurring) (ONCR) | payer MEDICARE, SELFPAY ==
[2023-01-03 11:55] VITALS: BP 117/75; PULSE 76; RESP 16; TEMP 36.3; O2SAT 96
[2023-01-03 12:14] LABS: Basophils % 0.4 %; Eosinophils % 0.3 %; Hematocrit 45.4 % (37-53); Lymphocytes # 1.5 10^3/uL (0.8-4.8); Lymphocytes % 14.4 %; Mean Corpuscular HGB Conc 31.7 g/dL (30-55); Mean Corpuscular Hemoglobin 25.3 pg (27-33); Mean Corpuscular Volume 79.8 fl (82-101); Mean Platelet Volume 9.8 fL (7.4-10.4); Monocytes # 0.7 10^3/uL (0.2-0.9); Monocytes % 7.1 %; Neutrophils # 8.12 10^3/uL (1.8-7.7); Neutrophils % 77.5 %; Nucleated Red Blood Cells % 0 %; Platelet Count 281 10^3/cmm (157-399); Red Blood Count 5.69 10^6/uL (3.85-5.65); Red Cell Distribution Width 15.2 % (12.1-15.1); White Blood Count 10.47 10^3/uL (3.29-11.43)
[2023-01-03 12:34] LABS: Alanine Aminotransferase 6 U/L (0-41); Albumin Level 3.9 g/dL (3.5-5.2); Alkaline Phosphatase 72 U/L (40-130); Anion Gap 18.2 (5-19); Aspartate Amino Transferase 7 U/L (0-40); Blood Urea Nitrogen 17 mg/dL (8-23); Calcium 9.6 mg/dL (8.5-10.5); Carbon Dioxide 21 mmol/L (22-29); Chloride 104 mmol/L (98-107); Globulin 3.5 g/dL (1.3-4.6); Glomerular Filtration Rate 84.2 mL/min (90-130); Glucose 112 mg/dL (65-115); Osmolality Calculated 290 mOsm/kg (285-295); Potassium 4.2 mmol/L (3.5-5.1); Sodium 139 mmol/L (136-145); Total Bilirubin 0.6 mg/dL (0.15-1.2); Total Protein 7.4 g/dL (6.6-8.7)
== END 2023-01-09 23:59 | disposition home or self-care (01) ==
PROVIDERS: Internal Medicine Hematology & Oncology; PCP Family Medicine; Visit Provider Internal Medicine Medical Oncology
DX: Z85.820 Personal history of malignant melanoma of skin (principal); I82.401 Acute embolism and thrombosis of unspecified deep veins of right lower extremity; Z79.899 Other long term (current) drug therapy
CPT/HCPCS: 36415; 80053; 85025; 99214

== ENCOUNTER 2023-02-06 14:22 | Outpatient (CLI) | payer MEDICARE, SELFPAY ==
--- NOTE | 2023-02-06 12:30 | PETR_ITS ---
PROCEDURE INFORMATION: Exam: PET/CT Skull Base to Mid-thigh Exam date and time: 02/06/2023 1:20 PM Age: 67 years old Clinical indication: Abnormal findings; Slightly progressed left suprahilar lymphadenopathy today measuring 2.5 x 1.9 cm compared to. Previous measuring approximately 2.1 x 1.6 cm; Prior surgery; Surgery date: 6+ months; Surgery type: Heart appy; Patient HX: HX of melanoma left arm; Additional info: Adenopathy progression LABS AND CLINICAL REPORTS: Glucose: 92 mg/dl Treatment strategy for malignancy (PET staging): Restaging (PS) TECHNIQUE: Imaging protocol: Following at least four-hour fasting and following the injection of radiopharmaceutical, low dose CT images were obtained. Then, PET images were obtained. Attenuation corrected images were constructed using the CT scan. Fused images of PET and CT were reviewed. The standardized uptake values (SUV) reported below are maximum values within a region of interest, expressed in gm/ml. Exam includes orbital meatal line to mid-thigh. Radiopharmaceutical: 12.84 mCi F-18 FDG (Fluorodeoxyglucose), IV. Time of imaging post radiopharmaceutical administration: 1 hour Injection site: site COMPARISON: CT chest abdomen w con* 12/27/2022 11:02 AM FINDINGS: Brain: There is hypodensity in the right frontal lobe surrounding a 2.8 cm hyperdense lesion for example on series 3, image 24. There is minimal mass effect with partial effacement of the right lateral ventricle. There is uptake in the hyperdense lesion with SUV maximum of 9.4. The region of hypodensity surrounding the lesion is photopenic on PET. Paranasal sinuses: There is moderate mucosal thickening right maxillary sinus with associated uptake likely inflammatory SUV max measures 3.6. No air-fluid level seen. Pharynx: Asymmetric uptake is seen in the right tonsillar pillar with SUV maximum of 4.6. There is no definite mass in this region. Larynx: No abnormal uptake. Lungs, pleura and trachea: Left suprahilar region mass measures 2.5 x 1.9 cm on series 3, image 117, unchanged. SUV maximum measures 11.5. Unchanged 4 mm left upper lobe nodule in the lingula on series 3, image 123 without uptake likely below resolution. Chronic interstitial changes are similar. Heart: Stable heart size. Stable small pericardial effusion. Coronary arteries: Stable coronary artery atherosclerosis. Mediastinal space: No abnormal uptake. Liver: No abnormal uptake. Gallbladder and bile ducts: Gallstones are unchanged. Pancreas: No abnormal uptake. Spleen: Mass in the spleen inferiorly better seen on prior study with contrast measuring approximately 8 x 9 cm not significant changed when measured in the same fashion. This has uptake on PET with SUV maximum of 10.7. Adrenal glands: No abnormal uptake. Kidneys and ureters: 2 mm nonobstructing left renal stone. Stomach and bowel: No abnormal uptake. Urinary bladder: The bladder wall is thickened with incomplete distention Reproductive: The prostate gland is enlarged. Vasculature: Ectatic distal abdominal aorta to 2.6 cm is unchanged. Lymph nodes: Subcentimeter additional mediastinal lymph nodes are unchanged without significant uptake on PET. Bones/joints: No abnormal uptake in the visualized axial and appendicular skeleton. Soft tissues: Unchanged surgical clips left axilla. There is a small fat containing umbilical hernia present. PET/PET skulltothigh SUBSEQ [id number] IMPRESSION: 1. Left suprahilar lymphadenopathy is unchanged with uptake on PET suspicious for metastasis. Lesion in the inferior spleen is similar with uptake on PET suspicious for metastasis as well. 2. There is a hypermetabolic mass in the right frontal lobe suspicious for intracranial metastasis with surrounding hypodensity likely from vasogenic edema. There is minimal mass effect without significant midline shift. Recommend follow-up MRI brain with and without contrast material for further assessment. 3. Asymmetric uptake right tonsillar pillar without definite mass on CT. This is nonspecific and may be inflammatory. Recommend attention on follow-up.
== END 2023-02-06 14:23 | disposition home or self-care (01) ==
LOC: RAD 14:22
PROVIDERS: PCP Family Medicine; Visit Provider Nurse Practitioner Family
DX: R59.0 Localized enlarged lymph nodes (principal); R93.89 Abnormal findings on diagnostic imaging of other specified body structures; Z85.820 Personal history of malignant melanoma of skin; D73.89 Other diseases of spleen; G93.9 Disorder of brain, unspecified
CPT/HCPCS: 78815; A9552

== ENCOUNTER 2023-02-08 13:14 | Outpatient (CLI) | payer MEDICARE, SELFPAY ==
--- NOTE | 2023-02-08 13:30 | MR_ITS ---
WS: [id number] MRI BRAIN WITH AND WITHOUT CONTRAST HISTORY: difficulty with gait, grasping objects COMPARISON: 06/27/2022 TECHNIQUE: Multiplanar imaging performed through the brain with [employer] IV. Significant adverse change in appearance of the brain since the prior study. There are now numerous m etastatic lesions scattered throughout the brain. The largest metastatic lesion with hemorrhagic comp onent in the posterior RIGHT frontal lobe measures 2.4 x 2.2 cm with a large amount of surrounding va sogenic edema. There are additional bilateral and multi lobar metastatic lesions of various sizes in both the supratentorial and infratentorial brain. These are predominantly at the pacheco-white matter ju nction. The previously described hemorrhagic lesion in the posterior LEFT parietal lobe has decreased in size although there is still some edema present. Mild cerebral atrophy and small vessel disease. No midline shift. There is very slight mass effect up on the RIGHT lateral ventricle due to the RIGHT frontal lobe metastatic lesion. Visualized edi and b rainstem are negative. Paranasal sinuses: Mucoperiosteal thickening RIGHT maxillary sinus. No air-fluid levels. Mastoid air cells: Normal. Calvarium and scalp: Normal. IMPRESSION: 1. Significant progression of metastatic disease throughout the brain since 06/27/2022. Some of these metastatic sites are hemorrhagic. The largest is now in the RIGHT frontal lobe measuring 2.4 x 2.2 c m. There are innumerable lesions in the supratentorial and infratentorial white matter. 2. Large amount of vasogenic edema in the RIGHT frontal lobe with slight mass effect upon the RIGHT lateral ventricle. No hydrocephalus.
[2023-02-08] MEDS: gadobenate dimeglumine 20 mL vial IV (15:24)
== END 2023-02-08 13:15 | disposition home or self-care (01) ==
LOC: RAD 13:14
PROVIDERS: PCP Family Medicine; Visit Provider Nurse Practitioner Family
DX: C79.31 Secondary malignant neoplasm of brain (principal); G93.6 Cerebral edema; R26.81 Unsteadiness on feet; Z85.820 Personal history of malignant melanoma of skin
CPT/HCPCS: 70553; A9577

== ENCOUNTER 2023-03-09 10:37 | Oncology outpatient (recurring) (ONCR) | payer MEDICARE, SELFPAY ==
--- NOTE | 2023-02-26 16:11 | ONCRAD TMN_ITS ---
Radiation Oncology Weekly Treatment Management Patient: Darrell Shafer MR#: [id number] : 1955 Attending Physician: Rickie Jansen Date of Service: 02/26/2023 Referring Physician(s) : Diagnosis: C79.31 - Secondary malignant neoplasm of brain, Diagnosed 02/08/2023 (Active) Radiotherapy to date: Course: WholeBrain 2022, Treatment Site: [id number], Ref. ID: [id number], Energy: 15X, Dose/Fx (cGy): 300, #Fx: , Dose Correction (cGy): 0, Total Dose (cGy): 300, Start Date: 02/26/2023, Elapsed Days: 0 Reason for visit: The patient is being seen today as part of their regularly scheduled weekly on treatment visits to assess for acute toxicities from radiotherapy. Review of Systems: Patient is intolerant of DXM. Now on prednisone 5 mg a day Now with some headache, recurrent depression and panic attacks. Vital Signs: Performed on 02/26/2023 3:38 PM BMI - 36.619 kg/m2 (high), Height - 72 in, Weight - 270.0 lbs, Temperature - 97.5 f, Pulse - 64 /min, Respiration - 16 /min, O2 Sat - 97 %, Pain - 7, Fatigue - 2 and BP - 131/ 90 mm(hg). Physical Exam: Imaging: Radiation therapy imaging related to accurate target localization (i.e. KV, MV and CBCT) was reviewed. Appropriate changes, if any, were made to ensure treatment accuracy. Plan: Continue radiation. Increase prednisone to 40 mg a day, resume Zoloft 50 mg a day. Prescriptions sent via EMR ([employer]) Signed by: Rickie Jansen 02/26/2023 4:09:29 PM
--- NOTE | 2023-02-27 16:24 | ONCRAD TMN_ITS ---
Radiation Oncology Weekly Treatment Management Patient: Darrell Shafer MR#: [id number] : 1955 Attending Physician: Rickie Jansen Date of Service: 02/27/2023 Referring Physician(s) : Diagnosis: C79.31 - Secondary malignant neoplasm of brain, Diagnosed 02/08/2023 (Active) Radiotherapy to date: Course: WholeBrain 2022, Treatment Site: [id number], Ref. ID: [id number], Energy: 15X, Dose/Fx (cGy): 300, #Fx: 2 / 10, Dose Correction (cGy): 0, Total Dose (cGy): 600, Start Date: 02/26/2023, Elapsed Days: 1 Reason for visit: The patient is being seen today as part of their regularly scheduled weekly on treatment visits to assess for acute toxicities from radiotherapy. Review of Systems: Just began 30 mg prednisone and Zoloft. Some headaches and queeziness Vital Signs: Physical Exam: omitted Imaging: Radiation therapy imaging related to accurate target localization (i.e. KV, MV and CBCT) was reviewed. Appropriate changes, if any, were made to ensure treatment accuracy. Plan: Good tolerance of treatment. Will add HC/APAP 5/325 mg for WILLARD, Zofran 4 mg for nausea. Continue treatment as planned. Signed by: Rickie Jansen 02/27/2023 4:22:49 PM
--- NOTE | 2023-03-06 15:10 | ONCRAD TMN_ITS ---
Radiation Oncology Weekly Treatment Management Patient: Darrell Shafer MR#: [id number] : 1955 Attending Physician: Ramesh Francois Date of Service: 03/06/2023 Referring Physician(s) : Dr. Min Rodriguez Diagnosis: C79.31 - Secondary malignant neoplasm of brain, Diagnosed 02/08/2023 (Active) Radiotherapy to date: Course: WholeBrain 2022, Treatment Site: [id number], Ref. ID: [id number], Energy: 15X, Dose/Fx (cGy): 300, #Fx: 6 10, Dose Correction (cGy): 0, Total Dose (cGy): 1,800, Start Date: 02/26/2023, Elapsed Days: 8 Reason for visit: The patient is being seen today as part of their regularly scheduled weekly on treatment visits to assess for acute toxicities from radiotherapy. Review of Systems: He cannot take dexamethasone, which apparently produced multiple problems. He is on prednisone. The dose listed last week was 30 mg but his , who is a nurse, says he is on 40 mg now. He is unsteady on his feet and had a fall this morning though no injury occurred. He is eating well but fluid intake is poor. He is very sedentary. He has mild headaches. No recent seizures. He is noticing slight skin irritation of the scalp. Vital Signs: Performed on 03/06/2023 2:21 PM BMI - 36.51 kg/m2 (high), Height - 72 in, Weight - 269.2 lbs, Temperature - 97.6 f, Pulse - 60 /min, Respiration - 16 /min, O2 Sat - 96 %, Pain - 0, Fatigue - 8 and BP - 121/ 80 mm(hg). Physical Exam: Cranial nerves intact. Motor strength is good bilaterally but there is subtle weakness in the right arm and leg compared to the left. Finger-nose exam intact but very slow. Dxhj-ga-[id number] exam normal. In conversation he answers questions appropriately but at times has word searching. The scalp has moderate erythema. Oral cavity exam reveals no yeast. Imaging: Radiation therapy imaging related to accurate target localization (i.e. KV, MV and CBCT) was reviewed. Appropriate changes, if any, were made to ensure treatment accuracy. Plan: Continue treatment per plan. Continue prednisone. Increase fluid intake. Ambulate with walker instead of cane if his unsteadiness on his feet persists. Signed by: Ramesh Francois 03/06/2023 3:09:29 PM
== END 2023-03-11 23:59 | disposition home or self-care (01) ==
PROVIDERS: PCP Family Medicine; Visit Provider Specialist
DX: Z51.0 Encounter for antineoplastic radiation therapy (principal); C79.31 Secondary malignant neoplasm of brain
CPT/HCPCS: 77290; 77295; 77300; 77334; 77336; 77412; 77417; 99024

== ENCOUNTER → 2023-03-27 09:28 | Outpatient (BNVA) | payer MEDICARE, SELFPAY | PROVIDERS: PCP Family Medicine; Referring Provider Internal Medicine Medical Oncology; Visit Provider Surgery | DX: C43.9 Malignant melanoma of skin, unspecified (principal) | CPT/HCPCS: 99204 ==

== ENCOUNTER 2023-03-30 09:25 | Day surgery (SDC) | payer MEDICARE, SELFPAY ==
[2023-03-30] VITALS (9 sets, daily range): BP systolic 136–179; BP diastolic 75–99; PULSE 60–68; RESP 10–21; TEMP 36.1–36.6; O2SAT 94–97; BMI 35.8
--- NOTE | 2023-03-30 09:25 | P.HPUD_ITS ---
Surgery/Procedure H&P Update DATE OF PROCEDURE: March 30, 2023 DATE H&P PERFORMED: 03/27/23 H&P UPDATE INFORMATION: I have reviewed H&P completed within last 30 days, I have examined patient prior to procedure, No changes to prior documentation and H&P is in [facility] EMR on date indicated PLANNED PROCEDURE: Operation Date: 03/30/23 11:00 Proposed Procedures p [id number] placement port-a-cath C43.9(Not Applicable) - Bairon Vazquez MD
--- NOTE | 2023-03-30 09:25 | W.PM.OPSUD ---
Surgery/Procedure H&P Update DATE OF PROCEDURE: March 30, 2023 DATE H&P PERFORMED: 03/27/23 H&P UPDATE INFORMATION: I have reviewed H&P completed within last 30 days, I have examined patient prior to procedure, No changes to prior documentation and H&P is in [facility] [place] on date indicated PLANNED PROCEDURE: Operation Date: 03/30/23 11:00 Proposed Procedures p [id number] placement port-a-cath C43.9(Not Applicable) - Bairon Vazquez MD
--- NOTE | 2023-03-30 09:29 | SC_ITS ---
WS: [id number] C-ARM RADIOGRAPHS CHEST; 2 IMAGES HISTORY: for port-a-cath COMPARISON: None available. Intraoperative imaging during Mediport placement. Tip in the distal SVC. IMPRESSION: Intraoperative imaging during Mediport placement.
[2023-03-30] MEDS: sodium chloride 0.9% 1,000 ML 30 ML IV (09:47)
--- NOTE | 2023-03-30 10:25 | P.ANESASSM_ITS ---
Pre-Anesthetic Assessment Height/Weight: Height 1.83 m Weight 119.748 kg Temp Pulse Resp BP Pulse Ox O2 Del Method 97.5 F L 67 18 153/96 95 Room Air 03/30/23 09:38 03/30/23 09:38 03/30/23 09:38 03/30/23 09:38 03/30/23 09:38 03/30/23 09:43 Operation Date: 03/30/23 11:00 Proposed Procedures p [id number] placement port-a-cath C43.9(Not Applicable) - Bairon Vazquez MD Familial anesthetic complications: None Was Beta Leandro taken within 24 hours: N/A Was Clonidine taken within 24 hours: N/A Last intake: Intake Last Liquid Date 03/29/23 Last Liquid Time 22:00 Last Solid Date 03/29/23 Last Solid Time 19:30 Social Tobacco and No alcohol Exam alert, oriented x 3, clear to auscultation bilaterally and regular rate & rhythm Airway Mallampati: Class IV Dentition: full Comments: Comments: petersen CV/HEM Coronary Artery Disease (stents > 1 year ago, no blood thinners), Deep Vein Thrombosis and Hypertension Metabolic Morbid Obesity [facility] malignant melanoma Neuropsych Seizure brain tumor s/p radiation Anesthetic Plan ASA status: 4 Anesthesia: MAC Risk of > 500 ml blood loss (7ml/kg in children): No Medications/Allergies Home Medications Medication Instructions Recorded Confirmed Last Taken Type acetaminophen 500 mg capsule 500 mg PO Q6H PRN Mild Pain (Scale 01/03/23 03/29/23 03/30/23 07:30 History Score 1-4) hydrocodone 5 mg-acetaminophen 325 1 tab PO Q6H PRN pain 7 days #28 03/06/23 03/29/23 03/20/23 Rx mg tablet tabs prednisone 20 mg tablet 40 mg (2 x 20 mg) PO DAILY Brain 03/27/23 03/29/23 03/30/23 07:30 Rx metastases, intolerant of dexamethasone #60 tabs sertraline 50 mg tablet (Zoloft) 50 mg PO DAILY depression and new 03/27/23 03/29/23 03/30/23 07:30 Rx brain metastases #30 tabs ondansetron HCl 4 mg tablet 4 mg PO Q8H PRN nausea and 03/29/23 03/30/23 03/27/23 Rx vomiting #30 tabs Allergies Allergy/AdvReac Type Severity Reaction Status Date / Time No Known Allergies Allergy Verified 03/30/23 09:34 Current Medications Generic Name Dose Route Start Last Admin Trade Name Richard PRN Reason Stop Dose Admin Sodium Chloride 1,000 mls @ 30 mls/hr 03/30/23 09:30 03/30/23 09:47 Sodium Chloride 0.9% IV 03/31/23 09:29 30 mls/hr .Q24H ODALYS Administration PFSH Anesthesia Medical History Gout History of respiratory failure (01/2021) With COVID-19 virus infection Malignant melanoma metastatic to brain Steroid-induced hyperglycemia Right leg DVT Pulmonary embolism History of nonmelanoma skin cancer Coronary artery disease History of 2 stents, does not use any medications other than aspirin COVID-19 determined by clinical diagnostic criteria Surgical History (Updated 03/27/23 @ 10:18 by Bairon Vazquez MD) Status post surgical removal of malignant neoplasm of skin Squamous cell carcinoma left forearm in 2014 and nodular basal cell carcinoma left cheek in 2020 History of melanoma excision (04/13/15) Wide excision of upper left arm melanoma with axillary sentinel lymph node biopsy H/O hemorrhoidectomy History of appendectomy History of heart artery stent Family History Mother Malignant melanoma Denies family history of Diabetes Clotting disorder Dementia Social History Smoking and tobacco/nicotine status: former use of tobacco/nicotine Quit status (tobacco/nicotine): has quit using Year quit tobacco: unknown Former quit date comment: smoked x 20 years Data Anesthesia Cardiac Studies: Echocardiogram 04/21/22
[2023-03-30] MEDS: ceFAZolin 3,000 MG in sodium chloride 0.9% (plus) 100 ML 200 MG IV (11:49)
[2023-03-30] MEDS: lidocaine-epi 1% PF 1:200,000 30 mL SDV INJECTION (12:11)
[2023-03-30] MEDS: heparin, porcine 1,000 unit/mL INJ 10 mL 10000 UNIT INJECTION (12:22)
--- NOTE | 2023-03-30 12:36 | PM.OP ---
Operative Report Date of procedure: March 30, 2023 Pre-op diagnosis: Metastatic melanoma Post-op diagnosis: Same Post-op findings: Normal vascular anatomy Procedure done: Insertion of Port-A-Cath Implants: Bard Port-A-Cath Surgeon: Bairon Vazquez MD Inside Sales Supervisor: LUCIANO Jonas Estimated blood loss: 5 Complications: none Brief History: 67-year-old male with metastatic melanoma, he is going to receive chemotherapy and therefore I was requested to place a Port-A-Cath. After discussion of all the risk and benefits as documented in my preop note to decide to proceed. Procedure: Patient was brought into the operating room. He was placed in a spine position. Mother anesthesia sedation was given. The neck and chest was prepped and draped in the usual sterile fashion. Timeout was conducted. I then proceeded to identify the right IJ vein using ultrasound, infiltrated local anesthesia over the vein and proceeded to cannulate the vein under direct use ultrasound guidance using a 18-gauge needle. A wire was advanced through the needle and the needle was removed. The position of the wire was verified with ultrasound and also with fluoroscopy. I then proceeded to inject anesthesia in the upper chest and after connecting the wire insertion site to the chest. At 3 cm incision was made in the right upper chest, the incision was deepened to subcutaneous tissue and then I proceeded to create a subcutaneous pocket to accommodate the Port-A-Cath. A 0.5 cm incision was made at the level of the wire insertion site in the neck, a hemostat was used to create a pocket in the neck and to create a tunnel from the chest to the neck wound. I then placed the Port-A-Cath in the pocket and proceeded to tunnel the catheter using the provided tunneler from the chest wound to the neck wound. The catheter was then cut to length under fluoroscopic guidance. Catheter was flushed. I then proceeded to advance introducer and peel-off sheath over the wire under direct fluoroscopic guidance, the introducer and wire were then removed leaving the peel-off sheath in place. The catheter was advanced through the peel-off sheath and the peel-off sheath was removed leaving the catheter in place. Port was accessed and good blood return and flushing was noted, I then proceeded to hep-locked the catheter. Hemostasis was verified. The wounds were closed in layers using #3-0 Vicryl for the subcutaneous tissue and #4 Monocryl for the skin. Sterile dressing was applied after placing Dermabond. At the end of the procedure all counts were correct, the patient was transferred to the PACU in stable condition.
--- NOTE | 2023-03-30 13:45 | ANE.PACU2 ---
Inpatient post-anesthesia follow up: Airway intact: Yes Vital signs: Temperature 98 F Pulse Rate 63 Respiratory Rate 18 Blood Pressure 136/96 Pulse Oximetry 96 Oxygen Delivery Me thod Room Air Oxygen Flow Rate Fraction of Inspir ed Oxygen Hydration adequate: Yes Nausea and vomiting: No Pain level: 1 Mental status: Baseline
== END 2023-03-30 13:47 | disposition home or self-care (01) ==
PROVIDERS: PCP Family Medicine; Visit Provider Surgery
PROC: (CPT 36561; principal; 2023-03-30 11:00)
DX: C43.9 Malignant melanoma of skin, unspecified (principal); C79.9 Secondary malignant neoplasm of unspecified site; I25.10 Atherosclerotic heart disease of native coronary artery without angina pectoris; Z95.5 Presence of coronary angioplasty implant and graft; I10 Essential (primary) hypertension; Z86.718 Personal history of other venous thrombosis and embolism; Z86.16 Personal history of COVID-19; Z87.891 Personal history of nicotine dependence; Z79.52 Long term (current) use of systemic steroids; Z86.711 Personal history of pulmonary embolism
CPT/HCPCS: 36561; 76000; 77001; C1788; J0690; J1644; J2250; J2704; J7030

== ENCOUNTER 2023-04-04 08:45 | Oncology outpatient (recurring) (ONCR) | payer MEDICARE, SELFPAY ==
[2023-03-13 15:00] LABS: Basophils % 0.2 %; Eosinophils % 0.2 %; Hematocrit 50.1 % (37-53); Lymphocytes % 8.1 %; Mean Corpuscular HGB Conc 31.9 g/dL (30-55); Mean Corpuscular Hemoglobin 25.8 pg (27-33); Mean Corpuscular Volume 80.9 fl (82-101); Mean Platelet Volume 9.5 fL (7.4-10.4); Monocytes # 0.4 10^3/uL (0.2-0.9); Monocytes % 3.5 %; Neutrophils # 11.09 10^3/uL (1.8-7.7); Neutrophils % 87.4 %; Nucleated Red Blood Cells % 0 %; Platelet Count 233 10^3/cmm (157-399); Red Blood Count 6.19 10^6/uL (3.85-5.65); Red Cell Distribution Width 19.2 % (12.1-15.1); White Blood Count 12.67 10^3/uL (3.29-11.43)
[2023-03-13 15:21] LABS: Alanine Aminotransferase 22 U/L (0-41); Albumin Level 3.9 g/dL (3.5-5.2); Alkaline Phosphatase 72 U/L (40-130); Anion Gap 16.5 (5-19); Aspartate Amino Transferase 17 U/L (0-40); Blood Urea Nitrogen 28 mg/dL (8-23); Calcium 9.2 mg/dL (8.5-10.5); Carbon Dioxide 23 mmol/L (22-29); Chloride 102 mmol/L (98-107); Globulin 3.4 g/dL (1.3-4.6); Glomerular Filtration Rate 60.4 mL/min (90-130); Glucose 120 mg/dL (65-115); Lactate Dehydrogenase 233 U/L (135-225); Osmolality Calculated 291 mOsm/kg (285-295); Potassium 4.5 mmol/L (3.5-5.1); Sodium 137 mmol/L (136-145); Total Bilirubin 0.7 mg/dL (0.15-1.2); Total Protein 7.3 g/dL (6.6-8.7)
--- NOTE | 2023-03-14 11:43 | N.ONRD TS_ITS ---
Radiation Oncology Treatment Summary Patient: Darrell Shafer MR#: [id number] : 1955 Age: 67 Sex: Male Dictated by: Rickie Jansen Date of Service: 03/13/2023 Referring Physician(s) : Min Rodriguez MD Diagnosis: C79.31 - Secondary malignant neoplasm of brain, Diagnosed 02/08/2023 (Active) Radiotherapy to Date: Course: WholeBrain 2022, Treatment Site: [id number], Ref. ID: [id number], Energy: 15X, Dose/Fx (cGy): 300, #Fx: 10 / 10, Dose Correction (cGy): 0, Total Dose (cGy): 3,000, Start Date: 02/26/2023, End Date: 03/13/2023, Elapsed Days: 15 Clinical Summary: The patient tolerated RT well. He did require ongoing prednisone at 40 mg/day to aid in control of aron-tumor edema. He was intolerant of dexamethasone. He also had some headaches controlled with HC/APAP. Some nausea treated with Zofran. His gait was unsteady and he did have some non-traumatic falls. He was using a cane. We recommended using a walker. He had some mild scalp erythema while on treatment. Plan: End of treatment today. Continue on the above medications. Follow up in one month to address prednisone taper if not already done by his referring physician. Signed by: Rickie Jansen>03/14/2023 11:41:04 AM <<Signature on File>>
[2023-04-04 08:51] VITALS: BP 127/80; PULSE 86; RESP 18; TEMP 36.4; O2SAT 96; BMI 36.1
[2023-04-04 09:18] LABS: Basophils % 0.3 %; Eosinophils % 0.4 %; Hematocrit 47.6 % (37-53); Lymphocytes # 2.1 10^3/uL (0.8-4.8); Lymphocytes % 23.3 %; Mean Corpuscular HGB Conc 34.9 g/dL (30-55); Mean Corpuscular Hemoglobin 28.9 pg (27-33); Mean Corpuscular Volume 82.8 fl (82-101); Mean Platelet Volume 10.1 fL (7.4-10.4); Monocytes # 0.6 10^3/uL (0.2-0.9); Monocytes % 7.2 %; Neutrophils # 6.07 10^3/uL (1.8-7.7); Neutrophils % 68.1 %; Nucleated Red Blood Cells % 0 %; Platelet Count 186 10^3/cmm (157-399); Red Blood Count 5.75 10^6/uL (3.85-5.65); Red Cell Distribution Width 17.9 % (12.1-15.1); White Blood Count 8.92 10^3/uL (3.29-11.43)
[2023-04-04 09:38] LABS: Alanine Aminotransferase 23 U/L (0-41); Albumin Level 3.7 g/dL (3.5-5.2); Alkaline Phosphatase 57 U/L (40-130); Anion Gap 17.4 (5-19); Aspartate Amino Transferase 16 U/L (0-40); Blood Urea Nitrogen 26 mg/dL (8-23); Calcium 9.6 mg/dL (8.5-10.5); Carbon Dioxide 26 mmol/L (22-29); Chloride 101 mmol/L (98-107); Glomerular Filtration Rate 74.5 mL/min (90-130); Glucose 161 mg/dL (65-115); Osmolality Calculated 298 mOsm/kg (285-295); Potassium 4.4 mmol/L (3.5-5.1); Sodium 140 mmol/L (136-145); Thyroid Stimulating Hormone 2.29 uIU/mL (0.27-4.20); Total Bilirubin 0.5 mg/dL (0.15-1.2); Total Protein 6.7 g/dL (6.6-8.7)
[2023-04-04] MEDS: acetaminophen 325 mg Tablet 650 MG PO (11:24)
[2023-04-04] MEDS: sodium chloride 0.9% 250 ML 75 ML IV (11:27)
[2023-04-04] MEDS: diphenhydrAMINE 50 mg/mL SDV 1mL IVP (11:31)
[2023-04-04] MEDS: famotidine 20 mg/2 mL INJ IVP (11:38)
[2023-04-04 14:55] VITALS: BP 128/79; PULSE 76; RESP 17; TEMP 36; O2SAT 95
== END 2023-04-04 23:59 | disposition home or self-care (01) ==
PROVIDERS: Internal Medicine Medical Oncology; PCP Family Medicine; Visit Provider Radiology Radiation Oncology
DX: C43.9 Malignant melanoma of skin, unspecified; C79.31 Secondary malignant neoplasm of brain; R53.83 Other fatigue; Z79.899 Other long term (current) drug therapy; Z51.11 Encounter for antineoplastic chemotherapy; Z53.9 Procedure and treatment not carried out, unspecified reason
CPT/HCPCS: 99215; 36415; 77336; 77412; 77427; 80053; 83615; 84443; 85025; 96375; 96413; 96415; 96417; A4222; J1200; J1642; J3490; J7050; J9228; J9299

== ENCOUNTER 2023-04-08 21:02 | Emergency (ER) | payer MEDICARE, SELFPAY ==
[2023-04-08] VITALS (16 sets, daily range): BP systolic 124–148; BP diastolic 88–106; PULSE 100–115; RESP 17–25; TEMP 36.8; O2SAT 88–96; BMI 35.8
--- NOTE | 2023-04-08 21:31 | ECG_ITS ---
[facility] Test Date: 2023-04-08 Pat Name: Darrell Shafer Department: Room: Gender: Male Train Controller: : 1955 Requested By: Sree Dc Order Number: [id number] Jony MD: Wesly Bragg M.D. Measurements Intervals [place] Rate: 108 P: 27 AR: 164 QRS: -11 QRSD: 104 T: 111 QT: 318 QTc: 427 Interpretive Statements SINUS TACHYCARDIA POSSIBLE LEFT ATRIAL ENLARGEMENT [-0.1mV P-WAVE IN V1/V2] LOW QRS VOLTAGE IN PRECORDIAL LEADS [QRS DEFLECTION < 1.0 mV IN CHEST LEADS] POSSIBLE RIGHT VENTRICULAR CONDUCTION DELAY [RSR (QR) IN V1/V2] ANTEROLATERAL MYOCARDIAL INFARCTION , OF INDETERMINATE AGE [40+ ms Q WAVE IN I/aVL/V3-V6] Compared to ECG 04/21/2022 04:38:03 Low QRS voltage now present Sinus rhythm no longer present Myocardial infarct finding still present Electronically Signed On 04-08-2023 21:41:52 SEQUINS SLINGER by Wesly Bragg M.D. [id number]
[2023-04-08 21:50] LABS: Basophils % 0.2 %; Eosinophils % 0.1 %; Hematocrit 45.8 % (37-53); Lymphocytes # 0.9 10^3/uL (0.8-4.8); Lymphocytes % 7.7 %; Mean Corpuscular HGB Conc 32.5 g/dL (30-55); Mean Corpuscular Hemoglobin 26.7 pg (27-33); Mean Corpuscular Volume 81.9 fl (82-101); Mean Platelet Volume 9.2 fL (7.4-10.4); Monocytes % 8.3 %; Neutrophils # 9.88 10^3/uL (1.8-7.7); Neutrophils % 83.1 %; Nucleated Red Blood Cells % 0 %; Platelet Count 159 10^3/cmm (157-399); Red Blood Count 5.59 10^6/uL (3.85-5.65); Red Cell Distribution Width 17.8 % (12.1-15.1); White Blood Count 11.88 10^3/uL (3.29-11.43)
[2023-04-08] MEDS: morphine 4 mg/mL SDV 1 mL IVP (21:59)
[2023-04-08] MEDS: ondansetron 2 mg/ML SDV 2 mL 4 MG IVP (21:59)
[2023-04-08 22:02] LABS: D Dimer 2.72 ug/mLFEU (0-0.59)
--- NOTE | 2023-04-08 22:06 | CTR_ITS ---
PROCEDURE INFORMATION: Exam: CTA Chest With Contrast Exam date and time: 04/08/2023 11:14 PM Age: 67 years old Clinical indication: Pain and abnormal findings; Abnormal lab test; Other: N/a; Abdominal pain; Localized; Abnormal diagnostic tests; Elevated d-dimer; Left-sided; Prior surgery; Surgery date: 3-7 days post-operative; Surgery type: Chest port 04/04/2023. Coronary stent. Appy; Patient HX: C/O left sided chest and abd pain. Currently on chemotherapy for metastatic melanoma. History of pe. ; Additional info: Left lower chest and upper abdominal pain. TECHNIQUE: Imaging protocol: Computed tomographic angiography of the chest with contrast. Exam focused on the arteries. 3D rendering (Not supervised by radiologist): MIP and/or 3D reconstructed images were created by the technologist. Radiation optimization: All CT scans at this facility use at least one of these dose optimization techniques: automated exposure control; mA and/or kV adjustment per patient size (includes targeted exams where dose is matched to clinical indication); or iterative reconstruction. Contrast material: OMNI 350; Contrast volume: 100 ml; Contrast route: INTRAVENOUS (IV); COMPARISON: CT angio chest PE protcl [id number] 04/21/2022 3:35 AM RADIATION DOSE METRICS: Total DLP (mGy-cm): 1753.81 FINDINGS: Tubes, catheters and devices: Right-sided Port-A-Cath. Pulmonary arteries: Normal. No pulmonary emboli. Aorta: Unremarkable. No aortic aneurysm. No aortic dissection. Lungs: Bibasilar left greater than right atelectasis versus infiltrate. Pleural spaces: Unremarkable. No pneumothorax. No pleural effusion. Heart: Small pericardial effusion measuring 10 mm in thickness. Cardiomegaly. Coronary arteries: Coronary artery atherosclerotic calcifications. Lymph nodes: 2.8 cm in the nodule along the left aspect of the heart concerning for a malignant process, likely reflecting adenopathy, finding noted prior PET-CT scan from 02/06/2023. Bones/joints: Unremarkable. No acute fracture. Soft tissues: Unremarkable. PROCEDURE INFORMATION: Exam: CT Abdomen And Pelvis With Contrast Exam date and time: 04/08/2023 11:14 PM Age: 67 years old Clinical indication: Pain and abnormal findings; Abnormal lab test; Other: N/a; Abdominal pain; Localized; Abnormal diagnostic tests; Elevated d-dimer; Left-sided; Prior surgery; Surgery date: 3-7 days post-operative; Surgery type: Chest port 04/04/2023. Coronary stent. Appy; Patient HX: C/O left sided chest and abd pain. Currently on chemotherapy for metastatic melanoma. History of pe. ; Additional info: Left lower chest and upper abdominal pain. TECHNIQUE: Imaging protocol: Computed tomography of the abdomen and pelvis with contrast. Radiation optimization: All CT scans at this facility use at least one of these dose optimization techniques: automated exposure control; mA and/or kV adjustment per patient size (includes targeted exams where dose is matched to clinical indication); or iterative reconstruction. Contrast material: OMNI 350; Contrast volume: 100 ml; Contrast route: INTRAVENOUS (IV); COMPARISON: CT chest abd w con*[id number] 12/27/2022 11:02 AM RADIATION DOSE METRICS: Total DLP (mGy-cm): 1753.81 FINDINGS: Liver: Hepatic steatosis. Gallbladder and bile ducts: Normal. No calcified stones. No ductal dilation. Pancreas: Normal. No ductal dilation. Spleen: Heterogeneous low-density mass in the spleen measuring up to 11 cm, somewhat more prominent compared to prior exam, concerning for metastatic disease. Adrenal glands: Normal. No mass. Kidneys and ureters: Perinephric edema bilaterally likely reflecting renal insufficiency. Stomach and bowel: Unremarkable. No obstruction. No mucosal thickening. Appendix: No evidence of appendicitis. Intraperitoneal space: Unremarkable. No free air. No significant fluid collection. Vasculature: Fusiform infrarenal abdominal aortic aneurysm measuring 2.8 cm in diameter. Lymph nodes: Unremarkable. No enlarged lymph nodes. Urinary bladder: Unremarkable as visualized. Reproductive: Unremarkable as visualized. Bones/joints: Unremarkable. No acute fracture. Soft tissues: Unremarkable. CT/CT angio chest w abd pel w con IMPRESSION: 1. Negative for pulmonary embolus. 2. Small pericardial effusion measuring 10 mm in thickness. 3. Cardiomegaly. 4. Coronary artery atherosclerotic calcifications. 5. 2.8 cm in the nodule along the left aspect of the heart concerning for a malignant process, likely reflecting adenopathy, finding noted prior PET-CT scan from 02/06/2023. 6. Bibasilar left greater than right atelectasis versus infiltrate. 7. Right-sided Port-A-Cath. IMPRESSION: 1. Negative for focal acute inflammatory process in the abdomen or pelvis. 2. Hepatic steatosis. 3. Heterogeneous low-density mass in the spleen measuring up to 11 cm, somewhat more prominent compared to prior exam, concerning for metastatic disease. 4. Perinephric edema bilaterally likely reflecting renal insufficiency. 5. Fusiform infrarenal abdominal aortic aneurysm measuring 2.8 cm in diameter.
--- NOTE | 2023-04-08 22:07 | ED_ITS ---
HPI - Abdominal Pain 2 General: Chief Complaint: Abdominal Pain Stated Complaint: cp,Side pain Time Seen by Provider: 04/08/23 21:14 History of Present Illness: 67-year-old male complaining of left low er chest and upper abdominal pain. It started yesterday. He is on a new medication for his malignant melanoma, and believes that this may be a side effect. He denies vomiting or diarrhea. He has been nauseated. No fever. No blood in the stool. Associated Symptoms: Denies chills, diarrhea, fever(s), hematochezia, nausea and vomiting Review of Systems 2 Const: Denies: fever(s), chills or body aches Eyes: Denies: change in vision Card: Reports: chest pain; Denies: palpitations Resp: Reports: dyspnea (Splinting to breeze as it hurts) and non-productive cough; Denies: productive cough or wheezing GI: Denies: abdominal pain, nausea, vomiting, diarrhea or hematochezia Skin/Breast: Denies: rash Neuro: Denies: headache(s), weakness in extremities, dizziness or confusion PFSH ED 2 PFSH: Medical History Gout History of respiratory failure (01/2021) With COVID-19 virus infection Malignant melanoma metastatic to brain Steroid-induced hyperglycemia Right leg DVT Pulmonary embolism History of nonmelanoma skin cancer Coronary artery disease History of 2 stents, does not use any medications other than aspirin COVID-19 determined by clinical diagnostic criteria Surgical History Status post surgical removal of malignant neoplasm of skin Squamous cell carcinoma left forearm in 2014 and nodular basal cell carcinoma left cheek in 2020 History of melanoma excision (04/13/15) Wide excision of upper left arm melanoma with axillary sentinel lymph node biopsy H/O hemorrhoidectomy History of appendectomy History of heart artery stent Family History Mother Malignant melanoma Denies family history of Diabetes Clotting disorder Dementia Social History Smoking and tobacco/nicotine status: former use of tobacco/nicotine Quit status (tobacco/nicotine): has quit using Year quit tobacco: unknown Former quit date comment: smoked x 20 years Physical Exam 2 Const: GENERAL APPEARANCE: cooperative and ill appearing (Mildly); not frail appearing HENMT: COMMON NORMALS: normocephalic, atraumatic and Normal external nose present HEAD & SCALP: normocephalic and atraumatic FACE & SINUS: normal facial exam and face symmetric NOSE: Normal external nose present Eye: COMMON NORMALS: Equal, round and reactive pupils present and EOMs intact bilaterally PUPIL: Yes Equal, round and reactive pupils present Neck/C-Spine: GENERAL: Yes trachea midline Chest: CHEST: Yes Symmetrical chest wall rise Resp: COMMON NORMALS: normal respiratory effort, No retractions, No use of accessory muscles and clear to auscultation bilaterally EFFORT & INSPECTION: Yes other (Splinting) AUSCULTATION: clear to auscultation bilaterally Cardio: COMMON NORMALS: regular rate and regular rhythm RATE: regular rate RHYTHM: regular rhythm GI: COMMON NORMALS: Normal to inspection, nondistended, normoactive bowel sounds present and Soft to palpation PALPATION: Yes Soft to palpation and Yes Tenderness to palpation present (GI) Details: LLQ and LUQ : COMMON NORMALS: Yes no CVA tenderness BLADDER/KIDNEY EXAM: Yes no CVA tenderness Back/Pelvis: COMMON NORMALS: no CVA tenderness Extremity: COMMON NORMALS: no pedal edema Neuro: ROSCOE COMA SCALE: document GCS findings [place]coe coma scale eye opening: Spontaneous [place] coma scale verbal response: Orientated [place] coma scale motor response: Obey commands Roscoe coma scale total score: 15 S ENSORY EXAM: Yes extremities (intact) Psych: COMMON NORMALS: speech normal SPEECH: Yes normal speech Skin: COMMON NORMALS: no rashes or lesions noted GENERAL SKIN EXAM: no rashes or lesions noted Course 2 Vital Signs: Vital signs: Vital Signs Temperature 98.3 F 04/08/23 21:08 Pulse Rate 102 H 04/09/23 02:23 Respiratory Rate 17 04/09/23 02:23 Blood Pressure 157/93 04/09/23 02:23 Pulse Oximetry 94 04/09/23 02:23 Oxygen Delivery Me thod Nasal Cannula 04/08/23 23:35 Oxygen Flow Rate 3 04/08/23 23:35 MDM - Abdominal Pain Medical Decision Making White blood cell count is elevated at 12. D-dimer is 2.72. Negative chest CTA with abdomen pelvis follow-through, save the known splenic mass he has which appears bigger. This could be causing his pain. If his chemotherapy is working on this mass, that could be a source of pain to I suppose. His hemoglobin is 15. He seems stable otherwise. Pain is better controlled after some morphine here. He will be allowed home with pain medication. Close outpatient follow-up with repeat CBC testing if he continues to hurt to ensure there is no significant splenic hemorrhage. They know to return for worsening symptoms. Lab Data 04/08/23 21:35 04/08/23 21:35 Labs/Radiology: Radiology Impressions Chest/Abdomen/Pelvis CT 04/08/23 22:06 IMPRESSION: 1. Negative for pulmonary embolus. 2. Small pericardial effusion measuring 10 mm in thickness. 3. Cardiomegaly. 4. Coronary artery atherosclerotic calcifications. 5. 2.8 cm in the nodule along the left aspect of the heart concerning for a malignant process, likely reflecting adenopathy, finding noted prior PET-CT scan from 02/06/2023. 6. Bibasilar left greater than right atelectasis versus infiltrate. 7. Right-sided Port-A-Cath. IMPRESSION: 1. Negative for focal acute inflammatory process in the abdomen or pelvis. 2. Hepatic steatosis. 3. Heterogeneous low-density mass in the spleen measuring up to 11 cm, somewhat more prominent compared to prior exam, concerning for metastatic disease. 4. Perinephric edema bilaterally likely reflecting renal insufficiency. 5. Fusiform infrarenal abdominal aortic aneurysm measuring 2.8 cm in diameter. Chest X-Ray 04/08/23 22:41 IMPRESSION: 1. Right-sided Port-A-Cath seen with tip over the right atrium. 2. Cardiomegaly. 3. Bilateral mid to lower lung field atelectasis versus minimal infiltrate. Laboratory Results WBC 11.88 10^3/uL (3.29-11.43) H 04/08/23 21:35 RBC 5.59 10^6/uL (3.85-5.65) 04/08/23 21:35 Hgb 14.90 g/dL (11.27-16.99) 04/08/23 21:35 Hct 45.8 % (37-53) 04/08/23 21:35 MCV 81.9 fl (82-101) L 04/08/23 21:35 MCH 26.7 pg (27-33) L 04/08/23 21:35 MCHC 32.5 g/dL (30-55) 04/08/23 21:35 RDW 17.8 % (12.1-15.1) H 04/08/23 21:35 Plt Count 159 10^3/cmm (157-399) 04/08/23 21:35 MPV 9.2 fL (7.4-10.4) 04/08/23 21:35 Neut % (Auto) 83.1 % 04/08/23 21:35 Lymph % (Auto) 7.7 % 04/08/23 21:35 [place] % (Auto) 8.3 % 04/08/23 21:35 Eos % (Auto) 0.1 % 04/08/23 21:35 Baso % (Auto) 0.2 % 04/08/23 21:35 Neut # (Auto) 9.88 10^3/uL (1.8-7.7) H 04/08/23 21:35 Lymph # (Auto) 0.9 10^3/uL (0.8-4.8) 04/08/23 21:35 [place] # (Auto) 1.0 10^3/uL (0.2-0.9) H 04/08/23 21:35 Eos # (Auto) 0.0 10^3/uL (0.0-0.8) 04/08/23 21:35 Baso # (Auto) 0.0 10^3/uL (0.0-0.1) 04/08/23 21:35 Nucleated RBC % (auto) 0 % 04/08/23 21: Nucleated RBCs # 0.0 /100WBC 04/08/23 21:35 D-Dimer 2.72 ug/mLFEU (0-0.59) H 04/08/23 21:35 Sodium 136 mmol/L (136-145) 04/08/23 21:35 Potassium 4.5 mmol/L (3.5-5.1) 04/08/23 21: Chloride 97 mmol/L (98-107) L 04/08/23 21:35 Carbon Dioxide 26 mmol/L (22-29) 04/08/23 21:35 Anion Gap 17.5 (5-19) 04/08/23 21:35 BUN 20 mg/dL (8-23) 04/08/23 21:35 Creatinine 1.0 mg/dL (0.7-1.2) 04/08/23 21:35 GFR Calculation 74.5 mL/min (90-130) L 04/08/23 21:35 Glucose 199 mg/dL (65-115) H 04/08/23 21:35 Calculated Osmolality 290 mOsm/kg (285-295) 04/08/23 21:35 Lactic Acid 2.4 mmol/L (0.5-2.2) H 04/08/23 21:35 Lactic Acid (Sepsis) 1.5 mmol/L (0.5-2.2) 04/08/23 23:54 Calcium 9.6 mg/dL (8.5-10.5) 04/08/23 21:35 Total Bilirubin 0.8 mg/dL (0.15-1.2) 04/08/23 21:35 AST 13 U/L (0-40) 04/08/23 21:35 ALT 18 U/L (0-41) 04/08/23 21:35 Alkaline Phosphatase 61 U/L (40-130) 04/08/23 21:35 C-Reactive Protein 210.1 mg/L (0.0-4.9) H 04/08/23 21:35 Total Protein 6.7 g/dL (6.6-8.7) 04/08/23 21:35 Albumin 3.4 g/dL (3.5-5.2) L 04/08/23 21:35 Globulin 3.3 g/dL (1.3-4.6) 04/08/23 21:35 Lipase 10 U/L (13-60) L 04/08/23 21:35 Urine Color [place] (Yellow) A 04/08/23 23:32 Urine Appearance Clear (CLEAR) 04/08/23 23:32 Urine pH 5 (5-7) 04/08/23 23:32 Ur Specific [place] 1.020 (1.005-1.030) 04/08/23 23:32 Urine Protein Neg (Negative) 04/08/23 23:32 Urine Glucose (UA) Norm (Normal) 04/08/23 23:32 Urine Ketones Negative (Negative) 04/08/23 23:32 Urine Blood 2+ (Negative) H 04/08/23 23:32 Urine Nitrate Negative (Negative) 04/08/23 23:32 Urine Bilirubin 1+ (Negative) H 04/08/23 23:32 Urine Urobilinogen Norm mg/dL (Negative) 04/08/23 23:32 Ur Leukocyte Esterase Negative (Negative) 04/08/23 23:32 Urine RBC 0-4 /hpf (0-2) H 04/08/23 23:32 Urine WBC 0-4 /hpf (0-5) H 04/08/23 23:32 Ur Squamous Epith Cells 0-4 /hpf (0-5) H 04/08/23 23:32 Amorphous Sediment Trace /hpf 04/08/23 23:32 Urine Bacteria Trace /hpf (NONE) 04/08/23 23:32 Urine Mucus Trace /hpf 04/08/23 23:32 All radiology interpretation(s) finalized by discharge Discharge Plan Discharge Patient Disposition: Home Clinical Impression: Splenic mass Condition: Stable Prescriptions: New Percocet 7.5-325 mg tablet 1 tab PO Q6H PRN (Reason: pain) Qty: 10 0RF No Action acetaminophen 500 mg capsule 500 mg PO Q6H PRN (Reason: Mild Pain (Scale Score 1-4)) hydrocodone-acetaminophen 5-325 mg tablet 1 tab PO Q6H PRN (Reason: pain) 7 Days Qty: 28 0RF sertraline [Zoloft] 50 mg tablet 50 mg PO DAILY MDD 100 mg Qty: 30 0RF prednisone 20 mg tablet 40 mg PO DAILY MDD 40 mg Qty: 60 0RF ondansetron HCl 4 mg tablet 4 mg PO Q8H PRN (Reason: nausea and vomiting) Qty: 30 0RF meloxicam 7.5 mg tablet 7.5 mg PO DAILY Qty: 5 0RF Discharge Orders: Discharge ED (Routine); Ordered 04/09/23 Ordered By: Sree Kendall Referrals: Shadi Borja MD [Primary Care Provider] - 4-7 days Darrell Raymond MD [Hospitalist] - 1-3 days Patient Instructions: Opioid Safety, Pain Management Activity Restrictions/Additional Instructions: Return for worsening shortness of breath, mental status changes, weakness, other concerning symptoms. Pain medication as directed. Call your oncologist later today and let them know you are here, and what we found. They may wish to see you. If your pain continues more than a couple of days, you should have your blood count rechecked. Coding Level of Care Code ED Superintendent [employer] for Faustino Vann
[2023-04-08 22:09] LABS: Alanine Aminotransferase 18 U/L (0-41); Albumin Level 3.4 g/dL (3.5-5.2); Alkaline Phosphatase 61 U/L (40-130); Anion Gap 17.5 (5-19); Aspartate Amino Transferase 13 U/L (0-40); Blood Urea Nitrogen 20 mg/dL (8-23); C Reactive Protein 210.1 mg/L (0.0-4.9); Calcium 9.6 mg/dL (8.5-10.5); Carbon Dioxide 26 mmol/L (22-29); Chloride 97 mmol/L (98-107); Globulin 3.3 g/dL (1.3-4.6); Glomerular Filtration Rate 74.5 mL/min (90-130); Glucose 199 mg/dL (65-115); Lipase 10 U/L (13-60); Osmolality Calculated 290 mOsm/kg (285-295); Potassium 4.5 mmol/L (3.5-5.1); Sodium 136 mmol/L (136-145); Total Bilirubin 0.8 mg/dL (0.15-1.2); Total Protein 6.7 g/dL (6.6-8.7)
[2023-04-08 22:13] LABS: Lactic Sepsis W/Reflex 2.4 mmol/L (0.5-2.2)
--- NOTE | 2023-04-08 22:41 | XRR_ITS ---
PROCEDURE INFORMATION: Exam: XR Chest Exam date and time: 04/08/2023 10:41 PM Age: 67 years old Clinical indication: Device placement; Prior surgery; Surgery date: 3-7 days post-operative; Surgery type: Chest port placed 04/04/2023; Patient HX: Verification check for CT injectable chest port. ; Additional info: Line placement TECHNIQUE: Imaging protocol: Radiologic exam of the chest. Views: 1 view. COMPARISON: CT chest abd w con*[id number] 12/27/2022 11:02 AM FINDINGS: Tubes, catheters and devices: Right-sided Port-A-Cath seen with tip over the right atrium. Lungs: Bilateral mid to lower lung field atelectasis versus minimal infiltrate. Pleural spaces: Unremarkable. No pleural effusion. No pneumothorax. Heart/Mediastinum: Cardiomegaly. Bones/joints: Unremarkable. XR/XR chest 1V portable [id number] IMPRESSION: 1. Right-sided Port-A-Cath seen with tip over the right atrium. 2. Cardiomegaly. 3. Bilateral mid to lower lung field atelectasis versus minimal infiltrate.
--- NOTE | 2023-04-08 23:10 | PC.NURSE ---
pt to ct
[2023-04-08] MEDS: iohexol 350 mg/mL 500 mL Btl (per mL) IV (23:15)
[2023-04-08 23:35] LABS: Reflex Lactate Order REFLEX LACTIC ORDERD
[2023-04-08 23:51] LABS: Add Urine Microscopic? YES; Bilirubin Urine 1+ (Negative); Blood Urine 2+ (Negative); Glucose Urine UA Norm (Normal); Ketones Urine Negative (Negative); Leukocyte Esterase Urine Negative (Negative); Nitrate Urine Negative (Negative); Protein Urine Neg (Negative); Urine Appearance Clear (CLEAR); Urine Color Orange (Yellow); Urobilinogen Urine Norm (Negative); pH Urine 5 (5-7)
[2023-04-08 23:52] LABS: Amorphous Sediment Urine TRACE /hpf; Bacteria Urine TRACE /hpf; Mucus Urine TRACE /hpf; RBC Urine 0-4 /hpf (0-2); Squamous Epithelial Cell Urine 0-4 /hpf (0-5); WBC Urine 0-4 /hpf (0-5)
[2023-04-09] VITALS (7 sets, daily range): BP systolic 100–157; BP diastolic 78–95; PULSE 102; RESP 17; O2SAT 93–96
[2023-04-09 00:21] LABS: Lactic Acid level (Lactate) 1.5 mmol/L (0.5-2.2)
[2023-04-09] MEDS: morphine 4 mg/mL SDV 1 mL 2 MG IVP (01:32)
[2023-04-09] MEDS: oxyCODONE-APAP 5-325 mg Tablet 2 TAB PO (01:41)
== END 2023-04-09 02:25 | disposition home or self-care (01) ==
PROVIDERS: Emergency Provider Emergency Medicine; PCP Family Medicine
DX: R16.1 Splenomegaly, not elsewhere classified (principal); Z87.891 Personal history of nicotine dependence; Z85.828 Personal history of other malignant neoplasm of skin; Z85.841 Personal history of malignant neoplasm of brain; I25.10 Atherosclerotic heart disease of native coronary artery without angina pectoris
CPT/HCPCS: 71045; 71275; 74177; 80053; 81001; 83605; 83690; 85025; 85378; 86140; 93005; 96374; 96375; 96376; 99285; J1642; J2270; J2405; Q9967

== ENCOUNTER 2023-04-10 08:17 | Oncology outpatient (recurring) (ONCR) | payer MEDICARE, SELFPAY ==
[2023-04-10] MEDS: sodium chloride 0.9% 500 ML 999 ML IV (09:26)
== END 2023-04-11 23:59 | disposition home or self-care (01) ==
PROVIDERS: PCP Family Medicine; Visit Provider Radiology Radiation Oncology
DX: C43.9 Malignant melanoma of skin, unspecified (principal); C79.31 Secondary malignant neoplasm of brain; R53.83 Other fatigue; Z79.899 Other long term (current) drug therapy; Z79.52 Long term (current) use of systemic steroids
CPT/HCPCS: 96360; 99214; J1642; J7040

== ENCOUNTER 2023-04-12 15:21 | Oncology outpatient (recurring) (ONCR) | payer MEDICARE, SELFPAY ==
[2023-04-12] MEDS: sodium chloride 0.9% 1,000 ML 999 ML IV (16:07)
[2023-04-12 16:12] VITALS: BP 127/74; PULSE 65; RESP 17; TEMP 36.9; O2SAT 90
[2023-04-12 17:08] VITALS: BP 131/75; PULSE 67; O2SAT 91
== END 2023-05-10 23:59 | disposition home or self-care (01) ==
LOC: ONCMED 15:21
PROVIDERS: PCP Family Medicine; Visit Provider Radiology Radiation Oncology
DX: Z85.828 Personal history of other malignant neoplasm of skin; R53.1 Weakness
CPT/HCPCS: 96360; J1642; J7030

== ENCOUNTER 2023-04-15 10:52 | Emergency (ER) | payer MEDICARE, SELFPAY ==
[2023-04-15 10:53] VITALS: BMI 35.8
--- NOTE | 2023-04-15 10:53 | XRR_ITS ---
PROCEDURE INFORMATION: Exam: XR Right Hip Exam date and time: 04/15/2023 11:05 AM Age: 67 years old Clinical indication: Injury or trauma; Fall; Blunt trauma (contusions or hematomas); Right; Hip TECHNIQUE: Imaging protocol: Radiologic exam of the right hip. Views: 2 or 3 views hip with pelvis when performed. COMPARISON: CT angio chest w abd pel w con 04/08/2023 11:14 PM FINDINGS: Bones/joints: Mild spurring involves the acetabulum. No fracture noted. Soft tissues: Unremarkable. XR/XR hip RT 2-3V wo/w pel* [id number] IMPRESSION: I see no acute abnormality.
[2023-04-15 10:55] VITALS: BP 132/86; PULSE 79; RESP 16; TEMP 36.4; O2SAT 93
--- NOTE | 2023-04-15 10:57 | XRR_ITS ---
PROCEDURE INFORMATION: Exam: XR Chest Exam date and time: 04/15/2023 11:05 AM Age: 67 years old Clinical indication: Injury or trauma; Fall; Blunt trauma (contusions or hematomas); Prior surgery; Surgery date: 6+ months; Surgery type: Port TECHNIQUE: Imaging protocol: Radiologic exam of the chest. Views: 1 view. COMPARISON: CT angio chest w abd pel w con 04/08/2023 11:14 PM FINDINGS: Lungs: Both lungs demonstrate chronic interstitial coarsening. No lung mass or infiltrate. Pleural spaces: Unremarkable. No pleural effusion. No pneumothorax. Heart/Mediastinum: Unremarkable. No cardiomegaly. Bones/joints: Unremarkable. Other findings: A right-sided VAD is in good position. XR/XR chest 1V portable [id number] IMPRESSION: I see no acute abnormality.
--- NOTE | 2023-04-15 10:58 | ED_ITS ---
HPI - Extremity Problem General: Chief complaint: Extremity Injury, Lower Stated complaint: RIGHT HIP PAIN S/P FALL Time Seen by Provider: 04/15/23 10:53 Source: patient and EMS Mode of arrival: EMS Limitations: no limitations History of Present Illness: 67-year-old male who fell this morning g round-level fall he states he landed on his right hip he has right hip pain along with some slight left-sided chest pain. States he may have hit his ribs as well he denies hitting his head denies any neck pain denies any loss of consciousness. Rates his pain 8 out of 10 currently worse with movement Associated symptoms: Reports chest pain; Deny fever(s) Review of Systems Const: Denies: fever(s), chills, body aches or change in appetite ENMT: Denies: throat pain or dental pain Card: Reports: chest pain Resp: Denies: dyspnea GI: Denies: abdominal pain, nausea, vomiting or diarrhea Musc: Reports: extremity pain; Denies: neck pain or back pain Neuro: Denies: headache(s) PFSH ED PFSH: Medical History Gout History of respiratory failure (01/2021) With COVID-19 virus infection Malignant melanoma metastatic to brain Steroid-induced hyperglycemia Right leg DVT Pulmonary embolism History of nonmelanoma skin cancer Coronary artery disease History of 2 stents, does not use any medications other than aspirin COVID-19 determined by clinical diagnostic criteria Surgical History Hx of colonoscopy Port-A-Cath in place Status post surgical removal of malignant neoplasm of skin Squamous cell carcinoma left forearm in 2014 and nodular basal cell carcinoma left cheek in 2020 History of melanoma excision (04/13/15) Wide excision of upper left arm melanoma with axillary sentinel lymph node biopsy H/O hemorrhoidectomy History of appendectomy History of heart artery stent Family History Mother Malignant melanoma Denies family history of Diabetes Clotting disorder Dementia Social History Smoking and tobacco/nicotine status: former use of tobacco/nicotine Quit status (tobacco/nicotine): has quit using Year quit tobacco: unknown Former quit date comment: smoked x 20 years Physical Exam Const: COMMON NORMALS: no acute distress, patient oriented x3 and healthy appearing HENMT: COMMON NORMALS: normocephalic and atraumatic HEAD & SCALP: normocephalic and atraumatic Eye: COMMON NORMALS: conjunctivae normal CONJUNCTIVA: Yes conjunctivae normal Neck/C-Spine: COMMON NORMALS: full ROM and supple Chest: COMMONS NORMALS: normal inspection of the chest OTHER: Slight tenderness over left chest wall Resp: COMMON NORMALS: normal respiratory effort, No retractions, No use of accessory muscles and clear to auscultation bilaterally AUSCULTATION: clear to auscultation bilaterally Cardio: COMMON NORMALS: regular rate, regular rhythm and No murmurs present (Cardio) RATE: regular rate RHYTHM: regular rhythm GI: COMMON NORMALS: Normal to inspection, nondistended, normoactive bowel sounds present, Soft to palpation, non-tender and no masses PALPATION: Yes Soft to palpation Extremity: NARRATIVE EXTREMITY EXAM: tenderness over right hip Neuro: COMMON NORMALS: patient oriented x3, moves all extremities and no focal motor deficits Psych: COMMON NORMALS: mental status grossly normal, Normal thought process present and cooperative THOUGHT PROCESS: Normal thought process present Skin: COMMON NORMALS: no rashes or lesions noted and no wounds GENERAL SKIN EXAM: no rashes or lesions noted Course Vital Signs: Vital signs: Vital Signs Temperature 97.5 F L 04/15/23 10:55 Pulse Rate 79 04/15/23 10:55 Respiratory Rate 16 04/15/23 10:55 Blood Pressure 132/86 04/15/23 10:55 Pulse Oximetry 93 04/15/23 10:55 Oxygen Delivery Me thod Room Air 04/15/23 10:55 MDM - Extremity (Nontraumatic) Medical Decision Making Patient presents with right hip pain from a fall imaging shows no fracture spoke to family states has had more falls recently hard time walking due to brain tumor likely. He has home health they state that they are planning on setting up on the hospice he has no acute injuries here he is stable for discharge at this time. Medical Records I reviewed the patient's medical records. Lab Data Radiology Impressions Hip/Pelvis X-Ray 04/15/23 10:53 IMPRESSION: I see no acute abnormality. Chest X-Ray 04/15/23 10:57 IMPRESSION: I see no acute abnormality. Hip CT 04/15/23 11:50 IMPRESSION: No acute traumatic pathology. Mild degenerative change of the right hip. Head CT 04/15/23 12:05 IMPRESSION: I see no significant change since 02/08/2023. There are multiple bilateral brain masses with prominent edema All radiology interpretation(s) finalized by discharge Discharge Plan Discharge Patient Disposition: Home Clinical Impression: Fall, Hip pain, right Condition: Stable Prescriptions: No Action prednisone 20 mg tablet 20 mg PO DAILY nystatin 100,000 unit/mL suspension 5 ml PO QID 14 Days Qty: 280 0RF Rx Instructions: swish and swallow acetaminophen 500 mg capsule 500 mg PO Q6H PRN (Reason: Mild Pain (Scale Score 1-4)) hydrocodone-acetaminophen 5-325 mg tablet 1 tab PO Q6H PRN (Reason: pain) 7 Days Qty: 28 0RF ondansetron HCl 4 mg tablet 4 mg PO Q8H PRN (Reason: nausea and vomiting) Qty: 30 0RF oxycodone-acetaminophen [Percocet] 7.5-325 mg tablet 1 tab PO Q6H PRN (Reason: pain) 30 Days Qty: 120 0RF sertraline 50 mg tablet See Rx Instructions .ROUTE .COMPLEX Qty: 30 0RF Dose Instruction: TAKE 1 TABLET BY MOUTH EVERY DAY FOR DEPRESSION AND NEW BRAIN METASTASES Rx Instructions: TAKE 1 TABLET BY MOUTH EVERY DAY FOR DEPRESSION AND NEW BRAIN METASTASES Discharge Orders: Discharge ED (Routine); Ordered 04/15/23 Ordered By: Gregorio Rodriguez Referrals: Shadi Borja MD [Primary Care Provider] - Discharge Diet: Advance as tolerated Discharge Activity: Resume usual activity Patient Instructions: Fall Prevention (ED) Coding Level of Care Code ED Advertisement Compositor for Faustino Vann
--- NOTE | 2023-04-15 11:50 | CTR_ITS ---
PROCEDURE INFORMATION: Exam: CT Right Lower Extremity Without Contrast, Hip Exam date and time: 04/15/2023 12:11 PM Age: 67 years old Clinical indication: Injury or trauma; Fall; Blunt trauma; Hip; Right TECHNIQUE: Imaging protocol: CT of the right lower extremity without contrast was performed. Exam focused on the hip. Radiation optimization: All CT scans at this facility use at least one of these dose optimization techniques: automated exposure control; mA and/or kV adjustment per patient size (includes targeted exams where dose is matched to clinical indication); or iterative reconstruction. COMPARISON: CR (PELVIS, ) 04/15/2023 11:05 AM RADIATION DOSE METRICS: Total DLP (mGy-cm): 565.72 FINDINGS: Bones/joints: No acute fracture or dislocation. Mild degenerative changes right hip and sacroiliac joints. Soft tissues: Normal. Urinary bladder: Urinary bladder wall is thickened. Reproductive: Prostate is mildly enlarged. CT/CT hip RT wo con* [id number] IMPRESSION: No acute traumatic pathology. Mild degenerative change of the right hip.
[2023-04-15] MEDS: HYDROcodone-acetaminophen 5-325 mg Tablet 1 TAB PO (11:58)
--- NOTE | 2023-04-15 12:05 | CTR_ITS ---
PROCEDURE INFORMATION: Exam: CT Head Without Contrast Exam date and time: 04/15/2023 12:08 PM Age: 67 years old Clinical indication: Injury or trauma; Fall; Blunt trauma (contusions or hematomas) TECHNIQUE: Imaging protocol: Computed tomography of the head without contrast. Radiation optimization: All CT scans at this facility use at least one of these dose optimization techniques: automated exposure control; mA and/or kV adjustment per patient size (includes targeted exams where dose is matched to clinical indication); or iterative reconstruction. COMPARISON: MR head wo/w con [id number] 02/08/2023 2:24 PM RADIATION DOSE METRICS: Total DLP (mGy-cm): 1150.38 FINDINGS: Brain: There are multiple metastatic lesions scattered throughout the brain. The largest lesion measures 2.8 cm in the right frontal lobe and there is severe surrounding edema. Smaller lesions involve the right occipital lobe superiorly, both temporal lobes, along with 2 separate lesions in the left frontal lobe. All of these lesions exhibit exuberant surrounding edema. No acute hemorrhage or infarct. Cerebral ventricles: There is mild effacement of the right frontal horn. No midline shift or hydrocephalus. Paranasal sinuses: Visualized sinuses are unremarkable. No fluid levels. Mastoid air cells: Visualized mastoid air cells are well aerated. Bones/joints: Unremarkable. No acute fracture. Soft tissues: Unremarkable. CT/CT head wo con* [id number] IMPRESSION: I see no significant change since 02/08/2023. There are multiple bilateral brain masses with prominent edema
[2023-04-15 13:13] VITALS: BP 132/86; PULSE 79; RESP 16; TEMP 36.4; O2SAT 93
== END 2023-04-15 13:14 | disposition home or self-care (01) ==
PROVIDERS: Emergency Provider Emergency Medicine; PCP Family Medicine
DX: M25.551 Pain in right hip (principal); Z87.891 Personal history of nicotine dependence; I25.10 Atherosclerotic heart disease of native coronary artery without angina pectoris
CPT/HCPCS: 70450; 71045; 73502; 73700; 99284